=== PATIENT | male | born 1945 | race Caucasian/White ===

== ENCOUNTER 2020-09-23 07:20 | Inpatient (IN) | payer MEDICARE ==
[2020-09-24] MEDS ORDERED: Fluticasone Propionate Nasal Spray 16 gm Bottle NASAL PRN (19:36)
[2020-09-24] MEDS ORDERED: traMADol HCl 50 MG TAB PO PRN (19:36)
[2020-09-24] MEDS ORDERED: Dextrose 50% Abboject 50 ML SYRINGE IVP PRN (20:15)
[2020-09-24] MEDS ORDERED: Dextrose 5% in Water 1,000 ML IV PRN (20:15)
[2020-09-24] MEDS: HYDROcodone/Acetaminophen 10/325 mg Tablet PO PRN (20:34)
[2020-09-24] MEDS: Allopurinol 100 MG TAB PO SCH (20:35)
[2020-09-24] MEDS: Aspirin 81 mg Enteric Coated Tablet PO SCH (20:36)
[2020-09-24] MEDS: Lisinopril 20 MG TAB PO SCH (20:36)
[2020-09-24] MEDS: Metoprolol Tartrate 50 MG TAB PO SCH (20:37)
[2020-09-24] MEDS: CeleCOXIB 100 MG CAP PO SCH (20:37)
[2020-09-24] MEDS: Senokot S 8.6-50 MG TAB PO SCH (20:38)
[2020-09-24] MEDS: Brimonidine Tartrate 0.2% Ophth Soln 5 ml Bottle R EYE SCH (20:38)
[2020-09-24] MEDS ORDERED: BENAZEPRIL HCL 10 MG PO SCH (21:00)
[2020-09-24] MEDS ORDERED: Vancomycin HCl 750 MG VIAL IVPB SCH (23:00)
[2020-09-24] MEDS: Vancomycin HCl 750 MG in Sodium Chloride 0.9% 250 ML 250 ML IVPB SCH (23:24)
[2020-09-24] MEDS ORDERED: HYDROcodone/Acetaminophen 10/325 mg Tablet PO SCH (23:59)
[2020-09-25] MEDS ORDERED: traMADol HCl 50 MG TAB ONE ×2 (00:39→06:23)
[2020-09-25] MEDS ORDERED: Cyclobenzaprine 10 MG TAB ONE (00:39)
[2020-09-25] MEDS: traMADol HCl 50 MG TAB PO PRN ×2 (00:43→06:26)
[2020-09-25] MEDS: Cyclobenzaprine 10 MG TAB PO PRN ×2 (00:44→09:55)
[2020-09-25] MEDS: Cefepime 1 GM in Sodium Chloride 0.9% 100 ML IVPB SCH ×2 (02:56→15:13)
[2020-09-25] MEDS ORDERED: Cefepime 1 GM VIAL IVPB SCH (03:00)
[2020-09-25] MEDS: HYDROcodone/Acetaminophen 10/325 mg Tablet PO PRN ×3 (03:51→20:17)
[2020-09-25] MEDS ORDERED: HERB PO SCH (09:00)
[2020-09-25] MEDS ORDERED: MV MN PO SCH (09:00)
[2020-09-25] MEDS ORDERED: BETA SITOSTEROL PO SCH (09:00)
[2020-09-25] MEDS: Aspirin 81 mg Enteric Coated Tablet PO SCH ×2 (09:36→20:19)
[2020-09-25] MEDS: Fish Oil 1,000 MG CAP PO SCH (09:36)
[2020-09-25] MEDS: Cyanocobalamin (Vitamin B-12) 1,000 MCG TAB PO SCH (09:36)
[2020-09-25] MEDS: metFORMIN XR 500 MG TAB PO SCH ×2 (09:37→16:40)
[2020-09-25] MEDS: CeleCOXIB 100 MG CAP PO SCH ×2 (09:38→20:15)
[2020-09-25] MEDS: Glimepiride 2 MG TAB PO SCH (09:39)
[2020-09-25] MEDS: Amlodipine 5 MG TAB PO SCH (09:40)
[2020-09-25] MEDS: Metoprolol Tartrate 50 MG TAB PO SCH ×2 (09:40→20:20)
[2020-09-25] MEDS: Gabapentin 300 MG CAP PO PRN (09:40)
[2020-09-25] MEDS: Hydrochlorothiazide 25 MG TAB PO SCH (09:40)
[2020-09-25] MEDS: Ferrous Sulfate 325 MG TAB PO SCH ×2 (09:42→16:40)
[2020-09-25] MEDS: Brimonidine Tartrate 0.2% Ophth Soln 5 ml Bottle R EYE SCH ×3 (09:43→20:19)
[2020-09-25] MEDS: Calcium Carbonate 500 MG TAB PO SCH (09:43)
[2020-09-25] MEDS: Latanoprost 0.005% Ophth Soln 2.5 ml Bottle EA EYE SCH (09:43)
[2020-09-25] MEDS: Polyethylene Glycol 3350 17 GM Packet PO SCH (11:43)
[2020-09-25] MEDS: Senokot S 8.6-50 MG TAB PO SCH ×2 (11:43→20:18)
[2020-09-25] MEDS: Vancomycin HCl 750 MG in Sodium Chloride 0.9% 250 ML 250 ML IVPB SCH ×2 (11:44→23:17)
[2020-09-25] MEDS: HumaLOG 300 UNITS/3 ML VIAL SC PRN ×2 (12:06→16:44)
[2020-09-25] MEDS ORDERED: Simethicone Chewable 80 MG TAB PO PRN (12:15)
--- NOTE | 2020-09-25 16:23 | HP ---
PRIMARY CARE PHYSICIAN: Mamie Gonsales. INFECTIOUS DISEASE SPECIALIST: Juwan Fuentes MD ORTHOPEDIST: Miguelangel Graham MD COMMISSION AUDITOR: Juwan aHwkins MD REASON FOR ADMISSION: To complete IV antibiotic an rehab n [facility] after recent joit surgery/hospitalization. HISTORY OF PRESENT ILLNESS: Mr. Foster is a very pleasant 75-year-old male with history of hypertension; BPH; chronic back pain, on narcotics; asthma; and type 2 diabetes. The patient had multiple joint replacements in both knees, both hips, and right shoulder. The hips were replaced 7 years ago and then he developed worsening pain on the left hip about a week before the admission. The patient underwent left hip fluoroscopic-guided arthrocentesis with stage revision of the left hip arthroplasty for infection the aspirate culture came back negative for anaerobes after 5 days. Acid fast bacilli smear came back no growth. The patient was treated with cefepime and Vancomycin for empiric treatment for possible prosthetic infection. He was recommended to complete his IV antibiotic until the end of September per Dr. Fuentes. Postoperatively, the patient did well and was walking using a rolling walker. He is recommended by Ortho to have a complete weightbearing on the right leg by but only to put 25% weight on the left leg. The patient was subsequently transferred to [facility] to complete IV antibiotic and for further rehab while completing the antibiotic. PICC line was placed prior to discharge on 09/24/2020. He is recommended to have a weekly routine lab followup thereafter. Other postoperative complications include anemia, likely from postoperative acute blood loss; constipation; and high blood pressure. The patient is currently on Pollock, tramadol, and Celebrex for pain management. The patient reports that he only takes Pollock for the most part. This morning, he was complaining of some abdominal discomfort. He reports no BM yet at this time. He reports having bowel movement yesterday prior to transfer. On examination, he was noted to have abdominal distention, but reports that he always has a big fat belly. He reports mild discomfort, but secondary to spasm of the abdomen more than anything else. He reports that he has been passing out gas since yesterday. He takes PPI, but did not have any relief since this morning. No nausea, no vomiting, no chest pain, no shortness of breath, and no pain with breathing at this time. The patient remains afebrile. He is eating fine with no significant swallowing issues. PAST MEDICAL HISTORY: 1. Hypertension. 2. Diabetes, type 2. 3. Gout. 4. GERD. 5. Hyperlipidemia. 6. Iron-deficiency anemia. 7. Glaucoma. 8. Asthma. 9. Obesity. 10. Chronic joint pain of multiple parts as above. 11. BPH. PAST SURGICAL HISTORY: 1. Multiple joint replacements including knees, both hips, and right shoulder. 2. Cataract removal. FAMILY HISTORY: Noncontributory. SOCIAL HISTORY: He used to work in a power plant and retired. Quit smoking in . No alcohol beverage use. Denies illicit drug use. CURRENT MEDICATIONS: 1. Pollock 10/325 two tablets q.6. 2. Ventolin HFA q.6 p.r.n. 3. Allopurinol 300 mg q.p.m. 4. Amlodipine 5 mg q.a.m. 5. Aspirin 81 mg p.o. b.i.d. 6. Benazepril 20 mg p.o. q.p.m. 7. Brimonidine tartrate ophthalmic solution 0.5 mg one drop in affected eye. 8. Cefepime 1 g b.i.d. 9. Celebrex 200 mg p.o. b.i.d. 10. Cyanocobalamin 1000 mcg p.o. daily. 11. Cyclobenzaprine 10 mg p.o. t.i.d. p.r.n. 12. Ferrous sulfate 325 mg p.o. b.i.d. 13. [place]-3 fatty acid fish oil daily. 14. Fluticasone nasal spray b.i.d. p.r.n. 15. Gabapentin 300 mg p.o. t.i.d. p.r.n. 16. Glimepiride 4 mg p.o. daily. 17. Latanoprost one drop in affected eye daily. 18. Metformin XR 1000 mg p.o. b.i.d. 19. Metoprolol 50 mg p.o. b.i.d. 20. Omeprazole 40 mg q.a.m. 21. Polyethylene glycol 17 g p.o. nightly. 22. Sennoside two tablets p.o. b.i.d. 23. Tramadol 50 mg p.o. q.6 h. p.r.n. 24. Vancomycin 750 mg IV q.12. REVIEW OF SYSTEMS: GENERAL: Denies fever or chills. Reports general weakness and fatigue. No diminished appetite. HEENT: No acute visual changes or hearing changes. No cold symptoms. CARDIOLOGIC: Denies chest pain, dyspnea on exertion, paroxysmal nocturnal dyspnea. Reports leg edema intermittently, GENITOURINARY: No dysuria, hematuria, frequency, urgency, or incontinence. ABDOMEN: Denies nausea, vomiting, diarrhea, melena, rectal bleeding. MUSCULOSKELETAL: Reports [id number] intermittent joint pain per HPI. No joint swelling. SKIN: Reports blister formation since the hospitalization. Reports no issues with postoperative site. No itching. No jaundice. PSYCHIATRIC: No depressive symptoms. No anxiety. No insomnia. PHYSICAL EXAMINATION: VITAL SIGNS: Blood pressure 154/73; OH: 100, RR: 18; Temp 97.8, 02 beverly 95% Weight 231 pounds and 1.6 ounces, Height 5'8''. GENERAL : awake,alert,oriented x 3, comfortable in chair,not in acute distress. HEENT: atraumatic, PERRL, intact EOM.Moist oral mucosa, no oral lesions. NECK: supple, no lymphadenopathy, C-spine full ROM. Flat JVD. CHEST: normal excursion, nonlabored breathing. LUNGS: good air movements, clear breath sounds, no rales, crackles, wheezing. HEART: Regular rate and rhythm, Normal S1 and S2, no murmurs. ABDOMEN: obese, mildly distended, with bowel sounds appreciated in 4 quadrants. soft, nontender to direct palpation, no rebound, no guarding, negative CVA tenderness. RECTAL: good sphincteric tone, no mass, full of soft stools per rectal vault.Brownish fecal material per examining finger. EXTREMITIES: Leg leg is edematous 1+ pitting; Right leg-trace nonpitting edema. SKIN: post-operative site on the left lateral thigh is intact , shekhar in place, dry, no drainage, no periwound erythema or edema. Two opened blisters on the adjacent medial side noted. + dry linear superficial wound, covered with yellowish dry scab middle abdomen, with minimal erythematous base. The surrounding areas are hairy. NEURO: nonfocal, gait-unsteady, able to transfer from chair to bed with the use of walker. LABORATORY STUDIES: Recent blood work. CBC on 09/24/2020: WBC 12.9, hemoglobin 9, hematocrit 27.2, and platelets 266. On 09/17/2020, PT 13.6 and INR of 1. Basic metabolic panel on 09/22/2020, sodium 138, potassium 3.7, chloride 108, BUN 22, creatinine 1.03, estimated GFR 70, glucose 88, and calcium 8.3. Vanc trough on 09/21 at 14.3, 09/23 at 24.9. Renal ultrasound on 09/20/2020, prompt evidence of probable left upper renal nonobstructing calculi and evidence of postvoid residual. Vascular ultrasound on 09/20/2020 showed no evidence of deep venous thrombosis of the left lower extremity. Hip x-ray on 09/18/2020, compatible with left hip arthroplasty. ASSESSMENT AND PLAN: 1. Prosthetic hip infection, requiring terminal supervisor IV antibiotic therapy. 2. Status post left hip fluoroscopically guided arthrocentesis. 3. 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 4. Anemia, acute on chronic. 5. Diabetes type 2, [id number]. 6. Benign prostatic hypertrophy. 7. Hypertension. 8. Asthma. 9. Gout. 10. Constipation. 11. Blister formation, abdomen and left thigh. 12. Physical deconditioning. 13. Unsteady gait. PLAN: 1. The patient is admitted to [facility] to complete IV antibiotic until the end of September per ID recommendations. We will continue vancomycin and cefepime as directed. Routine vancomycin trough Q.72 h. and weekly routine blood works. 2. Continue all current medications as modified per list. We will add probiotic and simethicone p.r.n. Consider imaging studies if pain/distention persists. 3. We will continue to monitor his GI issues,to ensure regular bowel movement. 4. Routine wound care with Silvadene for blister formation and change of dressing on postoperative site daily and prn.5. Staple removal per Ortho recommendations. We will call Dr. Graham's office on Monday for further instructions and followup appointment. 5. Accu check and SSI coverage, mild algorithm. 6. PT, OT eval and treat. 7. DVT prophylaxis with low-dose aspirin b.i.d., 8. GI prophylaxis with PPI. 9. Further recommendations depending on the hospital course. CODE STATUS: The patient reports FULL CODE. DISPOSITION: Home with once appropriate. Job ID: [id number] MTDD
[2020-09-25] MEDS: Allopurinol 100 MG TAB PO SCH (20:16)
[2020-09-25] MEDS: Lisinopril 20 MG TAB PO SCH (20:19)
[2020-09-25] MEDS: Silver Sulfadiazine 50 GM TUBE TOP SCH (20:20)
[2020-09-25] MEDS ORDERED: Ondansetron ODT 4 MG TAB SL PRN (21:34)
--- NOTE | 2020-09-25 21:42 | RAD ---
KUB: 09/25/20 PROVIDED CLINICAL HISTORY: Projecting vomiting. FINDINGS: Evaluation is limited by patient body habitus. There is conspicuous gaseous distention of colon in a nonspecific manner. There is no definite small bowel dilatation. There is absence of rectal gas. The supine nature of this study is not sensitive for detection of pneumoperitoneum. Evaluation for urina ry tract calculi is limited, without gross evidence for such. IMPRESSION: Nonspecific conspicuous gaseous distention of colon. POS: JESSICA
[2020-09-25] MEDS ORDERED: Ondansetron ODT 4 MG TAB SL SCH (23:59)
[2020-09-26] MEDS: Cefepime 1 GM in Sodium Chloride 0.9% 100 ML IVPB SCH ×2 (02:51→16:13)
[2020-09-26] MEDS: Cyclobenzaprine 10 MG TAB PO PRN (05:21)
[2020-09-26] MEDS: Senokot S 8.6-50 MG TAB PO SCH ×2 (08:19→20:07)
[2020-09-26] MEDS: Polyethylene Glycol 3350 17 GM Packet PO SCH (08:20)
[2020-09-26] MEDS: Fish Oil 1,000 MG CAP PO SCH (08:20)
[2020-09-26] MEDS: metFORMIN XR 500 MG TAB PO SCH ×2 (08:20→17:11)
[2020-09-26] MEDS: Calcium Carbonate 500 MG TAB PO SCH (08:21)
[2020-09-26] MEDS: Ferrous Sulfate 325 MG TAB PO SCH ×2 (08:21→17:11)
[2020-09-26] MEDS: Glimepiride 2 MG TAB PO SCH (08:21)
[2020-09-26] MEDS: Hydrochlorothiazide 25 MG TAB PO SCH (08:21)
[2020-09-26] MEDS: Aspirin 81 mg Enteric Coated Tablet PO SCH ×2 (08:21→20:07)
[2020-09-26] MEDS: Metoprolol Tartrate 50 MG TAB PO SCH ×2 (08:21→20:07)
[2020-09-26] MEDS: Amlodipine 5 MG TAB PO SCH (08:21)
[2020-09-26] MEDS: CeleCOXIB 100 MG CAP PO SCH ×2 (08:21→20:07)
[2020-09-26] MEDS: Saccharomyces boulardii 250 MG CAP PO SCH (08:22)
[2020-09-26] MEDS: Cyanocobalamin (Vitamin B-12) 1,000 MCG TAB PO SCH (08:22)
[2020-09-26] MEDS: Latanoprost 0.005% Ophth Soln 2.5 ml Bottle EA EYE SCH (08:24)
[2020-09-26] MEDS: Brimonidine Tartrate 0.2% Ophth Soln 5 ml Bottle R EYE SCH ×3 (08:26→20:08)
[2020-09-26] MEDS ORDERED: Silver Sulfadiazine 50 GM TUBE TOP SCH (09:00)
[2020-09-26 10:28] LABS: Vancomycin, Trough 62.8 ug/mL
[2020-09-26] MEDS ORDERED: Vancomycin HCl 750 MG in Sodium Chloride 0.9% 250 ML 250 ML IVPB SCH (11:00)
[2020-09-26] MEDS ORDERED: Simethicone Chewable 80 MG TAB PO PRN (11:03)
[2020-09-26] MEDS ORDERED: Fleet Enema 133 ML BOT FS PRN (11:04)
[2020-09-26] MEDS ORDERED: Bisacodyl 10 MG SUPP PR PRN (11:04)
[2020-09-26] MEDS: HYDROcodone/Acetaminophen 10/325 mg Tablet PO PRN ×3 (12:22→20:05)
[2020-09-26] MEDS: Lisinopril 20 MG TAB PO SCH (20:09)
[2020-09-26] MEDS: Allopurinol 100 MG TAB PO SCH (20:09)
[2020-09-26] MEDS: Silver Sulfadiazine 50 GM TUBE TOP SCH (20:10)
[2020-09-27] MEDS: Cefepime 1 GM in Sodium Chloride 0.9% 100 ML IVPB SCH ×2 (02:00→14:56)
[2020-09-27 07:00] LABS: #Basophils 0.1 thou/uL (0.0-0.2); #Eosinphils 1.2 thou/uL (0.0-0.7); #Lymphocytes 1.1 thou/uL (1.20-3.40); #Monocytes 1.2 thou/uL (0.11-0.59); #Neutrophils 7.5 thou/uL (1.40-6.50); %Basophils 1.1 % (0.0-1.0); %Lymphocytes 9.8 % (21.0-51.0); %Monocytes 10.4 % (0.0-10.0); %Neutrophils 67.7 % (42.0-75.0); Mean Corpuscular HGB CONC 33.4 g/dL (32.0-36.0); Mean Corpuscular Hemoglobin 30.2 pg (27.0-31.0); Mean Corpuscular Volume 90.2 fL (78.0-98.0); Mean Platelet Volume 6.2 fL (7.4-10.4); Platelet Count 331 thou/uL (130-400); RBC Distribution Width 14.4 % (11.5-14.5); Red Blood Cell (RBC) Count 2.65 mill/uL (4.70-6.10); White Blood Cell (WBC) Count 11.1 thou/uL (4.8-10.8)
[2020-09-27 07:01] LABS: Anion Gap 14 mmol/L (10-20); BUN (Urea Nitrogen) 70 mg/dL (8.4-25.7); Calc. Creatinine Clearance 26 mL/min (70-130); Carbon Dioxide 18 mmol/L (23-31); Chloride 108 mmol/L (98-107); Potassium 4.2 mmol/L (3.5-5.1); Sodium 136 mmol/L (136-145)
[2020-09-27 07:02] LABS: Calcium 8.2 mg/dL (7.8-10.44); Glucose 124 mg/dL (83-110)
[2020-09-27 08:28] LABS: Vancomycin, Random 46.6 ug/mL (See Comment)
[2020-09-27] MEDS: Polyethylene Glycol 3350 17 GM Packet PO SCH (08:36)
[2020-09-27] MEDS: Saccharomyces boulardii 250 MG CAP PO SCH (08:38)
[2020-09-27] MEDS: CeleCOXIB 100 MG CAP PO SCH (08:38)
[2020-09-27] MEDS: Ferrous Sulfate 325 MG TAB PO SCH ×2 (08:38→16:59)
[2020-09-27] MEDS: Cyanocobalamin (Vitamin B-12) 1,000 MCG TAB PO SCH (08:38)
[2020-09-27] MEDS: metFORMIN XR 500 MG TAB PO SCH (08:38)
[2020-09-27] MEDS: Glimepiride 2 MG TAB PO SCH (08:38)
[2020-09-27] MEDS: Senokot S 8.6-50 MG TAB PO SCH ×2 (08:39→21:12)
[2020-09-27] MEDS: Aspirin 81 mg Enteric Coated Tablet PO SCH ×2 (08:39→21:12)
[2020-09-27] MEDS: Fish Oil 1,000 MG CAP PO SCH (08:39)
[2020-09-27] MEDS: Amlodipine 5 MG TAB PO SCH (08:40)
[2020-09-27] MEDS: Metoprolol Tartrate 50 MG TAB PO SCH ×2 (08:40→21:12)
[2020-09-27] MEDS: Calcium Carbonate 500 MG TAB PO SCH (08:40)
[2020-09-27] MEDS: HYDROcodone/Acetaminophen 10/325 mg Tablet PO PRN ×2 (08:41→19:35)
[2020-09-27] MEDS: Brimonidine Tartrate 0.2% Ophth Soln 5 ml Bottle R EYE SCH ×3 (08:42→21:44)
[2020-09-27] MEDS: Latanoprost 0.005% Ophth Soln 2.5 ml Bottle EA EYE SCH (08:42)
[2020-09-27] MEDS: Hydrochlorothiazide 25 MG TAB PO SCH (08:43)
[2020-09-27] MEDS: Albuterol 200 PUFF (6.7GM INHALER) INH PRN (19:37)
[2020-09-27] MEDS ORDERED: HYDROcodone/Acetaminophen 10/325 mg Tablet PO SCH (21:30)
[2020-09-27] MEDS: Silver Sulfadiazine 50 GM TUBE TOP SCH (21:45)
[2020-09-28] MEDS: Cefepime 1 GM in Sodium Chloride 0.9% 100 ML IVPB SCH ×2 (02:34→20:38)
[2020-09-28 05:59] LABS: Anion Gap 12 mmol/L (10-20); BUN (Urea Nitrogen) 59 mg/dL (8.4-25.7); Calc. Creatinine Clearance 41 mL/min (70-130); Calcium 8.4 mg/dL (7.8-10.44); Carbon Dioxide 20 mmol/L (23-31); Chloride 110 mmol/L (98-107); Glucose 103 mg/dL (83-110); Sodium 138 mmol/L (136-145)
[2020-09-28] MEDS: Saccharomyces boulardii 250 MG CAP PO SCH (08:16)
[2020-09-28] MEDS: Senokot S 8.6-50 MG TAB PO SCH ×2 (08:16→20:40)
[2020-09-28] MEDS: Ferrous Sulfate 325 MG TAB PO SCH ×2 (08:16→17:07)
[2020-09-28] MEDS: Aspirin 81 mg Enteric Coated Tablet PO SCH ×2 (08:17→20:43)
[2020-09-28] MEDS: Fish Oil 1,000 MG CAP PO SCH (08:17)
[2020-09-28] MEDS: Calcium Carbonate 500 MG TAB PO SCH (08:17)
[2020-09-28] MEDS: Cyanocobalamin (Vitamin B-12) 1,000 MCG TAB PO SCH (08:17)
[2020-09-28] MEDS: Amlodipine 5 MG TAB PO SCH (08:17)
[2020-09-28] MEDS: Metoprolol Tartrate 50 MG TAB PO SCH ×2 (08:17→20:43)
[2020-09-28] MEDS: Brimonidine Tartrate 0.2% Ophth Soln 5 ml Bottle R EYE SCH ×3 (08:18→20:43)
[2020-09-28] MEDS: Polyethylene Glycol 3350 17 GM Packet PO SCH (08:18)
[2020-09-28] MEDS: Latanoprost 0.005% Ophth Soln 2.5 ml Bottle EA EYE SCH (08:18)
[2020-09-28] MEDS: HYDROcodone/Acetaminophen 10/325 mg Tablet PO PRN (11:29)
[2020-09-28 11:33] LABS: Vancomycin, Trough 32.9 ug/mL
[2020-09-28] MEDS ORDERED: VANCOMYCIN IVPB SCH ×2 (13:30)
[2020-09-28] MEDS: Silver Sulfadiazine 50 GM TUBE TOP SCH (20:42)
[2020-09-28] MEDS ORDERED: Ipratropium/Albuterol Sulfate 4 GM AER IH SCH (21:45)
[2020-09-28] MEDS: traMADol HCl 50 MG TAB PO PRN (22:12)
[2020-09-29] MEDS: Ipratropium/Albuterol Sulfate 4 GM AER IH PRN (05:20)
[2020-09-29] MEDS: Ferrous Sulfate 325 MG TAB PO SCH ×2 (08:11→17:26)
[2020-09-29] MEDS: Metoprolol Tartrate 50 MG TAB PO SCH ×2 (08:12→21:15)
[2020-09-29] MEDS: Amlodipine 5 MG TAB PO SCH (08:12)
[2020-09-29] MEDS: Aspirin 81 mg Enteric Coated Tablet PO SCH ×2 (08:12→21:15)
[2020-09-29] MEDS: Cyanocobalamin (Vitamin B-12) 1,000 MCG TAB PO SCH (08:13)
[2020-09-29] MEDS: Saccharomyces boulardii 250 MG CAP PO SCH (08:13)
[2020-09-29] MEDS: Fish Oil 1,000 MG CAP PO SCH (08:13)
[2020-09-29] MEDS: Calcium Carbonate 500 MG TAB PO SCH (08:13)
[2020-09-29] MEDS: Latanoprost 0.005% Ophth Soln 2.5 ml Bottle EA EYE SCH (08:15)
[2020-09-29] MEDS: Polyethylene Glycol 3350 17 GM Packet PO SCH (08:15)
[2020-09-29] MEDS: Senokot S 8.6-50 MG TAB PO SCH ×2 (08:15→21:15)
[2020-09-29] MEDS: Brimonidine Tartrate 0.2% Ophth Soln 5 ml Bottle R EYE SCH ×3 (08:18→21:13)
[2020-09-29 10:28] LABS: Vancomycin, Random 21.9 ug/mL (See Comment)
[2020-09-29 10:29] LABS: Anion Gap 14 mmol/L (10-20); BUN (Urea Nitrogen) 41 mg/dL (8.4-25.7); Calc. Creatinine Clearance 57 mL/min (70-130); Calcium 8.8 mg/dL (7.8-10.44); Carbon Dioxide 20 mmol/L (23-31); Chloride 107 mmol/L (98-107); Glucose 239 mg/dL (83-110); Potassium 4.4 mmol/L (3.5-5.1); Sodium 137 mmol/L (136-145)
[2020-09-29] MEDS: HumaLOG 300 UNITS/3 ML VIAL SC PRN ×2 (12:26→17:43)
[2020-09-29] MEDS: traMADol HCl 50 MG TAB PO PRN ×2 (13:04→21:13)
--- NOTE | 2020-09-29 19:50 | RAD ---
SINGLE VIEW OF THE CHEST: 09/29/20 COMPARISON: 08/22/19. HISTORY: Persistent cough. FINDINGS: Single view of the chest shows normal sized cardiomediastinal silhouette with atherosclerotic calcifi cations in the aorta. There is a left sided PICC line with its tip in the superior vena cava. There i s no evidence of consolidation. There may be a small left pleural effusion. The patient has a right s houlder arthroplasty. IMPRESSION: Possible left pleural effusion. POS: MELANIEA
[2020-09-29] MEDS ORDERED: Promethazine DM 6.25-15mg/5ml 120 ML BOT PO PRN (20:38)
[2020-09-29] MEDS ORDERED: Promethazine HCl 6.25 MG/5 ML Syrup ONE (20:56)
[2020-09-29] MEDS: Cefepime 1 GM in Sodium Chloride 0.9% 100 ML IVPB SCH (21:12)
[2020-09-29] MEDS: Vancomycin HCl 1 GM in Sodium Chloride 0.9% 250 ML 250 ML IVPB SCH (21:13)
[2020-09-29] MEDS: Silver Sulfadiazine 50 GM TUBE TOP SCH (21:13)
[2020-09-30] MEDS: Ipratropium/Albuterol Sulfate 4 GM AER IH PRN ×2 (05:47→20:38)
[2020-09-30] MEDS: Benzonatate 100 MG CAP PO SCH ×3 (08:21→20:37)
[2020-09-30] MEDS: Metoprolol Tartrate 50 MG TAB PO SCH ×2 (08:21→20:37)
[2020-09-30] MEDS: Calcium Carbonate 500 MG TAB PO SCH (08:22)
[2020-09-30] MEDS: Saccharomyces boulardii 250 MG CAP PO SCH (08:22)
[2020-09-30] MEDS: Cyanocobalamin (Vitamin B-12) 1,000 MCG TAB PO SCH (08:22)
[2020-09-30] MEDS: Fish Oil 1,000 MG CAP PO SCH (08:22)
[2020-09-30] MEDS: Latanoprost 0.005% Ophth Soln 2.5 ml Bottle EA EYE SCH (08:23)
[2020-09-30] MEDS: Ferrous Sulfate 325 MG TAB PO SCH ×2 (08:23→17:22)
[2020-09-30] MEDS: Amlodipine 5 MG TAB PO SCH (08:23)
[2020-09-30] MEDS: Aspirin 81 mg Enteric Coated Tablet PO SCH ×2 (08:23→20:37)
[2020-09-30] MEDS: Brimonidine Tartrate 0.2% Ophth Soln 5 ml Bottle R EYE SCH ×3 (08:24→20:37)
[2020-09-30] MEDS: Polyethylene Glycol 3350 17 GM Packet PO SCH (08:24)
[2020-09-30] MEDS: Senokot S 8.6-50 MG TAB PO SCH (08:24)
[2020-09-30] MEDS: HumaLOG 300 UNITS/3 ML VIAL SC PRN (17:21)
[2020-09-30 18:14] LABS: SARS-CoV-2 MS2 Positive; SARS-CoV-2 N Gene Negative; SARS-CoV-2 S Gene Negative; SARS-CoV-2 by NAA Not Detected (NotDetected); SARS-CoV-2 orf1ab Negative
[2020-09-30] MEDS ORDERED: Polyethylene Glycol 3350 17 GM Packet PO PRN (18:55)
[2020-09-30] MEDS ORDERED: Senokot S 8.6-50 MG TAB PO PRN (18:56)
[2020-09-30] MEDS: traMADol HCl 50 MG TAB PO PRN (20:36)
[2020-09-30] MEDS: Silver Sulfadiazine 50 GM TUBE TOP SCH (20:38)
[2020-09-30] MEDS: Cefepime 1 GM in Sodium Chloride 0.9% 100 ML IVPB SCH (20:38)
[2020-09-30] MEDS: Vancomycin HCl 1 GM in Sodium Chloride 0.9% 250 ML 250 ML IVPB SCH (21:08)
[2020-09-30 21:41] LABS: Vancomycin, Trough 15.9 ug/mL
[2020-10-01] MEDS: HYDROcodone/Acetaminophen 10/325 mg Tablet PO PRN ×3 (03:33→20:07)
[2020-10-01] MEDS: Gabapentin 300 MG CAP PO PRN (03:34)
[2020-10-01] MEDS: Fish Oil 1,000 MG CAP PO SCH (08:22)
[2020-10-01] MEDS: Aspirin 81 mg Enteric Coated Tablet PO SCH ×2 (08:22→20:06)
[2020-10-01] MEDS: Amlodipine 5 MG TAB PO SCH (08:22)
[2020-10-01] MEDS: Ferrous Sulfate 325 MG TAB PO SCH ×2 (08:22→17:22)
[2020-10-01] MEDS: Cyanocobalamin (Vitamin B-12) 1,000 MCG TAB PO SCH (08:23)
[2020-10-01] MEDS: Metoprolol Tartrate 50 MG TAB PO SCH ×2 (08:23→20:06)
[2020-10-01] MEDS: Calcium Carbonate 500 MG TAB PO SCH (08:23)
[2020-10-01] MEDS: Saccharomyces boulardii 250 MG CAP PO SCH (08:23)
[2020-10-01] MEDS: Benzonatate 100 MG CAP PO SCH ×3 (08:23→20:07)
[2020-10-01] MEDS: Brimonidine Tartrate 0.2% Ophth Soln 5 ml Bottle R EYE SCH ×3 (08:23→20:08)
[2020-10-01] MEDS: Latanoprost 0.005% Ophth Soln 2.5 ml Bottle EA EYE SCH (08:24)
[2020-10-01] MEDS: Ipratropium/Albuterol Sulfate 4 GM AER IH PRN (08:34)
[2020-10-01] MEDS: Albuterol 200 PUFF (6.7GM INHALER) INH PRN ×2 (08:35→17:22)
[2020-10-01] MEDS: HumaLOG 300 UNITS/3 ML VIAL SC PRN ×3 (08:36→17:23)
[2020-10-01] MEDS ORDERED: Finasteride 5 MG TAB PO SCH ×2 (18:30→21:00)
[2020-10-01] MEDS: Cefepime 1 GM in Sodium Chloride 0.9% 100 ML IVPB SCH (20:07)
[2020-10-01] MEDS: Silver Sulfadiazine 50 GM TUBE TOP SCH (20:08)
[2020-10-01] MEDS: Vancomycin HCl 1 GM in Sodium Chloride 0.9% 250 ML 250 ML IVPB SCH (21:15)
[2020-10-01 22:40] LABS: Anion Gap 13 mmol/L (10-20); BUN (Urea Nitrogen) 25 mg/dL (8.4-25.7); CRP (Inflammatory) 8.74 mg/dL (= or < 0.5); Calc. Creatinine Clearance 71 mL/min (70-130); Calcium 8.5 mg/dL (7.8-10.44); Carbon Dioxide 25 mmol/L (23-31); Chloride 101 mmol/L (98-107); Glucose 184 mg/dL (83-110); Potassium 4.5 mmol/L (3.5-5.1); Sodium 134 mmol/L (136-145); Vancomycin, Trough 13.1 ug/mL
[2020-10-02 01:02] LABS: Hemoglobin 8.4 g/dL (14.0-18.0); Mean Corpuscular HGB CONC 32.7 g/dL (32.0-36.0); Mean Corpuscular Hemoglobin 29.4 pg (27.0-31.0); Mean Corpuscular Volume 89.9 fL (78.0-98.0); RBC Distribution Width 14.9 % (11.5-14.5); Red Blood Cell (RBC) Count 2.87 mill/uL (4.70-6.10); White Blood Cell (WBC) Count 11.7 thou/uL (4.8-10.8)
[2020-10-02 01:03] LABS: MDiff Complete? YES; Mean Platelet Volume 5.7 fL (7.4-10.4); Platelet Count 461 thou/uL (130-400)
[2020-10-02 01:12] LABS: Band 3 % (5-11); Delete Auto Diff?? YES; Eosinophils 5 % (0-10); Lymphocytes 12 % (21-51); Monocytes 13 % (0-10); Neutrophil 67 % (42-75)
[2020-10-02 01:13] LABS: Anisocytosis MODERATE=16-30 cells (100X) (0-5/hpf); Hypochromia SLIGHT = 6-15 cells (100X) (0-5/hpf); Platelet Morphology Comment Appears Increased
[2020-10-02] MEDS: Ipratropium/Albuterol Sulfate 4 GM AER IH PRN (08:16)
[2020-10-02] MEDS: Brimonidine Tartrate 0.2% Ophth Soln 5 ml Bottle R EYE SCH ×3 (08:17→20:45)
[2020-10-02] MEDS: Ferrous Sulfate 325 MG TAB PO SCH ×2 (08:18→17:34)
[2020-10-02] MEDS: Metoprolol Tartrate 50 MG TAB PO SCH ×2 (08:18→20:45)
[2020-10-02] MEDS: Aspirin 81 mg Enteric Coated Tablet PO SCH ×2 (08:18→20:42)
[2020-10-02] MEDS: Cyanocobalamin (Vitamin B-12) 1,000 MCG TAB PO SCH (08:19)
[2020-10-02] MEDS: Benzonatate 100 MG CAP PO SCH ×3 (08:19→20:43)
[2020-10-02] MEDS: Calcium Carbonate 500 MG TAB PO SCH (08:19)
[2020-10-02] MEDS: Saccharomyces boulardii 250 MG CAP PO SCH (08:19)
[2020-10-02] MEDS: Fish Oil 1,000 MG CAP PO SCH (08:19)
[2020-10-02] MEDS: Amlodipine 5 MG TAB PO SCH (08:19)
[2020-10-02] MEDS: Finasteride 5 MG TAB PO SCH (08:19)
[2020-10-02] MEDS: Latanoprost 0.005% Ophth Soln 2.5 ml Bottle EA EYE SCH (08:20)
[2020-10-02] MEDS: HumaLOG 300 UNITS/3 ML VIAL SC PRN (08:21)
[2020-10-02] MEDS: HYDROcodone/Acetaminophen 10/325 mg Tablet PO PRN ×2 (17:34→23:41)
[2020-10-02] MEDS: Cefepime 1 GM in Sodium Chloride 0.9% 100 ML IVPB SCH (20:42)
[2020-10-02] MEDS: Tamsulosin HCl 0.4 MG CAP PO SCH (20:44)
[2020-10-02] MEDS: Silver Sulfadiazine 50 GM TUBE TOP SCH (20:46)
[2020-10-02] MEDS: traMADol HCl 50 MG TAB PO PRN (21:28)
[2020-10-02] MEDS: Vancomycin HCl 1 GM in Sodium Chloride 0.9% 250 ML 250 ML IVPB SCH (21:56)
[2020-10-03] MEDS: traMADol HCl 50 MG TAB PO PRN ×2 (05:21→22:20)
[2020-10-03 06:16] LABS: Anion Gap 12 mmol/L (10-20); BUN (Urea Nitrogen) 23 mg/dL (8.4-25.7); Calc. Creatinine Clearance 77 mL/min (70-130); Carbon Dioxide 26 mmol/L (23-31); Chloride 102 mmol/L (98-107); Glucose 172 mg/dL (83-110); Potassium 5.2 mmol/L (3.5-5.1); Sodium 135 mmol/L (136-145)
[2020-10-03] MEDS: HYDROcodone/Acetaminophen 10/325 mg Tablet PO PRN ×2 (08:25→15:42)
[2020-10-03] MEDS: Amlodipine 5 MG TAB PO SCH (08:26)
[2020-10-03] MEDS: Benzonatate 100 MG CAP PO SCH ×3 (08:26→21:44)
[2020-10-03] MEDS: Aspirin 81 mg Enteric Coated Tablet PO SCH ×2 (08:26→21:44)
[2020-10-03] MEDS: Finasteride 5 MG TAB PO SCH (08:27)
[2020-10-03] MEDS: Calcium Carbonate 500 MG TAB PO SCH (08:27)
[2020-10-03] MEDS: Fish Oil 1,000 MG CAP PO SCH (08:27)
[2020-10-03] MEDS: Metoprolol Tartrate 50 MG TAB PO SCH ×2 (08:27→21:45)
[2020-10-03] MEDS: Cyanocobalamin (Vitamin B-12) 1,000 MCG TAB PO SCH (08:27)
[2020-10-03] MEDS: Ferrous Sulfate 325 MG TAB PO SCH ×2 (08:27→17:08)
[2020-10-03] MEDS: Saccharomyces boulardii 250 MG CAP PO SCH (08:27)
[2020-10-03] MEDS: Brimonidine Tartrate 0.2% Ophth Soln 5 ml Bottle R EYE SCH ×3 (08:27→21:46)
[2020-10-03] MEDS: Latanoprost 0.005% Ophth Soln 2.5 ml Bottle EA EYE SCH (08:28)
[2020-10-03] MEDS: HumaLOG 300 UNITS/3 ML VIAL SC PRN ×2 (08:29→17:09)
[2020-10-03] MEDS: Tamsulosin HCl 0.4 MG CAP PO SCH (21:45)
[2020-10-03] MEDS: Cefepime 1 GM in Sodium Chloride 0.9% 100 ML IVPB SCH (21:46)
[2020-10-03] MEDS: Silver Sulfadiazine 50 GM TUBE TOP SCH (22:11)
[2020-10-03 22:54] LABS: Vancomycin, Trough 12.8 ug/mL
[2020-10-04] MEDS: Vancomycin HCl 1 GM in Sodium Chloride 0.9% 250 ML 250 ML IVPB SCH ×2 (01:38)
[2020-10-04] MEDS: HYDROcodone/Acetaminophen 10/325 mg Tablet PO PRN ×2 (07:54→21:06)
[2020-10-04] MEDS: HumaLOG 300 UNITS/3 ML VIAL SC PRN ×2 (08:30→17:17)
[2020-10-04] MEDS: Aspirin 81 mg Enteric Coated Tablet PO SCH ×2 (08:31→21:05)
[2020-10-04] MEDS: Fish Oil 1,000 MG CAP PO SCH (08:31)
[2020-10-04] MEDS: Metoprolol Tartrate 50 MG TAB PO SCH ×2 (08:31→21:06)
[2020-10-04] MEDS: Benzonatate 100 MG CAP PO SCH ×3 (08:31→21:05)
[2020-10-04] MEDS: Amlodipine 5 MG TAB PO SCH (08:31)
[2020-10-04] MEDS: Cyanocobalamin (Vitamin B-12) 1,000 MCG TAB PO SCH (08:31)
[2020-10-04] MEDS: Ferrous Sulfate 325 MG TAB PO SCH ×2 (08:31→17:18)
[2020-10-04] MEDS: Brimonidine Tartrate 0.2% Ophth Soln 5 ml Bottle R EYE SCH ×3 (08:32→21:10)
[2020-10-04] MEDS: Saccharomyces boulardii 250 MG CAP PO SCH (08:32)
[2020-10-04] MEDS: Calcium Carbonate 500 MG TAB PO SCH (08:32)
[2020-10-04] MEDS: Latanoprost 0.005% Ophth Soln 2.5 ml Bottle EA EYE SCH (08:32)
[2020-10-04] MEDS: Finasteride 5 MG TAB PO SCH (08:32)
[2020-10-04] MEDS: Tamsulosin HCl 0.4 MG CAP PO SCH (21:05)
[2020-10-04] MEDS: Cefepime 1 GM in Sodium Chloride 0.9% 100 ML IVPB SCH (21:08)
[2020-10-04] MEDS: Silver Sulfadiazine 50 GM TUBE TOP SCH (21:10)
[2020-10-05] MEDS: Vancomycin HCl 1 GM in Sodium Chloride 0.9% 250 ML 250 ML IVPB SCH (02:11)
[2020-10-05 03:37] LABS: Vancomycin, Trough 12.2 ug/mL
[2020-10-05] MEDS: Ferrous Sulfate 325 MG TAB PO SCH ×2 (08:24→17:53)
[2020-10-05] MEDS: Amlodipine 5 MG TAB PO SCH (08:25)
[2020-10-05] MEDS: Benzonatate 100 MG CAP PO SCH ×3 (08:25→21:07)
[2020-10-05] MEDS: Aspirin 81 mg Enteric Coated Tablet PO SCH ×2 (08:25→21:07)
[2020-10-05] MEDS: Brimonidine Tartrate 0.2% Ophth Soln 5 ml Bottle R EYE SCH ×3 (08:26→21:11)
[2020-10-05] MEDS: Calcium Carbonate 500 MG TAB PO SCH (08:26)
[2020-10-05] MEDS: Finasteride 5 MG TAB PO SCH (08:27)
[2020-10-05] MEDS: Latanoprost 0.005% Ophth Soln 2.5 ml Bottle EA EYE SCH (08:27)
[2020-10-05] MEDS: Fish Oil 1,000 MG CAP PO SCH (08:27)
[2020-10-05] MEDS: Saccharomyces boulardii 250 MG CAP PO SCH (08:27)
[2020-10-05] MEDS: Metoprolol Tartrate 50 MG TAB PO SCH ×2 (08:27→21:08)
[2020-10-05] MEDS: Cyanocobalamin (Vitamin B-12) 1,000 MCG TAB PO SCH (08:27)
[2020-10-05] MEDS: HumaLOG 300 UNITS/3 ML VIAL SC PRN ×3 (08:30→18:06)
[2020-10-05] MEDS: Ipratropium/Albuterol Sulfate 4 GM AER IH PRN (08:48)
[2020-10-05] MEDS: Albuterol 200 PUFF (6.7GM INHALER) INH PRN (08:49)
[2020-10-05] MEDS: HYDROcodone/Acetaminophen 10/325 mg Tablet PO PRN (15:16)
[2020-10-05] MEDS: Cefepime 1 GM in Sodium Chloride 0.9% 100 ML IVPB SCH (17:54)
[2020-10-05] MEDS ORDERED: Cefepime 1 GM in Sodium Chloride 0.9% 100 ML IVPB SCH (20:00)
[2020-10-05] MEDS: Tamsulosin HCl 0.4 MG CAP PO SCH (21:07)
[2020-10-05] MEDS: Vancomycin HCl 750 MG in Sodium Chloride 0.9% 250 ML 250 ML IVPB SCH (21:08)
[2020-10-05] MEDS: Silver Sulfadiazine 50 GM TUBE TOP SCH (21:11)
[2020-10-05] MEDS: Vancomycin HCl 500 MG in Sodium Chloride 0.9% 100 ML IVPB SCH (21:36)
[2020-10-06] MEDS: HYDROcodone/Acetaminophen 10/325 mg Tablet PO PRN ×3 (00:45→19:38)
[2020-10-06] MEDS ORDERED: Vancomycin HCl 750 MG in Sodium Chloride 0.9% 250 ML 250 ML IVPB SCH (02:00)
[2020-10-06] MEDS: traMADol HCl 50 MG TAB PO PRN ×2 (02:18→22:30)
[2020-10-06] MEDS ORDERED: Vancomycin HCl 500 MG in Sodium Chloride 0.9% 100 ML IVPB SCH (03:00)
[2020-10-06] MEDS: Ipratropium/Albuterol Sulfate 4 GM AER IH PRN (08:31)
[2020-10-06] MEDS: Brimonidine Tartrate 0.2% Ophth Soln 5 ml Bottle R EYE SCH ×3 (08:32→20:47)
[2020-10-06] MEDS: Ferrous Sulfate 325 MG TAB PO SCH ×2 (08:33→16:53)
[2020-10-06] MEDS: Amlodipine 5 MG TAB PO SCH (08:33)
[2020-10-06] MEDS: Metoprolol Tartrate 50 MG TAB PO SCH ×2 (08:34→20:46)
[2020-10-06] MEDS: Cyanocobalamin (Vitamin B-12) 1,000 MCG TAB PO SCH (08:34)
[2020-10-06] MEDS: Aspirin 81 mg Enteric Coated Tablet PO SCH ×2 (08:34→20:45)
[2020-10-06] MEDS: Finasteride 5 MG TAB PO SCH (08:34)
[2020-10-06] MEDS: Saccharomyces boulardii 250 MG CAP PO SCH (08:34)
[2020-10-06] MEDS: Benzonatate 100 MG CAP PO SCH ×3 (08:34→20:46)
[2020-10-06] MEDS: Fish Oil 1,000 MG CAP PO SCH (08:34)
[2020-10-06] MEDS: Latanoprost 0.005% Ophth Soln 2.5 ml Bottle EA EYE SCH (08:34)
[2020-10-06] MEDS: Calcium Carbonate 500 MG TAB PO SCH (08:34)
[2020-10-06] MEDS: HumaLOG 300 UNITS/3 ML VIAL SC PRN ×3 (08:38→16:54)
[2020-10-06] MEDS: Cefepime 1 GM in Sodium Chloride 0.9% 100 ML IVPB SCH (16:57)
[2020-10-06] MEDS: Tamsulosin HCl 0.4 MG CAP PO SCH (20:47)
[2020-10-06] MEDS: Vancomycin HCl 750 MG in Sodium Chloride 0.9% 250 ML 250 ML IVPB SCH (20:48)
[2020-10-06] MEDS: Silver Sulfadiazine 50 GM TUBE TOP SCH (21:20)
[2020-10-06] MEDS: Vancomycin HCl 500 MG in Sodium Chloride 0.9% 100 ML IVPB SCH (21:50)
[2020-10-07] MEDS: Fish Oil 1,000 MG CAP PO SCH (08:45)
[2020-10-07] MEDS: Aspirin 81 mg Enteric Coated Tablet PO SCH ×2 (08:45→21:39)
[2020-10-07] MEDS: Amlodipine 5 MG TAB PO SCH (08:46)
[2020-10-07] MEDS: Calcium Carbonate 500 MG TAB PO SCH (08:46)
[2020-10-07] MEDS: Cyanocobalamin (Vitamin B-12) 1,000 MCG TAB PO SCH (08:46)
[2020-10-07] MEDS: Ferrous Sulfate 325 MG TAB PO SCH ×2 (08:46→22:42)
[2020-10-07] MEDS: Benzonatate 100 MG CAP PO SCH ×3 (08:46→22:41)
[2020-10-07] MEDS: Finasteride 5 MG TAB PO SCH (08:46)
[2020-10-07] MEDS: Saccharomyces boulardii 250 MG CAP PO SCH (08:46)
[2020-10-07] MEDS: Metoprolol Tartrate 50 MG TAB PO SCH ×2 (08:47→21:40)
[2020-10-07] MEDS: HumaLOG 300 UNITS/3 ML VIAL SC PRN ×3 (08:47→21:44)
[2020-10-07] MEDS: Latanoprost 0.005% Ophth Soln 2.5 ml Bottle EA EYE SCH (08:52)
[2020-10-07] MEDS: Brimonidine Tartrate 0.2% Ophth Soln 5 ml Bottle R EYE SCH ×3 (08:52→22:52)
[2020-10-07] MEDS: HYDROcodone/Acetaminophen 10/325 mg Tablet PO PRN ×2 (10:11→19:38)
[2020-10-07] MEDS ORDERED: Sodium Chloride 0.9% 20 ML ONE (17:17)
[2020-10-07 20:50] LABS: Vancomycin, Trough 14.6 ug/mL
[2020-10-07] MEDS: Tamsulosin HCl 0.4 MG CAP PO SCH (21:40)
[2020-10-07] MEDS: Vancomycin HCl 750 MG in Sodium Chloride 0.9% 250 ML 250 ML IVPB SCH (21:41)
[2020-10-07] MEDS: Silver Sulfadiazine 50 GM TUBE TOP SCH (22:40)
[2020-10-07] MEDS: Cefepime 1 GM in Sodium Chloride 0.9% 100 ML IVPB SCH (22:42)
[2020-10-07] MEDS: Vancomycin HCl 500 MG in Sodium Chloride 0.9% 100 ML IVPB SCH (22:49)
[2020-10-08] MEDS: traMADol HCl 50 MG TAB PO PRN (00:21)
[2020-10-08] MEDS: Melatonin 3 MG TAB PO PRN (00:22)
[2020-10-08] MEDS: Gabapentin 300 MG CAP PO PRN (00:24)
[2020-10-08] MEDS: HYDROcodone/Acetaminophen 10/325 mg Tablet PO PRN ×2 (04:56→19:40)
[2020-10-08] MEDS: HumaLOG 300 UNITS/3 ML VIAL SC PRN ×2 (08:40→17:06)
[2020-10-08] MEDS: Fish Oil 1,000 MG CAP PO SCH (08:40)
[2020-10-08] MEDS: Finasteride 5 MG TAB PO SCH (08:41)
[2020-10-08] MEDS: Saccharomyces boulardii 250 MG CAP PO SCH (08:41)
[2020-10-08] MEDS: Cyanocobalamin (Vitamin B-12) 1,000 MCG TAB PO SCH (08:41)
[2020-10-08] MEDS: Benzonatate 100 MG CAP PO SCH ×3 (08:41→20:49)
[2020-10-08] MEDS: Calcium Carbonate 500 MG TAB PO SCH (08:41)
[2020-10-08] MEDS: Metoprolol Tartrate 50 MG TAB PO SCH ×2 (08:41→20:50)
[2020-10-08] MEDS: Amlodipine 5 MG TAB PO SCH (08:42)
[2020-10-08] MEDS: Ferrous Sulfate 325 MG TAB PO SCH ×2 (08:42→17:08)
[2020-10-08] MEDS: Aspirin 81 mg Enteric Coated Tablet PO SCH ×2 (08:42→20:49)
[2020-10-08] MEDS: Brimonidine Tartrate 0.2% Ophth Soln 5 ml Bottle R EYE SCH ×3 (08:42→20:51)
[2020-10-08] MEDS: Latanoprost 0.005% Ophth Soln 2.5 ml Bottle EA EYE SCH (08:42)
[2020-10-08] MEDS: Cefepime 1 GM in Sodium Chloride 0.9% 100 ML IVPB SCH (17:08)
[2020-10-08] MEDS: Tamsulosin HCl 0.4 MG CAP PO SCH (20:50)
[2020-10-08] MEDS: Vancomycin HCl 750 MG in Sodium Chloride 0.9% 250 ML 250 ML IVPB SCH (20:52)
[2020-10-08] MEDS: Vancomycin HCl 500 MG in Sodium Chloride 0.9% 100 ML IVPB SCH (21:39)
[2020-10-08] MEDS: Silver Sulfadiazine 50 GM TUBE TOP SCH (22:00)
[2020-10-09 06:07] LABS: Anion Gap 13 mmol/L (10-20); BUN (Urea Nitrogen) 18 mg/dL (8.4-25.7); CRP (Inflammatory) 5.65 mg/dL (= or < 0.5); Calc. Creatinine Clearance 74 mL/min (70-130); Calcium 9.1 mg/dL (7.8-10.44); Carbon Dioxide 26 mmol/L (23-31); Chloride 104 mmol/L (98-107); Glucose 182 mg/dL (83-110); Potassium 4.9 mmol/L (3.5-5.1); Sodium 138 mmol/L (136-145)
[2020-10-09 06:54] LABS: Hemoglobin 9.4 g/dL (14.0-18.0); Mean Corpuscular HGB CONC 31.7 g/dL (32.0-36.0); Mean Corpuscular Hemoglobin 29.2 pg (27.0-31.0); Mean Corpuscular Volume 91.9 fL (78.0-98.0); Platelet Count 397 thou/uL (130-400); RBC Distribution Width 14.7 % (11.5-14.5); Red Blood Cell (RBC) Count 3.23 mill/uL (4.70-6.10); White Blood Cell (WBC) Count 8.4 thou/uL (4.8-10.8)
[2020-10-09 07:12] LABS: Band 2 % (5-11); MDiff Complete? YES; Monocytes 6 % (0-10); Neutrophil 63 % (42-75)
[2020-10-09 07:13] LABS: Anisocytosis SLIGHT = 6-15 cells (100X) (0-5/hpf); Eosinophils 10 % (0-10); Lymphocytes 19 % (21-51); Platelet Morphology Comment Appears Adequate
[2020-10-09] MEDS: Fish Oil 1,000 MG CAP PO SCH (08:23)
[2020-10-09] MEDS: HumaLOG 300 UNITS/3 ML VIAL SC PRN ×3 (08:23→20:38)
[2020-10-09] MEDS: Benzonatate 100 MG CAP PO SCH ×3 (08:23→20:39)
[2020-10-09] MEDS: Aspirin 81 mg Enteric Coated Tablet PO SCH ×2 (08:23→20:39)
[2020-10-09] MEDS: Saccharomyces boulardii 250 MG CAP PO SCH (08:24)
[2020-10-09] MEDS: Amlodipine 5 MG TAB PO SCH (08:24)
[2020-10-09] MEDS: Calcium Carbonate 500 MG TAB PO SCH (08:24)
[2020-10-09] MEDS: Ferrous Sulfate 325 MG TAB PO SCH ×2 (08:24→18:00)
[2020-10-09] MEDS: Cyanocobalamin (Vitamin B-12) 1,000 MCG TAB PO SCH (08:25)
[2020-10-09] MEDS: Finasteride 5 MG TAB PO SCH (08:25)
[2020-10-09] MEDS: Brimonidine Tartrate 0.2% Ophth Soln 5 ml Bottle R EYE SCH ×3 (08:25→20:40)
[2020-10-09] MEDS: Latanoprost 0.005% Ophth Soln 2.5 ml Bottle EA EYE SCH (08:25)
[2020-10-09] MEDS: Metoprolol Tartrate 50 MG TAB PO SCH ×2 (08:25→20:39)
[2020-10-09] MEDS: HYDROcodone/Acetaminophen 10/325 mg Tablet PO PRN ×2 (08:44→18:14)
[2020-10-09] MEDS: traMADol HCl 50 MG TAB PO PRN (14:09)
[2020-10-09] MEDS: Cefepime 1 GM in Sodium Chloride 0.9% 100 ML IVPB SCH (17:59)
[2020-10-09] MEDS: metFORMIN 500 MG TAB PO SCH (18:00)
[2020-10-09] MEDS: Vancomycin HCl 750 MG in Sodium Chloride 0.9% 250 ML 250 ML IVPB SCH ×2 (20:38→22:54)
[2020-10-09] MEDS: Mupirocin 2% Ointment 22 GM Tube TOP SCH (20:40)
[2020-10-09] MEDS: Tamsulosin HCl 0.4 MG CAP PO SCH (20:41)
[2020-10-09] MEDS ORDERED: Mupirocin 2% Ointment 22 GM Tube TOP SCH (21:00)
[2020-10-09 21:19] LABS: Vancomycin, Trough 25.7 ug/mL
[2020-10-10] MEDS: Vancomycin HCl 500 MG in Sodium Chloride 0.9% 100 ML IVPB SCH (07:06)
[2020-10-10] MEDS: Ferrous Sulfate 325 MG TAB PO SCH ×2 (08:50→17:04)
[2020-10-10] MEDS: metFORMIN 500 MG TAB PO SCH ×2 (08:50→17:04)
[2020-10-10] MEDS: Amlodipine 5 MG TAB PO SCH (08:50)
[2020-10-10] MEDS: Saccharomyces boulardii 250 MG CAP PO SCH (08:51)
[2020-10-10] MEDS: Benzonatate 100 MG CAP PO SCH ×3 (08:51→21:02)
[2020-10-10] MEDS: Finasteride 5 MG TAB PO SCH (08:51)
[2020-10-10] MEDS: HYDROcodone/Acetaminophen 10/325 mg Tablet PO PRN ×2 (08:51→21:05)
[2020-10-10] MEDS: Fish Oil 1,000 MG CAP PO SCH (08:51)
[2020-10-10] MEDS: Aspirin 81 mg Enteric Coated Tablet PO SCH ×2 (08:51→21:02)
[2020-10-10] MEDS: Metoprolol Tartrate 50 MG TAB PO SCH ×2 (08:52→21:02)
[2020-10-10] MEDS: Calcium Carbonate 500 MG TAB PO SCH (08:52)
[2020-10-10] MEDS: Brimonidine Tartrate 0.2% Ophth Soln 5 ml Bottle R EYE SCH ×3 (08:52→21:07)
[2020-10-10] MEDS: Cyanocobalamin (Vitamin B-12) 1,000 MCG TAB PO SCH (08:52)
[2020-10-10] MEDS: Latanoprost 0.005% Ophth Soln 2.5 ml Bottle EA EYE SCH (08:53)
[2020-10-10] MEDS: Mupirocin 2% Ointment 22 GM Tube TOP SCH ×3 (08:54→21:07)
[2020-10-10] MEDS: HumaLOG 300 UNITS/3 ML VIAL SC PRN ×2 (08:55→12:17)
[2020-10-10] MEDS: traMADol HCl 50 MG TAB PO PRN (14:09)
[2020-10-10] MEDS: Cefepime 1 GM in Sodium Chloride 0.9% 100 ML IVPB SCH (17:05)
[2020-10-10] MEDS: Vancomycin HCl 750 MG in Sodium Chloride 0.9% 250 ML 250 ML IVPB SCH (20:51)
[2020-10-10] MEDS: Tamsulosin HCl 0.4 MG CAP PO SCH (21:02)
[2020-10-10] MEDS: Melatonin 3 MG TAB PO PRN (21:05)
[2020-10-10] MEDS: Gabapentin 300 MG CAP PO PRN (21:06)
[2020-10-11] MEDS: HYDROcodone/Acetaminophen 10/325 mg Tablet PO PRN ×2 (08:59→17:28)
[2020-10-11] MEDS: Ferrous Sulfate 325 MG TAB PO SCH ×2 (09:00→17:19)
[2020-10-11] MEDS: metFORMIN 500 MG TAB PO SCH ×2 (09:00→17:19)
[2020-10-11] MEDS: Amlodipine 5 MG TAB PO SCH (09:00)
[2020-10-11] MEDS: Metoprolol Tartrate 50 MG TAB PO SCH ×2 (09:00→20:11)
[2020-10-11] MEDS: Aspirin 81 mg Enteric Coated Tablet PO SCH ×2 (09:00→20:09)
[2020-10-11] MEDS: Fish Oil 1,000 MG CAP PO SCH (09:00)
[2020-10-11] MEDS: Latanoprost 0.005% Ophth Soln 2.5 ml Bottle EA EYE SCH (09:01)
[2020-10-11] MEDS: Brimonidine Tartrate 0.2% Ophth Soln 5 ml Bottle R EYE SCH ×3 (09:01→20:09)
[2020-10-11] MEDS: Calcium Carbonate 500 MG TAB PO SCH (09:01)
[2020-10-11] MEDS: Saccharomyces boulardii 250 MG CAP PO SCH (09:01)
[2020-10-11] MEDS: Cyanocobalamin (Vitamin B-12) 1,000 MCG TAB PO SCH (09:01)
[2020-10-11] MEDS: Finasteride 5 MG TAB PO SCH (09:01)
[2020-10-11] MEDS: Benzonatate 100 MG CAP PO SCH ×3 (09:01→20:10)
[2020-10-11] MEDS: Mupirocin 2% Ointment 22 GM Tube TOP SCH ×3 (09:02→20:11)
[2020-10-11] MEDS: HumaLOG 300 UNITS/3 ML VIAL SC PRN ×3 (09:07→17:31)
[2020-10-11] MEDS ORDERED: Proctozone-HC 30 GM TUBE TOP PRN (12:47)
[2020-10-11] MEDS: traMADol HCl 50 MG TAB PO PRN (13:28)
[2020-10-11] MEDS: Cefepime 1 GM in Sodium Chloride 0.9% 100 ML IVPB SCH (17:18)
[2020-10-11] MEDS: Vancomycin HCl 750 MG in Sodium Chloride 0.9% 250 ML 250 ML IVPB SCH (20:10)
[2020-10-11] MEDS: Lisinopril 20 MG TAB PO SCH (20:10)
[2020-10-11] MEDS: Tamsulosin HCl 0.4 MG CAP PO SCH (20:10)
[2020-10-11] MEDS ORDERED: Proctozone-HC 30 GM TUBE TOP SCH (21:00)
[2020-10-12] MEDS: Latanoprost 0.005% Ophth Soln 2.5 ml Bottle EA EYE SCH (08:14)
[2020-10-12] MEDS: HumaLOG 300 UNITS/3 ML VIAL SC PRN (08:15)
[2020-10-12] MEDS: Brimonidine Tartrate 0.2% Ophth Soln 5 ml Bottle R EYE SCH ×3 (08:15→20:22)
[2020-10-12] MEDS: Aspirin 81 mg Enteric Coated Tablet PO SCH ×2 (08:16→20:22)
[2020-10-12] MEDS: Metoprolol Tartrate 50 MG TAB PO SCH ×2 (08:16→20:24)
[2020-10-12] MEDS: Finasteride 5 MG TAB PO SCH (08:16)
[2020-10-12] MEDS: Amlodipine 5 MG TAB PO SCH (08:16)
[2020-10-12] MEDS: Benzonatate 100 MG CAP PO SCH (08:16)
[2020-10-12] MEDS: Ferrous Sulfate 325 MG TAB PO SCH ×2 (08:17→17:22)
[2020-10-12] MEDS: Cyanocobalamin (Vitamin B-12) 1,000 MCG TAB PO SCH (08:17)
[2020-10-12] MEDS: Saccharomyces boulardii 250 MG CAP PO SCH (08:17)
[2020-10-12] MEDS: metFORMIN 500 MG TAB PO SCH ×2 (08:17→17:22)
[2020-10-12] MEDS: Fish Oil 1,000 MG CAP PO SCH (08:17)
[2020-10-12] MEDS: Calcium Carbonate 500 MG TAB PO SCH (08:17)
[2020-10-12] MEDS: Mupirocin 2% Ointment 22 GM Tube TOP SCH ×3 (08:18→20:24)
[2020-10-12] MEDS: HYDROcodone/Acetaminophen 10/325 mg Tablet PO PRN ×2 (09:30→20:25)
[2020-10-12] MEDS: traMADol HCl 50 MG TAB PO PRN (12:47)
[2020-10-12] MEDS ORDERED: Polyethylene Glycol 3350 17 GM Packet PO PRN (13:30)
[2020-10-12] MEDS ORDERED: Senokot S 8.6-50 MG TAB PO PRN (13:30)
[2020-10-12] MEDS: Cefepime 1 GM in Sodium Chloride 0.9% 100 ML IVPB SCH (17:23)
[2020-10-12] MEDS: Lisinopril 20 MG TAB PO SCH (20:22)
[2020-10-12] MEDS: Tamsulosin HCl 0.4 MG CAP PO SCH (20:25)
[2020-10-12] MEDS: Melatonin 3 MG TAB PO PRN (20:25)
[2020-10-12 20:27] LABS: Vancomycin, Trough 13.6 ug/mL
[2020-10-12] MEDS: Vancomycin HCl 750 MG in Sodium Chloride 0.9% 250 ML 250 ML IVPB SCH (21:52)
[2020-10-13] MEDS: HYDROcodone/Acetaminophen 10/325 mg Tablet PO PRN ×3 (07:55→21:07)
[2020-10-13] MEDS: Finasteride 5 MG TAB PO SCH (08:04)
[2020-10-13] MEDS: Saccharomyces boulardii 250 MG CAP PO SCH (08:04)
[2020-10-13] MEDS: Cyanocobalamin (Vitamin B-12) 1,000 MCG TAB PO SCH (08:04)
[2020-10-13] MEDS: Ferrous Sulfate 325 MG TAB PO SCH ×2 (08:04→17:31)
[2020-10-13] MEDS: Fish Oil 1,000 MG CAP PO SCH (08:04)
[2020-10-13] MEDS: Calcium Carbonate 500 MG TAB PO SCH (08:05)
[2020-10-13] MEDS: Aspirin 81 mg Enteric Coated Tablet PO SCH ×2 (08:05→20:22)
[2020-10-13] MEDS: metFORMIN 500 MG TAB PO SCH ×2 (08:05→17:31)
[2020-10-13] MEDS: Amlodipine 5 MG TAB PO SCH (08:05)
[2020-10-13] MEDS: Latanoprost 0.005% Ophth Soln 2.5 ml Bottle EA EYE SCH (08:06)
[2020-10-13] MEDS: Metoprolol Tartrate 50 MG TAB PO SCH ×2 (08:06→20:22)
[2020-10-13] MEDS: Brimonidine Tartrate 0.2% Ophth Soln 5 ml Bottle R EYE SCH ×3 (08:06→20:23)
[2020-10-13] MEDS: HumaLOG 300 UNITS/3 ML VIAL SC PRN ×2 (08:13→17:33)
[2020-10-13] MEDS: Mupirocin 2% Ointment 22 GM Tube TOP SCH ×3 (08:15→20:23)
[2020-10-13] MEDS: Acetaminophen 325 MG TAB PO PRN (11:16)
[2020-10-13] MEDS: Cefepime 1 GM in Sodium Chloride 0.9% 100 ML IVPB SCH (17:31)
[2020-10-13] MEDS: Tamsulosin HCl 0.4 MG CAP PO SCH (20:22)
[2020-10-13] MEDS: Vancomycin HCl 750 MG in Sodium Chloride 0.9% 250 ML 250 ML IVPB SCH (20:22)
[2020-10-13] MEDS: Lisinopril 20 MG TAB PO SCH (20:22)
[2020-10-13] MEDS ORDERED: Vancomycin HCl 750 MG VIAL ONE (20:28)
[2020-10-13] MEDS: Melatonin 3 MG TAB PO PRN (21:07)
[2020-10-13] MEDS: Gabapentin 300 MG CAP PO PRN (21:08)
[2020-10-14] MEDS: HYDROcodone/Acetaminophen 10/325 mg Tablet PO PRN ×2 (08:59→21:17)
[2020-10-14] MEDS: Ferrous Sulfate 325 MG TAB PO SCH ×2 (08:59→17:25)
[2020-10-14] MEDS: Metoprolol Tartrate 50 MG TAB PO SCH ×2 (08:59→21:21)
[2020-10-14] MEDS: Cyanocobalamin (Vitamin B-12) 1,000 MCG TAB PO SCH (08:59)
[2020-10-14] MEDS: Saccharomyces boulardii 250 MG CAP PO SCH (09:00)
[2020-10-14] MEDS: Amlodipine 5 MG TAB PO SCH (09:00)
[2020-10-14] MEDS: Calcium Carbonate 500 MG TAB PO SCH (09:00)
[2020-10-14] MEDS: Aspirin 81 mg Enteric Coated Tablet PO SCH ×2 (09:01→21:19)
[2020-10-14] MEDS: metFORMIN 500 MG TAB PO SCH ×2 (09:01→17:25)
[2020-10-14] MEDS: Finasteride 5 MG TAB PO SCH (09:01)
[2020-10-14] MEDS: Fish Oil 1,000 MG CAP PO SCH (09:01)
[2020-10-14] MEDS: Brimonidine Tartrate 0.2% Ophth Soln 5 ml Bottle R EYE SCH ×3 (09:01→21:20)
[2020-10-14] MEDS: Latanoprost 0.005% Ophth Soln 2.5 ml Bottle EA EYE SCH (09:01)
[2020-10-14] MEDS: HumaLOG 300 UNITS/3 ML VIAL SC PRN ×2 (09:07→17:32)
[2020-10-14] MEDS: Mupirocin 2% Ointment 22 GM Tube TOP SCH ×3 (09:09→21:21)
[2020-10-14] MEDS ORDERED: diphenhydrAMINE 25 MG CAP PO PRN (13:38)
[2020-10-14] MEDS: Cefepime 1 GM in Sodium Chloride 0.9% 100 ML IVPB SCH (17:23)
[2020-10-14 20:46] LABS: Vancomycin, Trough 13.6 ug/mL
[2020-10-14] MEDS ORDERED: Triamcinolone 40 MG/ML VIAL TOP SCH (21:00)
[2020-10-14] MEDS ORDERED: Keri Lotion 15 oz BOT TOP SCH (21:00)
[2020-10-14] MEDS: Lisinopril 20 MG TAB PO SCH (21:19)
[2020-10-14] MEDS: Emollient 15 oz bottle 450 ML, Triamcinolone Acetonide 200 MG TOP SCH (21:19)
[2020-10-14] MEDS: Vancomycin HCl 1 GM in Sodium Chloride 0.9% 250 ML 250 ML IVPB SCH (21:21)
[2020-10-14] MEDS: Tamsulosin HCl 0.4 MG CAP PO SCH (21:21)
[2020-10-14] MEDS: Vancomycin HCl 750 MG in Sodium Chloride 0.9% 250 ML 250 ML IVPB SCH (21:27)
[2020-10-15] MEDS: HYDROcodone/Acetaminophen 10/325 mg Tablet PO PRN ×3 (09:09→21:13)
[2020-10-15] MEDS: Ferrous Sulfate 325 MG TAB PO SCH ×2 (09:10→17:43)
[2020-10-15] MEDS: Calcium Carbonate 500 MG TAB PO SCH (09:11)
[2020-10-15] MEDS: Cyanocobalamin (Vitamin B-12) 1,000 MCG TAB PO SCH (09:11)
[2020-10-15] MEDS: metFORMIN 500 MG TAB PO SCH ×2 (09:11→17:43)
[2020-10-15] MEDS: Metoprolol Tartrate 50 MG TAB PO SCH ×2 (09:11→21:14)
[2020-10-15] MEDS: Amlodipine 5 MG TAB PO SCH (09:11)
[2020-10-15] MEDS: Fish Oil 1,000 MG CAP PO SCH (09:11)
[2020-10-15] MEDS: Saccharomyces boulardii 250 MG CAP PO SCH (09:11)
[2020-10-15] MEDS: Finasteride 5 MG TAB PO SCH (09:11)
[2020-10-15] MEDS: Emollient 15 oz bottle 450 ML, Triamcinolone Acetonide 200 MG TOP SCH ×2 (09:12→21:26)
[2020-10-15] MEDS: Aspirin 81 mg Enteric Coated Tablet PO SCH ×2 (09:12→21:14)
[2020-10-15] MEDS: Brimonidine Tartrate 0.2% Ophth Soln 5 ml Bottle R EYE SCH ×3 (09:13→21:17)
[2020-10-15] MEDS: Latanoprost 0.005% Ophth Soln 2.5 ml Bottle EA EYE SCH (09:13)
[2020-10-15] MEDS: Mupirocin 2% Ointment 22 GM Tube TOP SCH ×3 (09:14→21:27)
[2020-10-15] MEDS: HumaLOG 300 UNITS/3 ML VIAL SC PRN ×2 (09:14→12:19)
[2020-10-15] MEDS: Acetaminophen 325 MG TAB PO PRN (12:27)
[2020-10-15] MEDS ORDERED: predniSONE 20 MG TAB PO SCH ×3 (17:15→18:30)
[2020-10-15] MEDS: Tamsulosin HCl 0.4 MG CAP PO SCH (21:15)
[2020-10-15] MEDS: Lisinopril 20 MG TAB PO SCH (21:16)
[2020-10-15] MEDS: Vancomycin HCl 1 GM in Sodium Chloride 0.9% 250 ML 250 ML IVPB SCH (21:18)
[2020-10-16 06:15] LABS: Anion Gap 15 mmol/L (10-20); BUN (Urea Nitrogen) 24 mg/dL (8.4-25.7); CRP (Inflammatory) 6.33 mg/dL (= or < 0.5); Calc. Creatinine Clearance 69 mL/min (70-130); Calcium 8.7 mg/dL (7.8-10.44); Carbon Dioxide 21 mmol/L (23-31); Chloride 102 mmol/L (98-107); Glucose 261 mg/dL (83-110); Sodium 132 mmol/L (136-145)
[2020-10-16 06:48] LABS: Hemoglobin 9.9 g/dL (14.0-18.0); Hypochromia SLIGHT = 6-15 cells (100X) (0-5/hpf); Lymphocytes 10 % (21-51); MDiff Complete? YES; Mean Corpuscular Hemoglobin 28.6 pg (27.0-31.0); Mean Platelet Volume 6.7 fL (7.4-10.4); Monocytes 3 % (0-10); Neutrophil 87 % (42-75); Platelet Count 318 thou/uL (130-400); Platelet Morphology Comment Appears Adequate; Red Blood Cell (RBC) Count 3.48 mill/uL (4.70-6.10); White Blood Cell (WBC) Count 4.7 thou/uL (4.8-10.8)
[2020-10-16] MEDS ORDERED: predniSONE 20 MG TAB PO SCH (08:00)
[2020-10-16] MEDS: Aspirin 81 mg Enteric Coated Tablet PO SCH ×2 (08:46→21:18)
[2020-10-16] MEDS: Metoprolol Tartrate 50 MG TAB PO SCH ×2 (08:46→21:18)
[2020-10-16] MEDS: Saccharomyces boulardii 250 MG CAP PO SCH (08:46)
[2020-10-16] MEDS: Finasteride 5 MG TAB PO SCH (08:46)
[2020-10-16] MEDS: Ferrous Sulfate 325 MG TAB PO SCH ×2 (08:46→17:17)
[2020-10-16] MEDS: Fish Oil 1,000 MG CAP PO SCH (08:47)
[2020-10-16] MEDS: Calcium Carbonate 500 MG TAB PO SCH (08:48)
[2020-10-16] MEDS: Cyanocobalamin (Vitamin B-12) 1,000 MCG TAB PO SCH (08:48)
[2020-10-16] MEDS: metFORMIN 500 MG TAB PO SCH ×2 (08:48→17:17)
[2020-10-16] MEDS: Amlodipine 5 MG TAB PO SCH (08:48)
[2020-10-16] MEDS: Mupirocin 2% Ointment 22 GM Tube TOP SCH ×3 (08:51→21:30)
[2020-10-16] MEDS: Latanoprost 0.005% Ophth Soln 2.5 ml Bottle EA EYE SCH (08:52)
[2020-10-16] MEDS: Brimonidine Tartrate 0.2% Ophth Soln 5 ml Bottle R EYE SCH ×3 (08:58→21:30)
[2020-10-16] MEDS: Emollient 15 oz bottle 450 ML, Triamcinolone Acetonide 200 MG TOP SCH ×2 (08:59→21:20)
[2020-10-16] MEDS: HumaLOG 300 UNITS/3 ML VIAL SC PRN ×4 (09:19→21:30)
[2020-10-16 14:22] LABS: Anion Gap 17 mmol/L (10-20); BUN (Urea Nitrogen) 29 mg/dL (8.4-25.7); Calc. Creatinine Clearance 71 mL/min (70-130); Calcium 8.8 mg/dL (7.8-10.44); Carbon Dioxide 21 mmol/L (23-31); Chloride 101 mmol/L (98-107); Glucose 195 mg/dL (83-110); Potassium 5.5 mmol/L (3.5-5.1); Sodium 133 mmol/L (136-145)
[2020-10-16] MEDS: HYDROcodone/Acetaminophen 10/325 mg Tablet PO PRN ×2 (15:42→22:24)
[2020-10-16] MEDS: Tamsulosin HCl 0.4 MG CAP PO SCH (21:18)
[2020-10-16 22:22] LABS: Vancomycin, Trough 14.2 ug/mL
[2020-10-16] MEDS: Vancomycin HCl 1 GM in Sodium Chloride 0.9% 250 ML 250 ML IVPB SCH (22:50)
[2020-10-17 07:15] LABS: Anion Gap 16 mmol/L (10-20); BUN (Urea Nitrogen) 31 mg/dL (8.4-25.7); Calc. Creatinine Clearance 70 mL/min (70-130); Calcium 8.5 mg/dL (7.8-10.44); Carbon Dioxide 22 mmol/L (23-31); Chloride 104 mmol/L (98-107); Glucose 170 mg/dL (83-110); Potassium 4.8 mmol/L (3.5-5.1); Sodium 137 mmol/L (136-145)
[2020-10-17] MEDS: HumaLOG 300 UNITS/3 ML VIAL SC PRN ×2 (08:57→17:31)
[2020-10-17] MEDS: Fish Oil 1,000 MG CAP PO SCH (08:58)
[2020-10-17] MEDS: metFORMIN 500 MG TAB PO SCH ×2 (08:58→17:05)
[2020-10-17] MEDS: Amlodipine 5 MG TAB PO SCH (08:58)
[2020-10-17] MEDS: Metoprolol Tartrate 50 MG TAB PO SCH ×2 (08:58→21:53)
[2020-10-17] MEDS: Saccharomyces boulardii 250 MG CAP PO SCH (08:58)
[2020-10-17] MEDS: Calcium Carbonate 500 MG TAB PO SCH (08:58)
[2020-10-17] MEDS: Finasteride 5 MG TAB PO SCH (08:58)
[2020-10-17] MEDS: Aspirin 81 mg Enteric Coated Tablet PO SCH ×2 (08:58→21:52)
[2020-10-17] MEDS: Latanoprost 0.005% Ophth Soln 2.5 ml Bottle EA EYE SCH (08:59)
[2020-10-17] MEDS: Ferrous Sulfate 325 MG TAB PO SCH ×2 (08:59→17:05)
[2020-10-17] MEDS: Cyanocobalamin (Vitamin B-12) 1,000 MCG TAB PO SCH (08:59)
[2020-10-17] MEDS: Brimonidine Tartrate 0.2% Ophth Soln 5 ml Bottle R EYE SCH ×3 (08:59→21:52)
[2020-10-17] MEDS: Mupirocin 2% Ointment 22 GM Tube TOP SCH ×3 (09:00→21:53)
[2020-10-17] MEDS: Emollient 15 oz bottle 450 ML, Triamcinolone Acetonide 200 MG TOP SCH ×2 (09:00→21:57)
[2020-10-17] MEDS: HYDROcodone/Acetaminophen 10/325 mg Tablet PO PRN ×3 (09:21→23:42)
[2020-10-17] MEDS: Tamsulosin HCl 0.4 MG CAP PO SCH (21:53)
[2020-10-17] MEDS: Vancomycin HCl 750 MG in Sodium Chloride 0.9% 250 ML 250 ML IVPB SCH (21:54)
[2020-10-17] MEDS: Vancomycin HCl 500 MG in Sodium Chloride 0.9% 100 ML IVPB SCH (23:37)
[2020-10-18] MEDS: Fish Oil 1,000 MG CAP PO SCH (08:17)
[2020-10-18] MEDS: Metoprolol Tartrate 50 MG TAB PO SCH ×2 (08:17→21:35)
[2020-10-18] MEDS: metFORMIN 500 MG TAB PO SCH ×2 (08:18→17:09)
[2020-10-18] MEDS: Ferrous Sulfate 325 MG TAB PO SCH ×2 (08:18→17:09)
[2020-10-18] MEDS: Calcium Carbonate 500 MG TAB PO SCH (08:18)
[2020-10-18] MEDS: Amlodipine 5 MG TAB PO SCH (08:18)
[2020-10-18] MEDS: Aspirin 81 mg Enteric Coated Tablet PO SCH ×2 (08:18→21:35)
[2020-10-18] MEDS: Finasteride 5 MG TAB PO SCH (08:18)
[2020-10-18] MEDS: Saccharomyces boulardii 250 MG CAP PO SCH (08:18)
[2020-10-18] MEDS: Cyanocobalamin (Vitamin B-12) 1,000 MCG TAB PO SCH (08:18)
[2020-10-18] MEDS: Latanoprost 0.005% Ophth Soln 2.5 ml Bottle EA EYE SCH (08:19)
[2020-10-18] MEDS: Brimonidine Tartrate 0.2% Ophth Soln 5 ml Bottle R EYE SCH ×3 (08:19→21:35)
[2020-10-18] MEDS: HumaLOG 300 UNITS/3 ML VIAL SC PRN ×2 (08:19→17:10)
[2020-10-18] MEDS: Mupirocin 2% Ointment 22 GM Tube TOP SCH ×3 (08:28→21:36)
[2020-10-18] MEDS: Emollient 15 oz bottle 450 ML, Triamcinolone Acetonide 200 MG TOP SCH ×2 (08:28→21:37)
[2020-10-18] MEDS: HYDROcodone/Acetaminophen 10/325 mg Tablet PO PRN ×2 (14:27→22:40)
[2020-10-18] MEDS: Vancomycin HCl 750 MG in Sodium Chloride 0.9% 250 ML 250 ML IVPB SCH (21:35)
[2020-10-18] MEDS: Tamsulosin HCl 0.4 MG CAP PO SCH (21:35)
[2020-10-18] MEDS: Vancomycin HCl 500 MG in Sodium Chloride 0.9% 100 ML IVPB SCH (23:09)
[2020-10-19] MEDS: HYDROcodone/Acetaminophen 10/325 mg Tablet PO PRN ×3 (06:18→23:22)
[2020-10-19] MEDS: HumaLOG 300 UNITS/3 ML VIAL SC PRN ×3 (08:03→17:02)
[2020-10-19] MEDS: Latanoprost 0.005% Ophth Soln 2.5 ml Bottle EA EYE SCH (08:04)
[2020-10-19] MEDS: Aspirin 81 mg Enteric Coated Tablet PO SCH (08:05)
[2020-10-19] MEDS: Calcium Carbonate 500 MG TAB PO SCH (08:05)
[2020-10-19] MEDS: Fish Oil 1,000 MG CAP PO SCH (08:05)
[2020-10-19] MEDS: Cyanocobalamin (Vitamin B-12) 1,000 MCG TAB PO SCH (08:05)
[2020-10-19] MEDS: Saccharomyces boulardii 250 MG CAP PO SCH (08:05)
[2020-10-19] MEDS: Amlodipine 5 MG TAB PO SCH (08:06)
[2020-10-19] MEDS: Metoprolol Tartrate 50 MG TAB PO SCH ×2 (08:06→20:09)
[2020-10-19] MEDS: Ferrous Sulfate 325 MG TAB PO SCH ×2 (08:06→17:03)
[2020-10-19] MEDS: Finasteride 5 MG TAB PO SCH (08:06)
[2020-10-19] MEDS: metFORMIN 500 MG TAB PO SCH ×2 (08:07→17:03)
[2020-10-19] MEDS: Mupirocin 2% Ointment 22 GM Tube TOP SCH ×4 (08:07→20:10)
[2020-10-19] MEDS: Emollient 15 oz bottle 450 ML, Triamcinolone Acetonide 200 MG TOP SCH ×2 (08:10→20:11)
[2020-10-19] MEDS: Brimonidine Tartrate 0.2% Ophth Soln 5 ml Bottle R EYE SCH ×3 (08:12→20:09)
[2020-10-19] MEDS: Aspirin Chewable 81 MG TAB PO SCH (20:09)
[2020-10-19] MEDS: Tamsulosin HCl 0.4 MG CAP PO SCH (20:09)
[2020-10-19] MEDS: Vancomycin HCl 750 MG in Sodium Chloride 0.9% 250 ML 250 ML IVPB SCH (22:21)
[2020-10-19] MEDS: Vancomycin HCl 500 MG in Sodium Chloride 0.9% 100 ML IVPB SCH (22:21)
[2020-10-20] MEDS: HYDROcodone/Acetaminophen 10/325 mg Tablet PO PRN ×3 (05:27→21:31)
[2020-10-20] MEDS: Saccharomyces boulardii 250 MG CAP PO SCH (08:21)
[2020-10-20] MEDS: Amlodipine 5 MG TAB PO SCH (08:21)
[2020-10-20] MEDS: Aspirin Chewable 81 MG TAB PO SCH ×2 (08:22→21:17)
[2020-10-20] MEDS: Fish Oil 1,000 MG CAP PO SCH (08:22)
[2020-10-20] MEDS: Metoprolol Tartrate 50 MG TAB PO SCH ×2 (08:22→21:30)
[2020-10-20] MEDS: Ferrous Sulfate 325 MG TAB PO SCH ×2 (08:22→17:09)
[2020-10-20] MEDS: Cyanocobalamin (Vitamin B-12) 1,000 MCG TAB PO SCH (08:22)
[2020-10-20] MEDS: metFORMIN 500 MG TAB PO SCH ×2 (08:22→17:09)
[2020-10-20] MEDS: Finasteride 5 MG TAB PO SCH (08:22)
[2020-10-20] MEDS: Calcium Carbonate 500 MG TAB PO SCH (08:22)
[2020-10-20] MEDS: Latanoprost 0.005% Ophth Soln 2.5 ml Bottle EA EYE SCH (08:23)
[2020-10-20] MEDS: HumaLOG 300 UNITS/3 ML VIAL SC PRN ×2 (08:23→17:11)
[2020-10-20] MEDS: Brimonidine Tartrate 0.2% Ophth Soln 5 ml Bottle R EYE SCH ×3 (08:23→21:18)
[2020-10-20] MEDS: Emollient 15 oz bottle 450 ML, Triamcinolone Acetonide 200 MG TOP SCH ×2 (08:27→21:19)
[2020-10-20] MEDS: Tamsulosin HCl 0.4 MG CAP PO SCH (21:17)
[2020-10-20] MEDS: Vancomycin HCl 500 MG in Sodium Chloride 0.9% 100 ML IVPB SCH (22:22)
[2020-10-20] MEDS: Vancomycin HCl 750 MG in Sodium Chloride 0.9% 250 ML 250 ML IVPB SCH (22:24)
[2020-10-21] MEDS: HYDROcodone/Acetaminophen 10/325 mg Tablet PO PRN ×3 (06:27→20:30)
[2020-10-21] MEDS: Fish Oil 1,000 MG CAP PO SCH (08:01)
[2020-10-21] MEDS: Amlodipine 5 MG TAB PO SCH (08:01)
[2020-10-21] MEDS: Cyanocobalamin (Vitamin B-12) 1,000 MCG TAB PO SCH (08:02)
[2020-10-21] MEDS: metFORMIN 500 MG TAB PO SCH ×2 (08:02→16:31)
[2020-10-21] MEDS: Calcium Carbonate 500 MG TAB PO SCH (08:02)
[2020-10-21] MEDS: Saccharomyces boulardii 250 MG CAP PO SCH (08:02)
[2020-10-21] MEDS: Aspirin Chewable 81 MG TAB PO SCH ×2 (08:02→20:20)
[2020-10-21] MEDS: Ferrous Sulfate 325 MG TAB PO SCH ×2 (08:02→16:31)
[2020-10-21] MEDS: Finasteride 5 MG TAB PO SCH (08:02)
[2020-10-21] MEDS: Metoprolol Tartrate 50 MG TAB PO SCH ×2 (08:02→20:20)
[2020-10-21] MEDS: Brimonidine Tartrate 0.2% Ophth Soln 5 ml Bottle R EYE SCH ×3 (08:04→20:21)
[2020-10-21] MEDS: Latanoprost 0.005% Ophth Soln 2.5 ml Bottle EA EYE SCH (08:04)
[2020-10-21] MEDS: Emollient 15 oz bottle 450 ML, Triamcinolone Acetonide 200 MG TOP SCH ×2 (08:05→20:27)
[2020-10-21] MEDS: HumaLOG 300 UNITS/3 ML VIAL SC PRN ×2 (08:08→17:29)
[2020-10-21] MEDS: Acetaminophen 325 MG TAB PO PRN (18:05)
[2020-10-21] MEDS: Tamsulosin HCl 0.4 MG CAP PO SCH (20:20)
[2020-10-21] MEDS: Vancomycin HCl 500 MG in Sodium Chloride 0.9% 100 ML IVPB SCH (22:14)
[2020-10-21] MEDS: Vancomycin HCl 750 MG in Sodium Chloride 0.9% 250 ML 250 ML IVPB SCH (22:15)
[2020-10-22] MEDS: Ferrous Sulfate 325 MG TAB PO SCH ×2 (08:55→17:05)
[2020-10-22] MEDS: metFORMIN 500 MG TAB PO SCH ×2 (08:55→17:06)
[2020-10-22] MEDS: Amlodipine 5 MG TAB PO SCH (08:55)
[2020-10-22] MEDS: Finasteride 5 MG TAB PO SCH (08:56)
[2020-10-22] MEDS: Saccharomyces boulardii 250 MG CAP PO SCH (08:56)
[2020-10-22] MEDS: Fish Oil 1,000 MG CAP PO SCH (08:56)
[2020-10-22] MEDS: Calcium Carbonate 500 MG TAB PO SCH (08:56)
[2020-10-22] MEDS: Metoprolol Tartrate 50 MG TAB PO SCH ×2 (08:56→20:22)
[2020-10-22] MEDS: Aspirin Chewable 81 MG TAB PO SCH ×2 (08:56→20:22)
[2020-10-22] MEDS: Cyanocobalamin (Vitamin B-12) 1,000 MCG TAB PO SCH (08:56)
[2020-10-22] MEDS: Brimonidine Tartrate 0.2% Ophth Soln 5 ml Bottle R EYE SCH ×3 (08:57→20:22)
[2020-10-22] MEDS: Latanoprost 0.005% Ophth Soln 2.5 ml Bottle EA EYE SCH (08:57)
[2020-10-22] MEDS: Emollient 15 oz bottle 450 ML, Triamcinolone Acetonide 200 MG TOP SCH ×2 (08:59→20:25)
[2020-10-22] MEDS: HumaLOG 300 UNITS/3 ML VIAL SC PRN ×3 (09:03→21:20)
[2020-10-22] MEDS: HYDROcodone/Acetaminophen 10/325 mg Tablet PO PRN (19:17)
[2020-10-22] MEDS: Tamsulosin HCl 0.4 MG CAP PO SCH (20:21)
[2020-10-22] MEDS: Vancomycin HCl 750 MG in Sodium Chloride 0.9% 250 ML 250 ML IVPB SCH (21:20)
[2020-10-22] MEDS: Vancomycin HCl 500 MG in Sodium Chloride 0.9% 100 ML IVPB SCH (21:21)
[2020-10-23] MEDS: HYDROcodone/Acetaminophen 10/325 mg Tablet PO PRN ×4 (01:04→21:59)
[2020-10-23] MEDS: Cyanocobalamin (Vitamin B-12) 1,000 MCG TAB PO SCH (09:12)
[2020-10-23] MEDS: metFORMIN 500 MG TAB PO SCH ×2 (09:12→17:09)
[2020-10-23] MEDS: Ferrous Sulfate 325 MG TAB PO SCH ×2 (09:12→17:09)
[2020-10-23] MEDS: Amlodipine 5 MG TAB PO SCH (09:12)
[2020-10-23] MEDS: Finasteride 5 MG TAB PO SCH (09:12)
[2020-10-23] MEDS: Saccharomyces boulardii 250 MG CAP PO SCH (09:12)
[2020-10-23] MEDS: Fish Oil 1,000 MG CAP PO SCH (09:12)
[2020-10-23] MEDS: Aspirin Chewable 81 MG TAB PO SCH ×2 (09:12→20:06)
[2020-10-23] MEDS: Metoprolol Tartrate 50 MG TAB PO SCH ×2 (09:13→20:07)
[2020-10-23] MEDS: Latanoprost 0.005% Ophth Soln 2.5 ml Bottle EA EYE SCH (09:13)
[2020-10-23] MEDS: Calcium Carbonate 500 MG TAB PO SCH (09:13)
[2020-10-23] MEDS: Brimonidine Tartrate 0.2% Ophth Soln 5 ml Bottle R EYE SCH ×3 (09:13→20:06)
[2020-10-23] MEDS: Emollient 15 oz bottle 450 ML, Triamcinolone Acetonide 200 MG TOP SCH ×2 (09:14→20:07)
[2020-10-23] MEDS: HumaLOG 300 UNITS/3 ML VIAL SC PRN (12:10)
[2020-10-23] MEDS: Tamsulosin HCl 0.4 MG CAP PO SCH (20:07)
[2020-10-23 20:53] LABS: Vancomycin, Trough 15.1 ug/mL
[2020-10-23] MEDS: Vancomycin HCl 750 MG in Sodium Chloride 0.9% 250 ML 250 ML IVPB SCH (21:58)
[2020-10-23] MEDS: Vancomycin HCl 500 MG in Sodium Chloride 0.9% 100 ML IVPB SCH (21:59)
[2020-10-24] MEDS: HYDROcodone/Acetaminophen 10/325 mg Tablet PO PRN ×2 (04:33→20:25)
[2020-10-24 05:42] LABS: Anion Gap 13 mmol/L (10-20); BUN (Urea Nitrogen) 23 mg/dL (8.4-25.7); CRP (Inflammatory) 3.55 mg/dL (= or < 0.5); Calc. Creatinine Clearance 61 mL/min (70-130); Calcium 8.3 mg/dL (7.8-10.44); Carbon Dioxide 23 mmol/L (23-31); Chloride 105 mmol/L (98-107); Glucose 151 mg/dL (83-110); Potassium 4.4 mmol/L (3.5-5.1); Sodium 137 mmol/L (136-145)
[2020-10-24] MEDS: Brimonidine Tartrate 0.2% Ophth Soln 5 ml Bottle R EYE SCH ×3 (09:09→20:26)
[2020-10-24] MEDS: Amlodipine 5 MG TAB PO SCH (09:10)
[2020-10-24] MEDS: metFORMIN 500 MG TAB PO SCH ×2 (09:10→17:02)
[2020-10-24] MEDS: Aspirin Chewable 81 MG TAB PO SCH ×2 (09:10→20:26)
[2020-10-24] MEDS: Ferrous Sulfate 325 MG TAB PO SCH ×2 (09:10→17:02)
[2020-10-24] MEDS: Latanoprost 0.005% Ophth Soln 2.5 ml Bottle EA EYE SCH (09:11)
[2020-10-24] MEDS: Calcium Carbonate 500 MG TAB PO SCH (09:11)
[2020-10-24] MEDS: Saccharomyces boulardii 250 MG CAP PO SCH (09:11)
[2020-10-24] MEDS: Finasteride 5 MG TAB PO SCH (09:11)
[2020-10-24] MEDS: Fish Oil 1,000 MG CAP PO SCH (09:11)
[2020-10-24] MEDS: Emollient 15 oz bottle 450 ML, Triamcinolone Acetonide 200 MG TOP SCH ×2 (09:11→20:27)
[2020-10-24] MEDS: Cyanocobalamin (Vitamin B-12) 1,000 MCG TAB PO SCH (09:11)
[2020-10-24] MEDS: Metoprolol Tartrate 50 MG TAB PO SCH ×2 (09:11→20:25)
[2020-10-24] MEDS: HumaLOG 300 UNITS/3 ML VIAL SC PRN ×2 (12:51→21:51)
[2020-10-24] MEDS: Tamsulosin HCl 0.4 MG CAP PO SCH (20:25)
[2020-10-24] MEDS: Vancomycin HCl 500 MG in Sodium Chloride 0.9% 100 ML IVPB SCH (21:49)
[2020-10-24] MEDS: Vancomycin HCl 750 MG in Sodium Chloride 0.9% 250 ML 250 ML IVPB SCH (21:50)
[2020-10-25] MEDS: Acetaminophen 325 MG TAB PO PRN (01:47)
[2020-10-25] MEDS: HYDROcodone/Acetaminophen 10/325 mg Tablet PO PRN ×4 (02:45→21:00)
[2020-10-25] MEDS: Saccharomyces boulardii 250 MG CAP PO SCH (09:23)
[2020-10-25] MEDS: Cyanocobalamin (Vitamin B-12) 1,000 MCG TAB PO SCH (09:23)
[2020-10-25] MEDS: Fish Oil 1,000 MG CAP PO SCH (09:23)
[2020-10-25] MEDS: metFORMIN 500 MG TAB PO SCH ×2 (09:23→16:44)
[2020-10-25] MEDS: Ferrous Sulfate 325 MG TAB PO SCH ×2 (09:23→16:44)
[2020-10-25] MEDS: Aspirin Chewable 81 MG TAB PO SCH ×2 (09:23→21:02)
[2020-10-25] MEDS: Finasteride 5 MG TAB PO SCH (09:23)
[2020-10-25] MEDS: Calcium Carbonate 500 MG TAB PO SCH (09:23)
[2020-10-25] MEDS: Metoprolol Tartrate 50 MG TAB PO SCH ×2 (09:23→21:01)
[2020-10-25] MEDS: Brimonidine Tartrate 0.2% Ophth Soln 5 ml Bottle R EYE SCH ×3 (09:24→21:11)
[2020-10-25] MEDS: Amlodipine 5 MG TAB PO SCH (09:24)
[2020-10-25] MEDS: HumaLOG 300 UNITS/3 ML VIAL SC PRN (09:25)
[2020-10-25] MEDS: Latanoprost 0.005% Ophth Soln 2.5 ml Bottle EA EYE SCH (09:30)
[2020-10-25] MEDS: Emollient 15 oz bottle 450 ML, Triamcinolone Acetonide 200 MG TOP SCH ×2 (09:31→21:11)
[2020-10-25] MEDS: Tamsulosin HCl 0.4 MG CAP PO SCH (21:00)
[2020-10-25] MEDS: Vancomycin HCl 750 MG in Sodium Chloride 0.9% 250 ML 250 ML IVPB SCH (21:04)
[2020-10-26] MEDS: Vancomycin HCl 500 MG in Sodium Chloride 0.9% 100 ML IVPB SCH ×2 (00:20→21:23)
[2020-10-26] MEDS: HYDROcodone/Acetaminophen 10/325 mg Tablet PO PRN ×3 (06:48→19:36)
[2020-10-26] MEDS: Aspirin Chewable 81 MG TAB PO SCH ×2 (08:01→21:20)
[2020-10-26] MEDS: Amlodipine 5 MG TAB PO SCH (08:01)
[2020-10-26] MEDS: metFORMIN 500 MG TAB PO SCH ×2 (08:01→17:28)
[2020-10-26] MEDS: Fish Oil 1,000 MG CAP PO SCH (08:01)
[2020-10-26] MEDS: Finasteride 5 MG TAB PO SCH (08:01)
[2020-10-26] MEDS: Ferrous Sulfate 325 MG TAB PO SCH ×2 (08:02→17:28)
[2020-10-26] MEDS: Cyanocobalamin (Vitamin B-12) 1,000 MCG TAB PO SCH (08:02)
[2020-10-26] MEDS: Metoprolol Tartrate 50 MG TAB PO SCH ×2 (08:02→21:32)
[2020-10-26] MEDS: Brimonidine Tartrate 0.2% Ophth Soln 5 ml Bottle R EYE SCH ×3 (08:02→21:21)
[2020-10-26] MEDS: Calcium Carbonate 500 MG TAB PO SCH (08:02)
[2020-10-26] MEDS: Saccharomyces boulardii 250 MG CAP PO SCH (08:02)
[2020-10-26] MEDS: HumaLOG 300 UNITS/3 ML VIAL SC PRN ×2 (08:03→17:28)
[2020-10-26] MEDS: Latanoprost 0.005% Ophth Soln 2.5 ml Bottle EA EYE SCH (08:03)
[2020-10-26] MEDS: Emollient 15 oz bottle 450 ML, Triamcinolone Acetonide 200 MG TOP SCH ×2 (08:04→21:24)
[2020-10-26 10:57] VITALS: BMI 30.2
[2020-10-26] MEDS: Tamsulosin HCl 0.4 MG CAP PO SCH (21:22)
[2020-10-26] MEDS: Vancomycin HCl 750 MG in Sodium Chloride 0.9% 250 ML 250 ML IVPB SCH (21:23)
[2020-10-27] MEDS: HYDROcodone/Acetaminophen 10/325 mg Tablet PO PRN ×4 (05:53→23:55)
[2020-10-27] MEDS: Saccharomyces boulardii 250 MG CAP PO SCH (08:04)
[2020-10-27] MEDS: Fish Oil 1,000 MG CAP PO SCH (08:04)
[2020-10-27] MEDS: metFORMIN 500 MG TAB PO SCH ×2 (08:04→17:15)
[2020-10-27] MEDS: Metoprolol Tartrate 50 MG TAB PO SCH ×2 (08:04→20:11)
[2020-10-27] MEDS: Ferrous Sulfate 325 MG TAB PO SCH ×2 (08:04→17:14)
[2020-10-27] MEDS: Aspirin Chewable 81 MG TAB PO SCH ×2 (08:04→20:11)
[2020-10-27] MEDS: Calcium Carbonate 500 MG TAB PO SCH (08:04)
[2020-10-27] MEDS: Amlodipine 5 MG TAB PO SCH (08:04)
[2020-10-27] MEDS: Cyanocobalamin (Vitamin B-12) 1,000 MCG TAB PO SCH (08:05)
[2020-10-27] MEDS: Finasteride 5 MG TAB PO SCH (08:05)
[2020-10-27] MEDS: Brimonidine Tartrate 0.2% Ophth Soln 5 ml Bottle R EYE SCH ×3 (08:06→20:11)
[2020-10-27] MEDS: HumaLOG 300 UNITS/3 ML VIAL SC PRN ×2 (08:06→17:15)
[2020-10-27] MEDS: Emollient 15 oz bottle 450 ML, Triamcinolone Acetonide 200 MG TOP SCH ×2 (08:07→22:12)
[2020-10-27] MEDS: Latanoprost 0.005% Ophth Soln 2.5 ml Bottle EA EYE SCH (08:07)
[2020-10-27] MEDS: Tamsulosin HCl 0.4 MG CAP PO SCH (20:11)
[2020-10-27 21:47] LABS: Vancomycin, Trough 18.7 ug/mL
[2020-10-27] MEDS: Vancomycin HCl 750 MG in Sodium Chloride 0.9% 250 ML 250 ML IVPB SCH (22:13)
[2020-10-27] MEDS: Vancomycin HCl 500 MG in Sodium Chloride 0.9% 100 ML IVPB SCH (22:14)
[2020-10-28] MEDS: HYDROcodone/Acetaminophen 10/325 mg Tablet PO PRN ×3 (05:57→18:24)
[2020-10-28] MEDS: Fish Oil 1,000 MG CAP PO SCH (08:18)
[2020-10-28] MEDS: Saccharomyces boulardii 250 MG CAP PO SCH (08:18)
[2020-10-28] MEDS: Aspirin Chewable 81 MG TAB PO SCH ×2 (08:19→20:18)
[2020-10-28] MEDS: Cyanocobalamin (Vitamin B-12) 1,000 MCG TAB PO SCH (08:19)
[2020-10-28] MEDS: Calcium Carbonate 500 MG TAB PO SCH (08:19)
[2020-10-28] MEDS: Ferrous Sulfate 325 MG TAB PO SCH ×2 (08:19→17:15)
[2020-10-28] MEDS: Amlodipine 5 MG TAB PO SCH (08:19)
[2020-10-28] MEDS: Metoprolol Tartrate 50 MG TAB PO SCH ×2 (08:20→20:18)
[2020-10-28] MEDS: Latanoprost 0.005% Ophth Soln 2.5 ml Bottle EA EYE SCH (08:20)
[2020-10-28] MEDS: Finasteride 5 MG TAB PO SCH (08:20)
[2020-10-28] MEDS: Brimonidine Tartrate 0.2% Ophth Soln 5 ml Bottle R EYE SCH ×3 (08:20→21:09)
[2020-10-28] MEDS: metFORMIN 500 MG TAB PO SCH ×2 (08:20→17:15)
[2020-10-28] MEDS: HumaLOG 300 UNITS/3 ML VIAL SC PRN ×2 (08:21→17:16)
[2020-10-28] MEDS: Emollient 15 oz bottle 450 ML, Triamcinolone Acetonide 200 MG TOP SCH ×2 (08:21→20:18)
[2020-10-28] MEDS: Tamsulosin HCl 0.4 MG CAP PO SCH (20:18)
[2020-10-28] MEDS: Vancomycin HCl 750 MG in Sodium Chloride 0.9% 250 ML 250 ML IVPB SCH (21:08)
[2020-10-28] MEDS: Vancomycin HCl 500 MG in Sodium Chloride 0.9% 100 ML IVPB SCH (22:16)
[2020-10-29] MEDS: HYDROcodone/Acetaminophen 10/325 mg Tablet PO PRN ×3 (00:36→12:01)
[2020-10-29] MEDS: Ferrous Sulfate 325 MG TAB PO SCH (08:29)
[2020-10-29] MEDS: metFORMIN 500 MG TAB PO SCH (08:29)
[2020-10-29] MEDS: Amlodipine 5 MG TAB PO SCH (08:30)
[2020-10-29] MEDS: Cyanocobalamin (Vitamin B-12) 1,000 MCG TAB PO SCH (08:30)
[2020-10-29] MEDS: Saccharomyces boulardii 250 MG CAP PO SCH (08:30)
[2020-10-29] MEDS: Fish Oil 1,000 MG CAP PO SCH (08:30)
[2020-10-29] MEDS: Calcium Carbonate 500 MG TAB PO SCH (08:30)
[2020-10-29] MEDS: Finasteride 5 MG TAB PO SCH (08:30)
[2020-10-29] MEDS: Metoprolol Tartrate 50 MG TAB PO SCH (08:30)
[2020-10-29] MEDS: Brimonidine Tartrate 0.2% Ophth Soln 5 ml Bottle R EYE SCH (08:30)
[2020-10-29] MEDS: Latanoprost 0.005% Ophth Soln 2.5 ml Bottle EA EYE SCH (08:31)
[2020-10-29] MEDS: Aspirin Chewable 81 MG TAB PO SCH (08:38)
[2020-10-29] MEDS: Emollient 15 oz bottle 450 ML, Triamcinolone Acetonide 200 MG TOP SCH (08:42)
[2020-10-29] MEDS ORDERED: Doxycycline 100 MG CAP PO SCH (09:00)
[2020-10-29 10:00] VITALS: BP 125/66; TEMP 98.1
== END 2020-10-29 14:50 | disposition home or self-care (01) | DRG 561 ==
LOC: MADMS 09-24 18:08
PROVIDERS: ADMIT Family Medicine; ATTEND Family Medicine
DX: T84.52XA Infection and inflammatory reaction due to internal left hip prosthesis, initial encounter (principal); E11.9 Type 2 diabetes mellitus without complications; N40.0 Benign prostatic hyperplasia without lower urinary tract symptoms; I10 Essential (primary) hypertension; J45.909 Unspecified asthma, uncomplicated; M10.9 Gout, unspecified; K59.00 Constipation, unspecified; R53.81 Other malaise; G89.29 Other chronic pain; M54.9 Dorsalgia, unspecified; Z20.828 Contact with and (suspected) exposure to other viral communicable diseases; R26.81 Unsteadiness on feet; E66.9 Obesity, unspecified; S30.821A Blister (nonthermal) of abdominal wall, initial encounter; S70.322A Blister (nonthermal), left thigh, initial encounter; D64.9 Anemia, unspecified; Y83.1 Surgical operation with implant of artificial internal device as the cause of abnormal reaction of the patient, or of later complication, without mention of misadventure at the time of the procedure; K21.9 Gastro-esophageal reflux disease without esophagitis; Z96.643 Presence of artificial hip joint, bilateral; E78.5 Hyperlipidemia, unspecified; Z87.891 Personal history of nicotine dependence; Z79.82 Long term (current) use of aspirin
CPT/HCPCS: 36415; 36416; 71045; 74018; 80048; 80202; 82565; 85007; 85025; 85027; 85652; 86140; 87635; J0692; J3301; J3370; J3490; J7050; J7512; Q0162; Q0163; U0003

== ENCOUNTER 2020-12-16 18:30 | Emergency (ER) | payer MEDICARE ==
[2020-12-16] MEDS ORDERED: Dextrose 50% Abboject 50 ML SYRINGE ONE ×3 (18:33→23:58)
[2020-12-16 19:06] LABS: #Basophils 0.1 thou/uL (0.0-0.2); #Eosinphils 0.6 thou/uL (0.0-0.7); #Lymphocytes 1.3 thou/uL (1.20-3.40); #Monocytes 0.8 thou/uL (0.11-0.59); #Neutrophils 10.5 thou/uL (1.40-6.50); %Basophils 0.5 % (0.0-1.0); %Eosinophils 4.6 % (0.0-10.0); %Lymphocytes 9.8 % (21.0-51.0); %Monocytes 6.1 % (0.0-10.0); Hemoglobin 9.2 g/dL (14.0-18.0); Mean Corpuscular HGB CONC 31.5 g/dL (32.0-36.0); Mean Corpuscular Hemoglobin 28.5 pg (27.0-31.0); Mean Corpuscular Volume 90.6 fL (78.0-98.0); Mean Platelet Volume 6.2 fL (7.4-10.4); Platelet Count 301 thou/uL (130-400); RBC Distribution Width 16.9 % (11.5-14.5); Red Blood Cell (RBC) Count 3.21 mill/uL (4.70-6.10); White Blood Cell (WBC) Count 13.3 thou/uL (4.8-10.8)
[2020-12-16 20:17] LABS: ALT (SGPT) 11 U/L (8-55); AST (SGOT) 16 U/L (5-34); Albumin 3.4 g/dL (3.4-4.8); Alkaline Phosphatase 82 U/L (40-110); Anion Gap 15 mmol/L (10-20); BUN (Urea Nitrogen) 26 mg/dL (8.4-25.7); Bilirubin, Total 0.2 mg/dL (0.2-1.2); Calc. Creatinine Clearance 0 mL/min (70-130); Calcium 8.9 mg/dL (7.8-10.44); Carbon Dioxide 21 mmol/L (23-31); Chloride 108 mmol/L (98-107); Globulin 2.8 g/dL (2.4-3.5); Potassium 4.6 mmol/L (3.5-5.1); Protein, Total 6.2 g/dL (5.8-8.1); Sodium 139 mmol/L (136-145)
[2020-12-16] MEDS ORDERED: Metoprolol Tartrate 50 MG TAB ONE (20:50)
[2020-12-16 21:16] LABS: Glucose 31 mg/dL (83-110)
--- NOTE | 2020-12-16 23:58 | RAD ---
Chest one view HISTORY: Altered mental status. COMPARISON: 09/29/2020. FINDINGS: Cardiac silhouette is magnified by projection. Pulmonary vasculature is unremarkable. Mediastinum is midline with aortic calcification. Linear scarring at the left lateral lung base. No evidence of pneumothorax. Old left rib fractures. Right shoulder prosthesis unchanged. IMPRESSION : No acute abnormalities are demonstrated.
[2020-12-17] MEDS ORDERED: Dextrose 5 % And 0.9 % NaCl 1,000 ML ONE (00:06)
[2020-12-17 03:13] LABS: Bilirubin Negative (Negative); Blood, Urine Trace (Negative); Clarity Clear (Clear); Glucose, Urine (Dipstick) Negative (Negative); Ketone, Urine Negative (Negative); Leukocyte Negative (Negative); Nitrite Positive (Negative); Protein, Urine (Dipstick) Negative (Neg-Trace); Urobilinogen 0.2 mg/dL (Less than 2)
[2020-12-17 03:19] LABS: Bacteria/HPF Rare-Few HPF (None Seen); Mucous/LPF 1+ LPF (<2+); RBC/HPF 0-3 HPF (0-3); Squamous Epithelial 0-3 HPF (0-3); WBC/HPF None Seen HPF (0-3)
[2020-12-17] MEDS ORDERED: Dextrose 50% Abboject 50 ML SYRINGE ONE (03:48)
== END 2020-12-17 07:39 | disposition short-term general hospital (02) ==
LOC: MADERS 18:30
DX: E11.649 Type 2 diabetes mellitus with hypoglycemia without coma (principal); I49.9 Cardiac arrhythmia, unspecified; I10 Essential (primary) hypertension; Z87.891 Personal history of nicotine dependence; Z79.899 Other long term (current) drug therapy; Z79.82 Long term (current) use of aspirin; Z79.1 Long term (current) use of non-steroidal anti-inflammatories (NSAID); Z79.84 Long term (current) use of oral hypoglycemic drugs
CPT/HCPCS: 71045; 80053; 82962; 83605; 85025; J1610; 36416; 81003; 81015; 96365; 96366; 96375; 96376; J7042

== ENCOUNTER 2022-04-01 17:13 | Inpatient (IN) | payer MEDICARE ==
[2022-04-01] MEDS ORDERED: Ondansetron ODT 4 MG TAB PO PRN (21:28)
[2022-04-01 21:30] VITALS: BMI 31.4
[2022-04-01] MEDS ORDERED: HYDROMORPHONE HCL 4 MG PO PRN (21:39)
[2022-04-01] MEDS ORDERED: Fluticasone Propionate Nasal Spray 16 gm Bottle NASAL PRN (21:39)
[2022-04-01] MEDS ORDERED: Albuterol Sulfate 2.5 mg/3 ml Neb NEB PRN (21:39)
[2022-04-01] MEDS ORDERED: HYDROcodone/Acetaminophen 10/325 mg Tablet PO PRN (21:55)
[2022-04-01] MEDS ORDERED: Acetaminophen 325 MG TAB PO PRN (21:55)
[2022-04-01] MEDS ORDERED: Dextrose 50% Abboject 50 ML SYRINGE SLOW IVP PRN (21:56)
[2022-04-02] MEDS: HYDROcodone/Acetaminophen 10/325 mg Tablet PO PRN ×3 (01:06→09:33)
[2022-04-02] MEDS: Ferrous Sulfate 325 MG TAB PO SCH ×2 (08:12→18:08)
[2022-04-02] MEDS: Famotidine 20 MG TAB PO SCH (08:12)
[2022-04-02] MEDS: Calcium Carbonate 500 MG TAB PO SCH (08:12)
[2022-04-02] MEDS: Cyanocobalamin (Vitamin B-12) 1,000 MCG TAB PO SCH (08:12)
[2022-04-02] MEDS: Aspirin 81 mg Enteric Coated Tablet PO SCH ×2 (08:13→21:26)
[2022-04-02] MEDS: metFORMIN XR 500 MG TAB PO SCH ×2 (08:13→18:08)
[2022-04-02] MEDS: CeleCOXIB 100 MG CAP PO SCH ×2 (08:13→21:24)
[2022-04-02] MEDS: Hydrochlorothiazide 25 MG TAB PO SCH (08:14)
[2022-04-02] MEDS: Amlodipine 5 MG TAB PO SCH (08:14)
[2022-04-02] MEDS: Metoprolol Tartrate 50 MG TAB PO SCH ×2 (08:14→21:26)
[2022-04-02] MEDS: HumaLOG 300 UNITS/3 ML VIAL SC PRN ×2 (08:16→12:02)
[2022-04-02] MEDS: Brimonidine Tartrate 0.2% Ophth Soln 5 ml Bottle R EYE SCH ×3 (08:18→21:26)
[2022-04-02] MEDS: Non-Formulary Item 1 EACH (Budesonide/Glycopyr/Formoterol [Breztri Aerosphere Inhaler] 10 INH SCH ×2 (08:20→21:28)
[2022-04-02] MEDS: HERB PO SCH (10:07)
[2022-04-02] MEDS: BETA SITOSTEROL PO SCH (10:07)
[2022-04-02] MEDS: MV MN PO SCH (10:07)
[2022-04-02] MEDS ORDERED: metFORMIN 500 MG TAB ONE (17:07)
[2022-04-02] MEDS: HYDROcodone/Acetaminophen 10/325 mg Tablet PO SCH ×2 (18:09→22:48)
[2022-04-02] MEDS: Ibuprofen 800 MG TAB PO PRN (20:10)
[2022-04-02] MEDS: Fish Oil 1,000 MG CAP PO SCH (21:23)
[2022-04-02] MEDS: Allopurinol 100 MG TAB PO SCH (21:25)
[2022-04-03] MEDS: HYDROcodone/Acetaminophen 10/325 mg Tablet PO PRN ×5 (01:15→20:55)
[2022-04-03] MEDS: Cyclobenzaprine 10 MG TAB PO PRN ×2 (02:53→20:57)
[2022-04-03] MEDS: Ibuprofen 800 MG TAB PO PRN ×3 (03:31→23:57)
[2022-04-03] MEDS: Ferrous Sulfate 325 MG TAB PO SCH ×2 (07:49→16:35)
[2022-04-03] MEDS: Calcium Carbonate 500 MG TAB PO SCH (07:49)
[2022-04-03] MEDS: metFORMIN XR 500 MG TAB PO SCH ×2 (07:50→16:35)
[2022-04-03] MEDS: HumaLOG 300 UNITS/3 ML VIAL SC PRN ×2 (07:56→16:39)
[2022-04-03] MEDS: Brimonidine Tartrate 0.2% Ophth Soln 5 ml Bottle R EYE SCH ×3 (07:58→20:58)
[2022-04-03] MEDS: Amlodipine 5 MG TAB PO SCH (07:59)
[2022-04-03] MEDS: Aspirin 81 mg Enteric Coated Tablet PO SCH ×2 (08:00→20:58)
[2022-04-03] MEDS: CeleCOXIB 100 MG CAP PO SCH ×2 (08:00→20:57)
[2022-04-03] MEDS: Metoprolol Tartrate 50 MG TAB PO SCH ×2 (08:01→20:56)
[2022-04-03] MEDS: Cyanocobalamin (Vitamin B-12) 1,000 MCG TAB PO SCH (08:01)
[2022-04-03] MEDS: Famotidine 20 MG TAB PO SCH (08:01)
[2022-04-03] MEDS: Hydrochlorothiazide 25 MG TAB PO SCH (08:01)
[2022-04-03] MEDS: Non-Formulary Item 1 EACH (Budesonide/Glycopyr/Formoterol [Breztri Aerosphere Inhaler] 10 INH SCH ×2 (08:03→21:03)
[2022-04-03] MEDS: BETA SITOSTEROL PO SCH (08:05)
[2022-04-03] MEDS: HERB PO SCH (08:05)
[2022-04-03] MEDS: MV MN PO SCH (08:05)
[2022-04-03] MEDS: Allopurinol 100 MG TAB PO SCH (20:56)
[2022-04-03] MEDS: Fish Oil 1,000 MG CAP PO SCH (20:57)
[2022-04-04] MEDS: HYDROcodone/Acetaminophen 10/325 mg Tablet PO PRN ×4 (04:07→17:12)
[2022-04-04] MEDS: Aspirin 81 mg Enteric Coated Tablet PO SCH ×2 (08:08→20:19)
[2022-04-04] MEDS: Amlodipine 5 MG TAB PO SCH (08:08)
[2022-04-04] MEDS: Famotidine 20 MG TAB PO SCH (08:08)
[2022-04-04] MEDS: Ferrous Sulfate 325 MG TAB PO SCH ×2 (08:08→17:11)
[2022-04-04] MEDS: Metoprolol Tartrate 50 MG TAB PO SCH ×2 (08:08→20:20)
[2022-04-04] MEDS: Hydrochlorothiazide 25 MG TAB PO SCH (08:08)
[2022-04-04] MEDS: Cyanocobalamin (Vitamin B-12) 1,000 MCG TAB PO SCH (08:08)
[2022-04-04] MEDS: metFORMIN XR 500 MG TAB PO SCH ×2 (08:08→17:11)
[2022-04-04] MEDS: Calcium Carbonate 500 MG TAB PO SCH (08:08)
[2022-04-04] MEDS: Brimonidine Tartrate 0.2% Ophth Soln 5 ml Bottle R EYE SCH ×3 (08:09→20:22)
[2022-04-04] MEDS: CeleCOXIB 100 MG CAP PO SCH ×3 (08:09→20:20)
[2022-04-04] MEDS: HumaLOG 300 UNITS/3 ML VIAL SC PRN ×2 (08:10→13:19)
[2022-04-04] MEDS: MV MN PO SCH (08:21)
[2022-04-04] MEDS: HERB PO SCH (08:21)
[2022-04-04] MEDS: BETA SITOSTEROL PO SCH (08:21)
[2022-04-04] MEDS: Non-Formulary Item 1 EACH (Budesonide/Glycopyr/Formoterol [Breztri Aerosphere Inhaler] 10 INH SCH ×2 (08:22→20:22)
[2022-04-04] MEDS: Ibuprofen 800 MG TAB PO PRN ×2 (09:24→20:21)
[2022-04-04] MEDS: Cyclobenzaprine 10 MG TAB PO PRN (20:19)
[2022-04-04] MEDS: Fish Oil 1,000 MG CAP PO SCH (20:19)
[2022-04-04] MEDS: Allopurinol 100 MG TAB PO SCH (20:21)
[2022-04-05] MEDS: HYDROcodone/Acetaminophen 10/325 mg Tablet PO PRN ×5 (00:21→19:48)
[2022-04-05] MEDS: CeleCOXIB 100 MG CAP PO SCH ×2 (08:04→21:27)
[2022-04-05] MEDS: metFORMIN XR 500 MG TAB PO SCH ×2 (08:05→17:13)
[2022-04-05] MEDS: Famotidine 20 MG TAB PO SCH (08:06)
[2022-04-05] MEDS: Aspirin 81 mg Enteric Coated Tablet PO SCH ×2 (08:06→21:28)
[2022-04-05] MEDS: Metoprolol Tartrate 50 MG TAB PO SCH ×2 (08:06→21:28)
[2022-04-05] MEDS: Amlodipine 5 MG TAB PO SCH (08:06)
[2022-04-05] MEDS: Ibuprofen 800 MG TAB PO PRN (08:06)
[2022-04-05] MEDS: Hydrochlorothiazide 25 MG TAB PO SCH (08:06)
[2022-04-05] MEDS: Ferrous Sulfate 325 MG TAB PO SCH ×2 (08:06→17:13)
[2022-04-05] MEDS: Cyanocobalamin (Vitamin B-12) 1,000 MCG TAB PO SCH (08:06)
[2022-04-05] MEDS: Calcium Carbonate 500 MG TAB PO SCH (08:06)
[2022-04-05] MEDS: MV MN PO SCH (08:07)
[2022-04-05] MEDS: BETA SITOSTEROL PO SCH (08:07)
[2022-04-05] MEDS: HERB PO SCH (08:07)
[2022-04-05] MEDS: Brimonidine Tartrate 0.2% Ophth Soln 5 ml Bottle R EYE SCH ×3 (08:07→21:25)
[2022-04-05] MEDS: Non-Formulary Item 1 EACH (Budesonide/Glycopyr/Formoterol [Breztri Aerosphere Inhaler] 10 INH SCH ×2 (08:07→21:25)
[2022-04-05] MEDS: HumaLOG 300 UNITS/3 ML VIAL SC PRN ×2 (08:08→17:14)
[2022-04-05] MEDS: Allopurinol 100 MG TAB PO SCH (21:27)
[2022-04-05] MEDS: Cyclobenzaprine 10 MG TAB PO PRN (21:28)
[2022-04-05] MEDS: Fish Oil 1,000 MG CAP PO SCH (21:28)
[2022-04-06] MEDS: Ferrous Sulfate 325 MG TAB PO SCH ×2 (07:49→17:00)
[2022-04-06] MEDS: metFORMIN XR 500 MG TAB PO SCH ×2 (07:49→16:59)
[2022-04-06] MEDS: Calcium Carbonate 500 MG TAB PO SCH (07:49)
[2022-04-06] MEDS: HumaLOG 300 UNITS/3 ML VIAL SC PRN ×2 (07:50→17:13)
[2022-04-06] MEDS: CeleCOXIB 100 MG CAP PO SCH ×2 (08:09→22:17)
[2022-04-06] MEDS: Amlodipine 5 MG TAB PO SCH (08:09)
[2022-04-06] MEDS: Famotidine 20 MG TAB PO SCH (08:09)
[2022-04-06] MEDS: Aspirin 81 mg Enteric Coated Tablet PO SCH ×2 (08:09→22:19)
[2022-04-06] MEDS: Hydrochlorothiazide 25 MG TAB PO SCH (08:10)
[2022-04-06] MEDS: HYDROcodone/Acetaminophen 10/325 mg Tablet PO PRN ×4 (08:10→22:18)
[2022-04-06] MEDS: Cyanocobalamin (Vitamin B-12) 1,000 MCG TAB PO SCH (08:10)
[2022-04-06] MEDS: Metoprolol Tartrate 50 MG TAB PO SCH ×2 (08:10→22:19)
[2022-04-06] MEDS: HERB PO SCH (08:31)
[2022-04-06] MEDS: Brimonidine Tartrate 0.2% Ophth Soln 5 ml Bottle R EYE SCH ×3 (08:31→22:16)
[2022-04-06] MEDS: Non-Formulary Item 1 EACH (Budesonide/Glycopyr/Formoterol [Breztri Aerosphere Inhaler] 10 INH SCH ×2 (08:31→22:16)
[2022-04-06] MEDS: BETA SITOSTEROL PO SCH (08:31)
[2022-04-06] MEDS: MV MN PO SCH (08:31)
[2022-04-06 10:17] LABS: SARS-CoV-2 NAA Rapid Test DETECTED (NotDetected)
[2022-04-06] MEDS: Guaifenesin DM 100-10/5 ML UDCUP PO PRN ×2 (11:55→22:20)
[2022-04-06] MEDS ORDERED: Albuterol 200 PUFF (6.7GM INHALER) INH SCH (13:00)
[2022-04-06] MEDS: Albuterol 200 PUFF (6.7GM INHALER) INH SCH (17:09)
[2022-04-06] MEDS: Fish Oil 1,000 MG CAP PO SCH (22:17)
[2022-04-06] MEDS: Allopurinol 100 MG TAB PO SCH (22:19)
[2022-04-06] MEDS: Cyclobenzaprine 10 MG TAB PO PRN (22:20)
[2022-04-06] MEDS: Ascorbic Acid 500 mg Chewable Tablet PO SCH (22:21)
[2022-04-07] MEDS: Albuterol 200 PUFF (6.7GM INHALER) INH SCH ×3 (00:40→13:15)
[2022-04-07] MEDS: HYDROcodone/Acetaminophen 10/325 mg Tablet PO PRN (05:51)
[2022-04-07] MEDS: Brimonidine Tartrate 0.2% Ophth Soln 5 ml Bottle R EYE SCH ×2 (08:49→15:30)
[2022-04-07] MEDS: Amlodipine 5 MG TAB PO SCH (08:49)
[2022-04-07] MEDS: Cyanocobalamin (Vitamin B-12) 1,000 MCG TAB PO SCH (08:49)
[2022-04-07] MEDS: Ibuprofen 800 MG TAB PO PRN (08:50)
[2022-04-07] MEDS: CeleCOXIB 100 MG CAP PO SCH (08:50)
[2022-04-07] MEDS: Famotidine 20 MG TAB PO SCH (08:50)
[2022-04-07] MEDS: metFORMIN XR 500 MG TAB PO SCH ×2 (08:50→17:07)
[2022-04-07] MEDS: Metoprolol Tartrate 50 MG TAB PO SCH (08:50)
[2022-04-07] MEDS: Hydrochlorothiazide 25 MG TAB PO SCH (08:50)
[2022-04-07] MEDS: Aspirin 81 mg Enteric Coated Tablet PO SCH (08:51)
[2022-04-07] MEDS: HumaLOG 300 UNITS/3 ML VIAL SC PRN (08:51)
[2022-04-07] MEDS: Ascorbic Acid 500 mg Chewable Tablet PO SCH (08:51)
[2022-04-07] MEDS: Calcium Carbonate 500 MG TAB PO SCH (08:51)
[2022-04-07] MEDS: Ferrous Sulfate 325 MG TAB PO SCH ×2 (08:51→17:07)
[2022-04-07] MEDS: Guaifenesin DM 100-10/5 ML UDCUP PO PRN (08:52)
[2022-04-07] MEDS: Non-Formulary Item 1 EACH (Budesonide/Glycopyr/Formoterol [Breztri Aerosphere Inhaler] 10 INH SCH (08:53)
[2022-04-07] MEDS: MV MN PO SCH (08:53)
[2022-04-07] MEDS: BETA SITOSTEROL PO SCH (08:53)
[2022-04-07] MEDS: HERB PO SCH (08:53)
[2022-04-07] MEDS ORDERED: Zinc Sulfate 220 MG CAP PO SCH (09:00)
[2022-04-07] MEDS ORDERED: Cholecalciferol 1,000 UNITS (25 MCG) TAB PO SCH (09:00)
[2022-04-07 14:43] LABS: #Basophils 0.1 thou/uL (0.0-0.2); #Eosinphils 0.4 thou/uL (0.0-0.7); #Lymphocytes 0.8 thou/uL (1.20-3.40); #Neutrophils 5.8 thou/uL (1.40-6.50); %Basophils 0.7 % (0.0-1.0); %Lymphocytes 9.3 % (21.0-51.0); %Monocytes 12.4 % (0.0-10.0); %Neutrophils 72.6 % (42.0-75.0); Hemoglobin 8.5 g/dL (14.0-18.0); Mean Corpuscular HGB CONC 30.9 g/dL (32.0-36.0); Mean Corpuscular Hemoglobin 26.2 pg (27.0-31.0); Mean Corpuscular Volume 84.8 fL (78.0-98.0); Mean Platelet Volume 6.6 fL (7.4-10.4); Platelet Count 526 thou/uL (130-400); RBC Distribution Width 15.8 % (11.5-14.5); Red Blood Cell (RBC) Count 3.24 mill/uL (4.70-6.10)
[2022-04-07 14:55] LABS: Anion Gap 20 mmol/L (10-20); BUN (Urea Nitrogen) 98 mg/dL (8.4-25.7); Calc. Creatinine Clearance 14 mL/min (70-130); Calcium 8.1 mg/dL (7.8-10.44); Carbon Dioxide 16 mmol/L (23-31); Chloride 99 mmol/L (98-107); Glucose 123 mg/dL (83-110); Potassium 5.3 mmol/L (3.5-5.1); Sodium 130 mmol/L (136-145)
[2022-04-07 15:38] VITALS: BP 143/65; TEMP 97.9
[2022-04-07 17:30] LABS: Anion Gap 22 mmol/L (10-20); BUN (Urea Nitrogen) 98 mg/dL (8.4-25.7); Calc. Creatinine Clearance 14 mL/min (70-130); Carbon Dioxide 14 mmol/L (23-31); Chloride 99 mmol/L (98-107); Glucose 121 mg/dL (83-110); Potassium 5.4 mmol/L (3.5-5.1); Sodium 130 mmol/L (136-145)
[2022-04-07] MEDS ORDERED: Sodium Bicarbonate 75 MEQ in Dextrose 5% in Water 500 ML IV SCH (17:30)
[2022-04-07] MEDS ORDERED: Sodium Bicarb 50 MEQ/50 ML Abboject 8.4% SYRINGE ONE ×2 (17:34→17:50)
== END 2022-04-07 18:45 | disposition short-term general hospital (02) | DRG 559 ==
LOC: MADMS 20:15
PROVIDERS: ADMIT Family Medicine; ATTEND Family Medicine
PROC: 8E0ZXY6 Isolation (ICD-10-PCS; principal; 2022-04-06)
DX: Z47.1 Aftercare following joint replacement surgery (principal); U07.1 COVID-19; N17.9 Acute kidney failure, unspecified; Z96.651 Presence of right artificial knee joint; E11.9 Type 2 diabetes mellitus without complications; I10 Essential (primary) hypertension; J45.909 Unspecified asthma, uncomplicated; G89.29 Other chronic pain; Z96.643 Presence of artificial hip joint, bilateral; N40.0 Benign prostatic hyperplasia without lower urinary tract symptoms; M10.9 Gout, unspecified; H40.9 Unspecified glaucoma; M26.81 Anterior soft tissue impingement; R26.81 Unsteadiness on feet; Z88.8 Allergy status to other drugs, medicaments and biological substances; Z79.84 Long term (current) use of oral hypoglycemic drugs; Z79.899 Other long term (current) drug therapy; Z79.51 Long term (current) use of inhaled steroids; Z79.82 Long term (current) use of aspirin; Z87.891 Personal history of nicotine dependence
CPT/HCPCS: 36416; 71045; 80048; 85025; 87430; 36415-59; J1815; J7070; U0002; U0003; U0005

== ENCOUNTER 2022-04-07 18:45 | Emergency (ER) | payer MEDICARE ==
[2022-04-07 19:33] LABS: Phosphorus 6.9 mg/dL (2.3-4.7)
[2022-04-07 19:37] LABS: ALT (SGPT) 12 U/L (8-55); AST (SGOT) 23 U/L (5-34); Albumin 2.6 g/dL (3.4-4.8); Alkaline Phosphatase 96 U/L (40-110); Anion Gap 20 mmol/L (10-20); BUN (Urea Nitrogen) 99 mg/dL (8.4-25.7); Bilirubin, Total Less than 0.2 mg/dL (0.2-1.2); Calc. Creatinine Clearance 0 mL/min (70-130); Carbon Dioxide 16 mmol/L (23-31); Chloride 99 mmol/L (98-107); Globulin 3.6 g/dL (2.4-3.5); Glucose 132 mg/dL (83-110); Magnesium 2.1 mg/dL (1.6-2.6); Potassium 5.1 mmol/L (3.5-5.1); Protein, Total 6.2 g/dL (5.8-8.1); Sodium 130 mmol/L (136-145)
[2022-04-07] MEDS ORDERED: Sodium Chloride 0.9% 1,000 ML ONE (20:05)
[2022-04-07 21:13] LABS: Bilirubin Negative (Negative); Blood, Urine Trace (Negative); Clarity Clear (Clear); Glucose, Urine (Dipstick) Negative (Negative); Ketone, Urine Negative (Negative); Leukocyte Negative (Negative); Nitrite Negative (Negative); Protein, Urine (Dipstick) Trace mg/dL (Neg-Trace); Urobilinogen 0.2 mg/dL (Less than 2); pH, Urine 5.5 (5.0-9.0)
[2022-04-07 21:22] LABS: Bacteria/HPF None Seen HPF (None Seen); Renal Epithelial 0-3 HPF (None Seen); Transitional Epithelial 0-3 HPF (None Seen); WBC/HPF 0-3 HPF (0-3)
== END 2022-04-07 22:54 | disposition short-term general hospital (02) ==
LOC: MADERS 18:45
DX: U07.1 COVID-19 (principal); N17.9 Acute kidney failure, unspecified; E83.39 Other disorders of phosphorus metabolism; Z87.891 Personal history of nicotine dependence; Z79.899 Other long term (current) drug therapy; Z79.82 Long term (current) use of aspirin; Z79.84 Long term (current) use of oral hypoglycemic drugs; E11.9 Type 2 diabetes mellitus without complications; I10 Essential (primary) hypertension
CPT/HCPCS: 51702; 51798; 81003; 81015; 83735; 84100; 87086; 93005; 94760; J7050

== ENCOUNTER 2022-04-14 20:10 | Inpatient (IN) | payer MEDICARE ==
[2022-04-14 21:42] VITALS: BMI 30.4
[2022-04-14] MEDS ORDERED: Dextrose 50% Abboject 50 ML SYRINGE IVP PRN (22:15)
[2022-04-14] MEDS ORDERED: Dextrose 5% in Water 1,000 ML IV PRN (22:15)
[2022-04-14] MEDS ORDERED: Allopurinol 100 MG TAB PO SCH (22:30)
[2022-04-14] MEDS ORDERED: Brimonidine Tartrate 0.2% Ophth Soln 5 ml Bottle R EYE SCH (22:30)
[2022-04-14] MEDS ORDERED: Tamsulosin HCl 0.4 MG CAP PO SCH (22:30)
[2022-04-14] MEDS ORDERED: Fish Oil 1,000 MG CAP PO SCH (22:30)
[2022-04-14] MEDS ORDERED: Metoprolol Tartrate 50 MG TAB PO SCH (22:30)
[2022-04-14] MEDS ORDERED: Apixaban 5 MG TAB PO SCH (22:30)
[2022-04-14] MEDS: Benzonatate 100 MG CAP PO PRN (22:49)
[2022-04-14] MEDS: HYDROcodone/Acetaminophen 5/325 mg Tablet PO PRN (22:49)
[2022-04-15] MEDS ORDERED: Acetaminophen ER (8hr) 650 MG TAB PO PRN (03:38)
[2022-04-15] MEDS ORDERED: Calcium Carbonate 500 MG ChewTAB PO PRN (03:38)
[2022-04-15] MEDS ORDERED: TIOTROPIUM BROMIDE INH PRN (03:38)
[2022-04-15] MEDS ORDERED: Bisacodyl 5 MG TAB PO PRN (03:38)
[2022-04-15] MEDS ORDERED: Senokot S 8.6-50 MG TAB PO PRN (03:45)
[2022-04-15] MEDS ORDERED: [UNRECOGNIZED DRUG - MIXTURE] TOP PRN (03:45)
[2022-04-15] MEDS ORDERED: Fluticasone Propionate Nasal Spray 16 gm Bottle NASAL PRN (03:45)
[2022-04-15] MEDS ORDERED: Artificial Tear Sol 15 ML BOT EA EYE PRN (03:45)
[2022-04-15] MEDS ORDERED: Ondansetron ODT 4 MG TAB PO PRN (03:45)
[2022-04-15] MEDS: HYDROcodone/Acetaminophen 5/325 mg Tablet PO PRN ×4 (04:48→20:53)
[2022-04-15] MEDS: Amlodipine 5 MG TAB PO SCH (08:11)
[2022-04-15] MEDS: Cyanocobalamin (Vitamin B-12) 1,000 MCG TAB PO SCH (08:12)
[2022-04-15] MEDS: Metoprolol Tartrate 50 MG TAB PO SCH ×2 (08:12→20:57)
[2022-04-15] MEDS: Cholecalciferol 1,000 UNITS (25 MCG) TAB PO SCH (08:12)
[2022-04-15] MEDS: Calcium Carbonate 500 MG TAB PO SCH (08:12)
[2022-04-15] MEDS: Ascorbic Acid 500 mg Chewable Tablet PO SCH (08:12)
[2022-04-15] MEDS: Amoxicillin/Potassium Clav 875 MG TAB PO SCH ×2 (08:13→20:56)
[2022-04-15] MEDS: Acetaminophen 325 MG TAB PO PRN (08:13)
[2022-04-15] MEDS: Brimonidine Tartrate 0.2% Ophth Soln 5 ml Bottle R EYE SCH ×3 (08:14→21:14)
[2022-04-15] MEDS: HumaLOG 300 UNITS/3 ML VIAL SC PRN ×2 (08:15→12:16)
[2022-04-15 08:54] LABS: #Basophils 0.1 thou/uL (0.0-0.2); #Eosinphils 0.3 thou/uL (0.0-0.7); #Lymphocytes 1.1 thou/uL (1.20-3.40); #Monocytes 1.2 thou/uL (0.11-0.59); #Neutrophils 10.3 thou/uL (1.40-6.50); %Basophils 0.4 % (0.0-1.0); %Eosinophils 2.1 % (0.0-10.0); %Lymphocytes 8.9 % (21.0-51.0); %Monocytes 8.9 % (0.0-10.0); %Neutrophils 79.6 % (42.0-75.0); Hemoglobin 9.1 g/dL (14.0-18.0); Mean Corpuscular HGB CONC 30.9 g/dL (32.0-36.0); Mean Corpuscular Hemoglobin 25.8 pg (27.0-31.0); Mean Corpuscular Volume 83.4 fL (78.0-98.0); Mean Platelet Volume 7.6 fL (7.4-10.4); Platelet Count 498 thou/uL (130-400); RBC Distribution Width 16.8 % (11.5-14.5); Red Blood Cell (RBC) Count 3.52 mill/uL (4.70-6.10); White Blood Cell (WBC) Count 12.9 thou/uL (4.8-10.8)
[2022-04-15] MEDS ORDERED: Apixaban 5 MG TAB PO SCH ×2 (09:00)
[2022-04-15 09:01] LABS: Anion Gap 18 mmol/L (10-20); BUN (Urea Nitrogen) 21 mg/dL (8.4-25.7); Calc. Creatinine Clearance 53 mL/min (70-130); Calcium 8.6 mg/dL (7.8-10.44); Carbon Dioxide 20 mmol/L (23-31); Chloride 100 mmol/L (98-107); Glucose 177 mg/dL (83-110); Sodium 134 mmol/L (136-145)
[2022-04-15] MEDS: Tamsulosin HCl 0.4 MG CAP PO SCH (20:53)
[2022-04-15] MEDS: Allopurinol 100 MG TAB PO SCH (20:55)
[2022-04-15] MEDS: Apixaban 5 MG TAB PO SCH (20:56)
[2022-04-15] MEDS: Fish Oil 1,000 MG CAP PO SCH (20:56)
[2022-04-15] MEDS ORDERED: Fish Oil 1,000 MG CAP PO SCH (21:00)
[2022-04-16] MEDS: HYDROcodone/Acetaminophen 5/325 mg Tablet PO PRN ×4 (02:26→16:34)
[2022-04-16] MEDS: Acetaminophen 325 MG TAB PO PRN (05:11)
[2022-04-16] MEDS: Brimonidine Tartrate 0.2% Ophth Soln 5 ml Bottle R EYE SCH ×3 (08:24→20:55)
[2022-04-16] MEDS: HumaLOG 300 UNITS/3 ML VIAL SC PRN ×4 (08:24→20:58)
[2022-04-16] MEDS: Amoxicillin/Potassium Clav 875 MG TAB PO SCH ×2 (08:25→20:54)
[2022-04-16] MEDS: Amlodipine 5 MG TAB PO SCH (08:25)
[2022-04-16] MEDS: Cyanocobalamin (Vitamin B-12) 1,000 MCG TAB PO SCH (08:26)
[2022-04-16] MEDS: Ascorbic Acid 500 mg Chewable Tablet PO SCH (08:26)
[2022-04-16] MEDS: Metoprolol Tartrate 50 MG TAB PO SCH ×2 (08:26→20:52)
[2022-04-16] MEDS: Calcium Carbonate 500 MG TAB PO SCH (08:26)
[2022-04-16] MEDS: Apixaban 5 MG TAB PO SCH ×2 (08:26→20:53)
[2022-04-16] MEDS: Cholecalciferol 1,000 UNITS (25 MCG) TAB PO SCH (08:27)
[2022-04-16] MEDS: Allopurinol 100 MG TAB PO SCH (20:53)
[2022-04-16] MEDS: Tamsulosin HCl 0.4 MG CAP PO SCH (20:54)
[2022-04-16] MEDS: Fish Oil 1,000 MG CAP PO SCH (20:54)
[2022-04-17] MEDS: HYDROcodone/Acetaminophen 5/325 mg Tablet PO PRN ×3 (01:52→21:55)
[2022-04-17] MEDS: Albuterol 200 PUFF (6.7GM INHALER) INH PRN (06:17)
[2022-04-17] MEDS: Brimonidine Tartrate 0.2% Ophth Soln 5 ml Bottle R EYE SCH ×3 (08:12→23:27)
[2022-04-17] MEDS: Ascorbic Acid 500 mg Chewable Tablet PO SCH (08:13)
[2022-04-17] MEDS: Amoxicillin/Potassium Clav 875 MG TAB PO SCH ×2 (08:13→21:55)
[2022-04-17] MEDS: Metoprolol Tartrate 50 MG TAB PO SCH ×2 (08:13→21:55)
[2022-04-17] MEDS: Calcium Carbonate 500 MG TAB PO SCH (08:13)
[2022-04-17] MEDS: Cyanocobalamin (Vitamin B-12) 1,000 MCG TAB PO SCH (08:14)
[2022-04-17] MEDS: Apixaban 5 MG TAB PO SCH ×2 (08:14→21:55)
[2022-04-17] MEDS: HumaLOG 300 UNITS/3 ML VIAL SC PRN ×3 (08:14→16:59)
[2022-04-17] MEDS: Cholecalciferol 1,000 UNITS (25 MCG) TAB PO SCH (08:14)
[2022-04-17] MEDS: Amlodipine 5 MG TAB PO SCH (08:14)
[2022-04-17] MEDS: Allopurinol 100 MG TAB PO SCH (21:54)
[2022-04-17] MEDS: Fish Oil 1,000 MG CAP PO SCH (21:55)
[2022-04-17] MEDS: Tamsulosin HCl 0.4 MG CAP PO SCH (21:55)
[2022-04-18] MEDS: Benzonatate 100 MG CAP PO PRN ×2 (03:20→21:44)
[2022-04-18] MEDS: Cepastat Lozenges 1 LOZ PO PRN ×2 (03:20→21:44)
[2022-04-18] MEDS: HYDROcodone/Acetaminophen 5/325 mg Tablet PO PRN ×2 (05:44→18:06)
[2022-04-18] MEDS: Albuterol 200 PUFF (6.7GM INHALER) INH PRN (05:45)
[2022-04-18] MEDS: Amoxicillin/Potassium Clav 875 MG TAB PO SCH ×2 (08:20→21:45)
[2022-04-18] MEDS: Cyanocobalamin (Vitamin B-12) 1,000 MCG TAB PO SCH (08:21)
[2022-04-18] MEDS: Apixaban 5 MG TAB PO SCH ×2 (08:21→21:44)
[2022-04-18] MEDS: Calcium Carbonate 500 MG TAB PO SCH (08:21)
[2022-04-18] MEDS: metFORMIN 500 MG TAB PO SCH ×2 (08:21→16:50)
[2022-04-18] MEDS: Cholecalciferol 1,000 UNITS (25 MCG) TAB PO SCH (08:21)
[2022-04-18] MEDS: Ascorbic Acid 500 mg Chewable Tablet PO SCH (08:21)
[2022-04-18] MEDS: Amlodipine 5 MG TAB PO SCH (08:22)
[2022-04-18] MEDS: Metoprolol Tartrate 50 MG TAB PO SCH ×2 (08:22→21:45)
[2022-04-18] MEDS: HumaLOG 300 UNITS/3 ML VIAL SC PRN ×4 (08:35→21:41)
[2022-04-18] MEDS: Brimonidine Tartrate 0.2% Ophth Soln 5 ml Bottle R EYE SCH ×3 (08:35→21:44)
[2022-04-18] MEDS ORDERED: Lantiseptic Ointment 130 GM JAR TOP PRN (09:08)
[2022-04-18] MEDS ORDERED: Nystatin Cream 15 GM TUBE TOP PRN (09:09)
[2022-04-18] MEDS ORDERED: Polyethylene Glycol 3350 17 GM Packet PO SCH (09:15)
[2022-04-18] MEDS ORDERED: Acetaminophen 325 MG TAB PO PRN (10:39)
[2022-04-18] MEDS ORDERED: BREZTRI INH SCH (12:15)
[2022-04-18] MEDS ORDERED: FORMOTEROL INH SCH (12:15)
[2022-04-18] MEDS ORDERED: GLYCOPYRROLATE INH SCH (12:15)
[2022-04-18] MEDS ORDERED: predniSONE 10 MG TAB PO SCH (13:30)
[2022-04-18] MEDS: Nystatin Cream 15 GM TUBE TOP SCH (21:43)
[2022-04-18] MEDS: Polyethylene Glycol 3350 17 GM Packet PO SCH (21:43)
[2022-04-18] MEDS: Lantiseptic Ointment 130 GM JAR TOP SCH (21:43)
[2022-04-18] MEDS: Fish Oil 1,000 MG CAP PO SCH (21:44)
[2022-04-18] MEDS: Tamsulosin HCl 0.4 MG CAP PO SCH (21:44)
[2022-04-18] MEDS: Allopurinol 100 MG TAB PO SCH (21:45)
[2022-04-18] MEDS: BREZTRI INH SCH (21:47)
[2022-04-18] MEDS: GLYCOPYRROLATE INH SCH (21:47)
[2022-04-18] MEDS: FORMOTEROL INH SCH (21:47)
[2022-04-19] MEDS: Albuterol 200 PUFF (6.7GM INHALER) INH PRN (02:51)
[2022-04-19] MEDS: Cepastat Lozenges 1 LOZ PO PRN (02:52)
[2022-04-19] MEDS: metFORMIN 500 MG TAB PO SCH ×2 (07:37→16:19)
[2022-04-19] MEDS: HumaLOG 300 UNITS/3 ML VIAL SC PRN ×4 (07:41→21:31)
[2022-04-19] MEDS: Amlodipine 5 MG TAB PO SCH (08:05)
[2022-04-19] MEDS: Amoxicillin/Potassium Clav 875 MG TAB PO SCH ×2 (08:05→20:19)
[2022-04-19] MEDS: Metoprolol Tartrate 50 MG TAB PO SCH ×2 (08:05→20:21)
[2022-04-19] MEDS: Cyanocobalamin (Vitamin B-12) 1,000 MCG TAB PO SCH (08:05)
[2022-04-19] MEDS: Cholecalciferol 1,000 UNITS (25 MCG) TAB PO SCH (08:07)
[2022-04-19] MEDS: Calcium Carbonate 500 MG TAB PO SCH (08:07)
[2022-04-19] MEDS: Apixaban 5 MG TAB PO SCH ×2 (08:07→20:20)
[2022-04-19] MEDS: predniSONE 10 MG TAB PO SCH (08:08)
[2022-04-19] MEDS: Ascorbic Acid 500 mg Chewable Tablet PO SCH (08:08)
[2022-04-19] MEDS: Lantiseptic Ointment 130 GM JAR TOP SCH ×2 (08:08→20:22)
[2022-04-19] MEDS: Nystatin Cream 15 GM TUBE TOP SCH ×2 (08:09→20:27)
[2022-04-19] MEDS: Brimonidine Tartrate 0.2% Ophth Soln 5 ml Bottle R EYE SCH ×3 (08:11→20:26)
[2022-04-19] MEDS: BREZTRI INH SCH ×2 (08:13→20:22)
[2022-04-19] MEDS: GLYCOPYRROLATE INH SCH ×2 (08:13→20:22)
[2022-04-19] MEDS: FORMOTEROL INH SCH ×2 (08:13→20:22)
[2022-04-19] MEDS: HYDROcodone/Acetaminophen 5/325 mg Tablet PO PRN ×2 (16:18→20:36)
[2022-04-19] MEDS: Nystatin 500,000 UNITS/5 ML UDCUP SSW SCH ×2 (16:56→20:21)
[2022-04-19] MEDS: Polyethylene Glycol 3350 17 GM Packet PO SCH (20:18)
[2022-04-19] MEDS: Tamsulosin HCl 0.4 MG CAP PO SCH (20:19)
[2022-04-19] MEDS: Fish Oil 1,000 MG CAP PO SCH (20:19)
[2022-04-19] MEDS: Allopurinol 100 MG TAB PO SCH (20:20)
[2022-04-20] MEDS: HYDROcodone/Acetaminophen 5/325 mg Tablet PO PRN (00:35)
[2022-04-20 05:26] LABS: Hemoglobin 7.1 g/dL (14.0-18.0); Platelet Count 556 thou/uL (130-400)
[2022-04-20] MEDS: Brimonidine Tartrate 0.2% Ophth Soln 5 ml Bottle R EYE SCH ×2 (08:00→15:15)
[2022-04-20] MEDS: HumaLOG 300 UNITS/3 ML VIAL SC PRN ×2 (08:02→11:59)
[2022-04-20] MEDS: Nystatin 500,000 UNITS/5 ML UDCUP SSW SCH ×3 (08:03→17:24)
[2022-04-20] MEDS: Lantiseptic Ointment 130 GM JAR TOP SCH (08:03)
[2022-04-20] MEDS: Nystatin Cream 15 GM TUBE TOP SCH (08:03)
[2022-04-20] MEDS: Amlodipine 5 MG TAB PO SCH (08:04)
[2022-04-20] MEDS: metFORMIN 500 MG TAB PO SCH (08:04)
[2022-04-20] MEDS: Ascorbic Acid 500 mg Chewable Tablet PO SCH (08:05)
[2022-04-20] MEDS: Apixaban 5 MG TAB PO SCH (08:05)
[2022-04-20] MEDS: Amoxicillin/Potassium Clav 875 MG TAB PO SCH (08:06)
[2022-04-20] MEDS: Cyanocobalamin (Vitamin B-12) 1,000 MCG TAB PO SCH (08:06)
[2022-04-20] MEDS: Calcium Carbonate 500 MG TAB PO SCH (08:08)
[2022-04-20] MEDS: Metoprolol Tartrate 50 MG TAB PO SCH (08:09)
[2022-04-20] MEDS: Cholecalciferol 1,000 UNITS (25 MCG) TAB PO SCH (08:09)
[2022-04-20] MEDS: predniSONE 10 MG TAB PO SCH (08:10)
[2022-04-20] MEDS: GLYCOPYRROLATE INH SCH (08:10)
[2022-04-20] MEDS: FORMOTEROL INH SCH (08:10)
[2022-04-20] MEDS: BREZTRI INH SCH (08:10)
[2022-04-20 13:26] LABS: INR-International Normal Ratio 3.9; Prothrombin Time 39.4 sec (12.0-14.7)
[2022-04-20 13:35] LABS: ALT (SGPT) 38 U/L (8-55); AST (SGOT) 55 U/L (5-34); Albumin 2.3 g/dL (3.4-4.8); Alkaline Phosphatase 122 U/L (40-110); Anion Gap 20 mmol/L (10-20); BUN (Urea Nitrogen) 82 mg/dL (8.4-25.7); Bilirubin, Total 0.3 mg/dL (0.2-1.2); Calc. Creatinine Clearance 22 mL/min (70-130); Calcium 8.3 mg/dL (7.8-10.44); Carbon Dioxide 16 mmol/L (23-31); Chloride 90 mmol/L (98-107); Globulin 3.8 g/dL (2.4-3.5); Glucose 272 mg/dL (83-110); Protein, Total 6.1 g/dL (5.8-8.1); Sodium 120 mmol/L (136-145)
[2022-04-20] MEDS ORDERED: Furosemide 40 MG/4 ML VIAL ONE (15:31)
[2022-04-20] MEDS ORDERED: Furosemide 40 MG/4 ML VIAL SLOW IVP SCH (15:45)
[2022-04-20 17:15] LABS: #Lymphocytes 0.5 thou/uL (1.20-3.40); #Monocytes 0.6 thou/uL (0.11-0.59); #Neutrophils 9.4 thou/uL (1.40-6.50); %Basophils 0.3 % (0.0-1.0); %Eosinophils 0.1 % (0.0-10.0); %Lymphocytes 4.6 % (21.0-51.0); %Monocytes 5.4 % (0.0-10.0); %Neutrophils 89.7 % (42.0-75.0); Hemoglobin 7.3 g/dL (14.0-18.0); Mean Corpuscular HGB CONC 31.1 g/dL (32.0-36.0); Mean Corpuscular Hemoglobin 25.7 pg (27.0-31.0); Mean Corpuscular Volume 82.7 fL (78.0-98.0); Mean Platelet Volume 7.6 fL (7.4-10.4); Platelet Count 618 thou/uL (130-400); RBC Distribution Width 16.3 % (11.5-14.5); Red Blood Cell (RBC) Count 2.85 mill/uL (4.70-6.10); White Blood Cell (WBC) Count 10.5 thou/uL (4.8-10.8)
[2022-04-20 17:31] VITALS: BP 132/61; TEMP 98.7
[2022-04-20 19:06] LABS: Critical Call Chem Troponin I NUR.KR7
[2022-04-20 19:27] LABS: CKMB 2.8 ng/mL (0-6.6)
[2022-04-21] MEDS ORDERED: Apixaban 5 MG TAB PO SCH (09:00)
== END 2022-04-20 17:15 | disposition short-term general hospital (02) | DRG 948 ==
LOC: MADMS 20:10
PROVIDERS: ADMIT Family Medicine; ATTEND Family Medicine
DX: R53.81 Other malaise (principal); I82.419 Acute embolism and thrombosis of unspecified femoral vein; K92.2 Gastrointestinal hemorrhage, unspecified; N17.9 Acute kidney failure, unspecified; E87.1 Hypo-osmolality and hyponatremia; J90 Pleural effusion, not elsewhere classified; N39.0 Urinary tract infection, site not specified; N13.8 Other obstructive and reflux uropathy; R53.1 Weakness; J45.909 Unspecified asthma, uncomplicated; G89.29 Other chronic pain; M54.9 Dorsalgia, unspecified; H40.9 Unspecified glaucoma; I12.9 Hypertensive chronic kidney disease with stage 1 through stage 4 chronic kidney disease, or unspecified chronic kidney disease; E11.22 Type 2 diabetes mellitus with diabetic chronic kidney disease; N18.9 Chronic kidney disease, unspecified; R26.81 Unsteadiness on feet; M10.9 Gout, unspecified; R79.89 Other specified abnormal findings of blood chemistry; E11.65 Type 2 diabetes mellitus with hyperglycemia; E87.5 Hyperkalemia; D50.9 Iron deficiency anemia, unspecified; D75.839 Thrombocytosis, unspecified; D63.1 Anemia in chronic kidney disease; N40.1 Benign prostatic hyperplasia with lower urinary tract symptoms; Z96.651 Presence of right artificial knee joint; Z86.73 Personal history of transient ischemic attack (TIA), and cerebral infarction without residual deficits; Z87.442 Personal history of urinary calculi; Z88.8 Allergy status to other drugs, medicaments and biological substances; Z79.899 Other long term (current) drug therapy; Z79.4 Long term (current) use of insulin; Z86.16 Personal history of COVID-19; Z79.01 Long term (current) use of anticoagulants
CPT/HCPCS: 36416; 71045; 74176; 80048; 80053; 82274; 82550; 82553; 82728; 83880; 84484; 85014; 85018; 85025; 85049; 85610; 36415-59; J1940; J7512

== ENCOUNTER 2022-05-09 21:13 | Inpatient (IN) | payer MEDICARE ==
[2022-05-09 22:40] VITALS: BMI 29.2
[2022-05-09] MEDS ORDERED: Dextrose 50% Abboject 50 ML SYRINGE IVP PRN (23:45)
[2022-05-09] MEDS ORDERED: Dextrose 5% in Water 1,000 ML IV PRN (23:45)
[2022-05-09] MEDS ORDERED: HumaLOG 300 UNITS/3 ML VIAL SC PRN ×2 (23:45)
[2022-05-09] MEDS ORDERED: Lidocaine Viscous Sol 2% 15 ml UD Cup SSP PRN (23:47)
[2022-05-09] MEDS ORDERED: Docusate 100 MG CAP PO PRN (23:52)
[2022-05-09] MEDS ORDERED: Benzocaine (Dental) 7 GM TUBE TOP PRN (23:53)
[2022-05-09] MEDS ORDERED: Benzonatate 100 MG CAP PO PRN ×2 (23:53→23:58)
[2022-05-09] MEDS ORDERED: Acetaminophen 325 MG TAB PO PRN (23:56)
[2022-05-10] MEDS: HYDROcodone/Acetaminophen 5/325 mg Tablet PO PRN ×6 (00:58→21:38)
[2022-05-10] MEDS ORDERED: Ferrous Sulfate 325 MG TAB PO SCH (08:00)
[2022-05-10] MEDS: Enoxaparin Sodium 40 MG/0.4 ML SYRINGE SC SCH (08:36)
[2022-05-10] MEDS: Brimonidine Tartrate 0.2% Ophth Soln 5 ml Bottle R EYE SCH ×3 (08:36→20:50)
[2022-05-10] MEDS: Metoprolol Tartrate 25 MG TAB PO SCH ×2 (08:39→20:44)
[2022-05-10] MEDS: Budesonide 0.5 MG/2 ML NEB NEB SCH ×2 (08:39→20:44)
[2022-05-10] MEDS: Allopurinol 100 MG TAB PO SCH (08:39)
[2022-05-10] MEDS: Cholecalciferol (Vitamin D3) 400 UNITS TAB PO SCH (08:40)
[2022-05-10] MEDS: Fluconazole 100 MG TAB PO SCH (08:40)
[2022-05-10] MEDS: Senokot S 8.6-50 MG TAB PO SCH ×2 (08:45→20:44)
[2022-05-10 09:24] LABS: ALT (SGPT) 10 U/L (8-55); AST (SGOT) 11 U/L (5-34); Albumin 2.5 g/dL (3.4-4.8); Alkaline Phosphatase 72 U/L (40-110); Anion Gap 15 mmol/L (10-20); BUN (Urea Nitrogen) 34 mg/dL (8.4-25.7); Bilirubin, Total 0.3 mg/dL (0.2-1.2); Calc. Creatinine Clearance 38 mL/min (70-130); Calcium 8.3 mg/dL (7.8-10.44); Carbon Dioxide 21 mmol/L (23-31); Chloride 104 mmol/L (98-107); Estimated GFR 33; Glucose 144 mg/dL (83-110); Potassium 5.6 mmol/L (3.5-5.1); Protein, Total 5.5 g/dL (5.8-8.1); Sodium 134 mmol/L (136-145)
[2022-05-10] MEDS ORDERED: Polyethylene Glycol 3350 17 GM Packet PO SCH (17:00)
[2022-05-10] MEDS ORDERED: Lantus 1000 UNITS/10 ML VIAL SC SCH (21:00)
[2022-05-10] MEDS ORDERED: Tamsulosin HCl 0.4 MG CAP PO SCH (21:00)
[2022-05-11] MEDS: HYDROcodone/Acetaminophen 5/325 mg Tablet PO PRN ×2 (01:35→05:33)
[2022-05-11 05:27] LABS: #Basophils 0.1 thou/uL (0.0-0.2); #Eosinphils 0.4 thou/uL (0.0-0.7); #Lymphocytes 1.2 thou/uL (1.20-3.40); #Monocytes 0.7 thou/uL (0.11-0.59); #Neutrophils 10.3 thou/uL (1.40-6.50); %Basophils 0.7 % (0.0-1.0); %Eosinophils 2.9 % (0.0-10.0); %Lymphocytes 9.7 % (21.0-51.0); %Monocytes 5.8 % (0.0-10.0); %Neutrophils 80.9 % (42.0-75.0); Hemoglobin 8.2 g/dL (14.0-18.0); Mean Corpuscular HGB CONC 31.9 g/dL (32.0-36.0); Mean Corpuscular Hemoglobin 25.7 pg (27.0-31.0); Mean Corpuscular Volume 80.4 fL (78.0-98.0); Platelet Count 527 thou/uL (130-400); RBC Distribution Width 18.4 % (11.5-14.5); Red Blood Cell (RBC) Count 3.18 mill/uL (4.70-6.10); White Blood Cell (WBC) Count 12.7 thou/uL (4.8-10.8)
[2022-05-11] MEDS ORDERED: Lantiseptic Ointment 130 GM JAR TOP PRN (08:10)
[2022-05-11] MEDS: Senokot S 8.6-50 MG TAB PO SCH (08:33)
[2022-05-11] MEDS: Fluconazole 100 MG TAB PO SCH (08:33)
[2022-05-11] MEDS: Brimonidine Tartrate 0.2% Ophth Soln 5 ml Bottle R EYE SCH ×2 (08:34→14:41)
[2022-05-11] MEDS: Allopurinol 100 MG TAB PO SCH (08:34)
[2022-05-11] MEDS: Cholecalciferol (Vitamin D3) 400 UNITS TAB PO SCH (08:34)
[2022-05-11] MEDS: Enoxaparin Sodium 40 MG/0.4 ML SYRINGE SC SCH (08:34)
[2022-05-11] MEDS: Metoprolol Tartrate 25 MG TAB PO SCH (08:34)
[2022-05-11] MEDS: Budesonide 0.5 MG/2 ML NEB NEB SCH (08:34)
[2022-05-11] MEDS ORDERED: Lantiseptic Ointment 130 GM JAR TOP SCH (09:00)
[2022-05-11 15:25] VITALS: BP 96/62; TEMP 97.8
== END 2022-05-11 15:47 | disposition short-term general hospital (02) | DRG 947 ==
LOC: MADMS 21:13
PROVIDERS: ADMIT Family Medicine; ATTEND Family Medicine
DX: R53.81 Other malaise (principal); A41.9 Sepsis, unspecified organism; C18.4 Malignant neoplasm of transverse colon; I13.0 Hypertensive heart and chronic kidney disease with heart failure and stage 1 through stage 4 chronic kidney disease, or unspecified chronic kidney disease; I50.32 Chronic diastolic (congestive) heart failure; D62 Acute posthemorrhagic anemia; Z20.822 Contact with and (suspected) exposure to COVID-19; R33.9 Retention of urine, unspecified; J45.909 Unspecified asthma, uncomplicated; N40.0 Benign prostatic hyperplasia without lower urinary tract symptoms; G89.29 Other chronic pain; H40.9 Unspecified glaucoma; N18.9 Chronic kidney disease, unspecified; E11.22 Type 2 diabetes mellitus with diabetic chronic kidney disease; D63.1 Anemia in chronic kidney disease; R13.10 Dysphagia, unspecified; M54.50 Low back pain, unspecified; K59.00 Constipation, unspecified; I95.9 Hypotension, unspecified; J20.9 Acute bronchitis, unspecified; Z96.643 Presence of artificial hip joint, bilateral; Z96.653 Presence of artificial knee joint, bilateral; Z79.899 Other long term (current) drug therapy; Z79.4 Long term (current) use of insulin; Z88.8 Allergy status to other drugs, medicaments and biological substances
CPT/HCPCS: 36416; 70450; 71045; 74176; 80053; 81003; 81015; 82330; 82553; 82803; 83605; 83735; 84443; 84484; 84550; 85025; 85610; 85730; 87040; 87086; 93005; 94640; 94760; 36415-59; J0692; J1650; J1815; J2185; J3370; J3430; J3490; J7050; J7120; J7620; J7626

== ENCOUNTER 2022-05-11 16:00 | Emergency (ER) | payer MEDICARE ==
[2022-05-11 16:41] LABS: #Basophils 0.1 thou/uL (0.0-0.2); #Eosinphils 0.3 thou/uL (0.0-0.7); #Lymphocytes 1.4 thou/uL (1.20-3.40); #Neutrophils 11.4 thou/uL (1.40-6.50); %Basophils 0.6 % (0.0-1.0); %Eosinophils 2.3 % (0.0-10.0); %Lymphocytes 9.8 % (21.0-51.0); %Monocytes 6.7 % (0.0-10.0); %Neutrophils 80.7 % (42.0-75.0); Hemoglobin 7.6 g/dL (14.0-18.0); Mean Corpuscular HGB CONC 31.9 g/dL (32.0-36.0); Mean Corpuscular Hemoglobin 26.1 pg (27.0-31.0); Mean Corpuscular Volume 81.6 fL (78.0-98.0); Mean Platelet Volume 6.7 fL (7.4-10.4); Platelet Count 571 thou/uL (130-400); RBC Distribution Width 18.1 % (11.5-14.5); Red Blood Cell (RBC) Count 2.92 mill/uL (4.70-6.10); White Blood Cell (WBC) Count 14.2 thou/uL (4.8-10.8)
[2022-05-11 16:51] LABS: Bilirubin Negative (Negative); Blood, Urine Small (Negative); Clarity Clear (Clear); Glucose, Urine (Dipstick) Negative (Negative); Ketone, Urine Negative (Negative); Leukocyte Negative (Negative); Nitrite Negative (Negative); Protein, Urine (Dipstick) > or equal to 300 mg/dL (Neg-Trace); Specific Gravity, Urine 1.015 (1.005-1.030); Urobilinogen 0.2 mg/dL (Less than 2)
[2022-05-11 16:57] LABS: Bacteria/HPF Rare-Few HPF (None Seen); Squamous Epithelial 0-3 HPF (0-3)
[2022-05-11 16:57] LABS: ALT (SGPT) 8 U/L (8-55); AST (SGOT) 12 U/L (5-34); Albumin 2.6 g/dL (3.4-4.8); Alkaline Phosphatase 67 U/L (40-110); Anion Gap 16 mmol/L (10-20); BUN (Urea Nitrogen) 40 mg/dL (8.4-25.7); Bilirubin, Total 0.3 mg/dL (0.2-1.2); Calc. Creatinine Clearance 0 mL/min (70-130); Calcium 8.2 mg/dL (7.8-10.44); Carbon Dioxide 18 mmol/L (23-31); Chloride 105 mmol/L (98-107); Estimated GFR 27; Globulin 2.9 g/dL (2.4-3.5); Glucose 109 mg/dL (83-110); Potassium 5.5 mmol/L (3.5-5.1); Protein, Total 5.5 g/dL (5.8-8.1); Sodium 133 mmol/L (136-145)
[2022-05-11 17:13] LABS: INR-International Normal Ratio 1.3; Prothrombin Time 16.7 sec (12.0-14.7)
[2022-05-11 17:14] LABS: Base Excess-Venous -4.5 mmol/L (-2.0 to 3.0); Bicarbonate (HCO3v) 19.2 mmol/L (22.0-28.0); CO2 Tension (PvCO2) 29.4 mmHg (42.0-51.0); Calcium, Ionized 1.11 mmol/L (1.15-1.33); Chloride 106 mmol/L (98-107); Hemoglobin - Calc 9.5 g/dL (14.0-18.0); Potassium 5.9 mmol/L (3.5-5.1); Sodium 134 mmol/L (138-145); T. Carbon Dioxide 20.1 mmol/L (22.0-28.0); vO2 Saturation-calc 99.8 % (60.0-85.0)
[2022-05-11 17:25] LABS: CKMB 3.6 ng/mL (0-6.6)
[2022-05-11] MEDS ORDERED: Aspirin Chewable 81 MG TAB ONE (17:40)
[2022-05-11] MEDS ORDERED: Lactated Ringer's 1,000 ML ONE (17:40)
[2022-05-11] MEDS ORDERED: Vancomycin HCl 500 MG VIAL ONE (20:08)
[2022-05-11] MEDS ORDERED: Sodium Chloride 0.9% 250 ML 250 ML ONE (20:08)
[2022-05-11] MEDS ORDERED: Sodium Chloride 0.9% 200 ML ONE (20:08)
[2022-05-11] MEDS ORDERED: Acetaminophen 325 MG TAB ONE ×2 (20:08→21:03)
[2022-05-11] MEDS ORDERED: Cefepime 2 GM VIAL ONE (20:08)
[2022-05-11] MEDS ORDERED: Meropenem 1 GM VIAL ONE (20:10)
[2022-05-11] MEDS ORDERED: Sodium Chloride 0.9% 100 ML ONE (20:10)
[2022-05-11] MEDS ORDERED: Phytonadione 10 MG/ML AMP ONE (20:10)
[2022-05-11] MEDS ORDERED: HYDROcodone/Acetaminophen 5/325 mg Tablet ONE (22:01)
[2022-05-11] MEDS ORDERED: Benzonatate 100 MG CAP ONE (23:31)
== END 2022-05-11 23:54 | disposition short-term general hospital (02) ==
LOC: MADERS 16:00
DX: G93.40 Encephalopathy, unspecified (principal); I21.4 Non-ST elevation (NSTEMI) myocardial infarction; N17.9 Acute kidney failure, unspecified; E86.0 Dehydration; E87.5 Hyperkalemia; R29.704 NIHSS score 4; I13.10 Hypertensive heart and chronic kidney disease without heart failure, with stage 1 through stage 4 chronic kidney disease, or unspecified chronic kidney disease; E11.22 Type 2 diabetes mellitus with diabetic chronic kidney disease; N18.9 Chronic kidney disease, unspecified; D50.0 Iron deficiency anemia secondary to blood loss (chronic); Z87.891 Personal history of nicotine dependence; Z79.82 Long term (current) use of aspirin; Z79.84 Long term (current) use of oral hypoglycemic drugs; Z79.899 Other long term (current) drug therapy; Z96.651 Presence of right artificial knee joint; Z85.038 Personal history of other malignant neoplasm of large intestine
CPT/HCPCS: 70450; 71045; 74176; 80053; 81003; 81015; 82330; 82553; 82803; 83605; 83735; 84443; 84484; 85610; 85730; 87040; 87086; 93005; 94760; J0692; J2185; J3370; J3430; J3490; J7050; J7120

== ENCOUNTER 2022-05-24 13:34 | Inpatient (IN) | payer MEDICARE ==
[2022-05-24] MEDS ORDERED: Ondansetron ODT 4 MG TAB PO PRN (18:01)
[2022-05-24] MEDS ORDERED: Bisacodyl 5 MG TAB PO PRN ×2 (18:01→18:11)
[2022-05-24] MEDS ORDERED: Calcium Carbonate 500 MG ChewTAB PO PRN (18:01)
[2022-05-24] MEDS ORDERED: Senokot S 8.6-50 MG TAB PO PRN (18:01)
[2022-05-24] MEDS ORDERED: Fluticasone Propionate Nasal Spray 16 gm Bottle NASAL PRN (18:11)
[2022-05-24] MEDS ORDERED: Acetaminophen ER (8hr) 650 MG TAB PO PRN (18:11)
[2022-05-24] MEDS ORDERED: Artificial Tear Sol 15 ML BOT EA EYE PRN (18:11)
[2022-05-24] MEDS ORDERED: HumaLOG 300 UNITS/3 ML VIAL SC PRN ×2 (18:11→19:45)
[2022-05-24] MEDS ORDERED: [UNRECOGNIZED DRUG - MIXTURE] TOP PRN (19:37)
[2022-05-24] MEDS ORDERED: Dextrose 50% Abboject 50 ML SYRINGE IVP PRN (19:45)
[2022-05-24] MEDS ORDERED: Dextrose 5% in Water 1,000 ML IV PRN (19:45)
[2022-05-24] MEDS: HYDROcodone/Acetaminophen 5/325 mg Tablet PO PRN (20:51)
[2022-05-24] MEDS: Atorvastatin Calcium 40 MG TAB PO SCH (20:51)
[2022-05-24] MEDS: Tamsulosin HCl 0.4 MG CAP PO SCH (20:51)
[2022-05-24] MEDS: Metoprolol Tartrate 25 MG TAB PO SCH (20:51)
[2022-05-24] MEDS: Brimonidine Tartrate 0.2% Ophth Soln 5 ml Bottle R EYE SCH (20:51)
[2022-05-24] MEDS: Lantus 1000 UNITS/10 ML VIAL SC SCH (20:59)
[2022-05-24] MEDS: Budesonide/Glycopyr/Formoterol [Breztri Aerosphere Inhaler] INH SCH (21:01)
[2022-05-25] MEDS: Cepastat Lozenges 1 LOZ PO PRN (00:34)
[2022-05-25] MEDS: Benzonatate 100 MG CAP PO PRN ×2 (00:36→20:02)
[2022-05-25] MEDS: Cholecalciferol 1,000 UNITS (25 MCG) TAB PO SCH (08:08)
[2022-05-25] MEDS: Metoprolol Tartrate 25 MG TAB PO SCH ×2 (08:09→20:02)
[2022-05-25] MEDS: Allopurinol 100 MG TAB PO SCH (08:09)
[2022-05-25] MEDS: Cyanocobalamin (Vitamin B-12) 1,000 MCG TAB PO SCH (08:09)
[2022-05-25] MEDS: Lantiseptic Ointment 130 GM JAR TOP SCH ×2 (08:09→20:04)
[2022-05-25] MEDS: Dronabinol 2.5 MG CAP PO SCH ×2 (08:10→16:57)
[2022-05-25] MEDS: Brimonidine Tartrate 0.2% Ophth Soln 5 ml Bottle R EYE SCH ×3 (08:14→20:02)
[2022-05-25] MEDS: Budesonide/Glycopyr/Formoterol [Breztri Aerosphere Inhaler] INH SCH ×2 (08:14→20:12)
[2022-05-25] MEDS: HYDROcodone/Acetaminophen 5/325 mg Tablet PO PRN ×2 (13:03→20:01)
[2022-05-25] MEDS: Polyethylene Glycol 3350 17 GM Packet PO SCH (15:27)
[2022-05-25] MEDS: Tamsulosin HCl 0.4 MG CAP PO SCH (20:02)
[2022-05-25] MEDS: Atorvastatin Calcium 40 MG TAB PO SCH (20:02)
[2022-05-25] MEDS: Lantus 1000 UNITS/10 ML VIAL SC SCH (20:09)
[2022-05-26] MEDS: Cepastat Lozenges 1 LOZ PO PRN ×2 (01:40→05:18)
[2022-05-26] MEDS: Acetaminophen 325 MG TAB PO PRN (01:40)
[2022-05-26] MEDS: HYDROcodone/Acetaminophen 5/325 mg Tablet PO PRN (05:18)
[2022-05-26] MEDS: Benzonatate 100 MG CAP PO PRN ×2 (05:19→21:20)
[2022-05-26] MEDS: Cyanocobalamin (Vitamin B-12) 1,000 MCG TAB PO SCH (08:14)
[2022-05-26] MEDS: Dronabinol 2.5 MG CAP PO SCH ×2 (08:14→16:18)
[2022-05-26] MEDS: Metoprolol Tartrate 25 MG TAB PO SCH ×2 (08:14→21:20)
[2022-05-26] MEDS: Brimonidine Tartrate 0.2% Ophth Soln 5 ml Bottle R EYE SCH ×3 (08:14→21:20)
[2022-05-26] MEDS: Allopurinol 100 MG TAB PO SCH (08:14)
[2022-05-26] MEDS: Lantiseptic Ointment 130 GM JAR TOP SCH ×2 (08:15→21:21)
[2022-05-26] MEDS: EPOETIN ALFA-EPBX (ESRD) 10,000 UNIT/ML VIAL SC SCH (08:15)
[2022-05-26] MEDS: Budesonide/Glycopyr/Formoterol [Breztri Aerosphere Inhaler] INH SCH ×2 (08:17→21:19)
[2022-05-26] MEDS: Polyethylene Glycol 3350 17 GM Packet PO SCH (15:36)
[2022-05-26] MEDS: Tamsulosin HCl 0.4 MG CAP PO SCH (21:20)
[2022-05-26] MEDS: Atorvastatin Calcium 40 MG TAB PO SCH (21:20)
[2022-05-26] MEDS: Lantus 1000 UNITS/10 ML VIAL SC SCH (21:20)
[2022-05-26] MEDS: Triple Antibiotic Oint 1 GM Packet TOP PRN (21:40)
[2022-05-27] MEDS: HYDROcodone/Acetaminophen 5/325 mg Tablet PO PRN ×2 (06:02→15:00)
[2022-05-27] MEDS ORDERED: Budesonide 0.5 MG/2 ML NEB ONE (07:22)
[2022-05-27] MEDS: Dronabinol 2.5 MG CAP PO SCH ×2 (07:55→16:47)
[2022-05-27] MEDS: Lantiseptic Ointment 130 GM JAR TOP SCH ×2 (07:58→20:44)
[2022-05-27] MEDS: Metoprolol Tartrate 25 MG TAB PO SCH ×2 (07:59→20:42)
[2022-05-27] MEDS: Cyanocobalamin (Vitamin B-12) 1,000 MCG TAB PO SCH (07:59)
[2022-05-27] MEDS: Allopurinol 100 MG TAB PO SCH (07:59)
[2022-05-27] MEDS: Cholecalciferol 1,000 UNITS (25 MCG) TAB PO SCH (08:00)
[2022-05-27] MEDS: Brimonidine Tartrate 0.2% Ophth Soln 5 ml Bottle R EYE SCH ×3 (08:00→20:43)
[2022-05-27] MEDS: Budesonide/Glycopyr/Formoterol [Breztri Aerosphere Inhaler] INH SCH ×2 (08:02→20:44)
[2022-05-27] MEDS: Triple Antibiotic Oint 1 GM Packet TOP PRN ×2 (10:10→15:15)
[2022-05-27] MEDS: Polyethylene Glycol 3350 17 GM Packet PO SCH (15:00)
[2022-05-27] MEDS: Lantus 1000 UNITS/10 ML VIAL SC SCH (20:40)
[2022-05-27] MEDS: Atorvastatin Calcium 40 MG TAB PO SCH (20:42)
[2022-05-27] MEDS: Tamsulosin HCl 0.4 MG CAP PO SCH (20:42)
[2022-05-27] MEDS: Acetaminophen 325 MG TAB PO PRN (20:45)
[2022-05-28] MEDS: Brimonidine Tartrate 0.2% Ophth Soln 5 ml Bottle R EYE SCH ×3 (08:06→21:07)
[2022-05-28] MEDS: Cyanocobalamin (Vitamin B-12) 1,000 MCG TAB PO SCH (08:07)
[2022-05-28] MEDS: Allopurinol 100 MG TAB PO SCH (08:07)
[2022-05-28] MEDS: Metoprolol Tartrate 25 MG TAB PO SCH ×2 (08:07→21:07)
[2022-05-28] MEDS: Cholecalciferol 1,000 UNITS (25 MCG) TAB PO SCH (08:07)
[2022-05-28] MEDS: Lantiseptic Ointment 130 GM JAR TOP SCH (08:08)
[2022-05-28] MEDS: Dronabinol 2.5 MG CAP PO SCH ×2 (08:09→16:52)
[2022-05-28] MEDS: Budesonide/Glycopyr/Formoterol [Breztri Aerosphere Inhaler] INH SCH ×2 (08:10→21:15)
[2022-05-28] MEDS: Triple Antibiotic Oint 1 GM Packet TOP PRN (08:26)
[2022-05-28] MEDS: Benzonatate 100 MG CAP PO PRN (12:06)
[2022-05-28] MEDS: Polyethylene Glycol 3350 17 GM Packet PO SCH (14:11)
[2022-05-28] MEDS: HYDROcodone/Acetaminophen 5/325 mg Tablet PO PRN ×2 (16:55→21:29)
[2022-05-28] MEDS: Atorvastatin Calcium 40 MG TAB PO SCH (21:07)
[2022-05-28] MEDS: Tamsulosin HCl 0.4 MG CAP PO SCH (21:07)
[2022-05-28] MEDS: Lantus 1000 UNITS/10 ML VIAL SC SCH (21:09)
[2022-05-29] MEDS: HYDROcodone/Acetaminophen 5/325 mg Tablet PO PRN ×2 (01:37→21:52)
[2022-05-29] MEDS: Lantiseptic Ointment 130 GM JAR TOP SCH ×3 (06:58→23:53)
[2022-05-29] MEDS: Cholecalciferol 1,000 UNITS (25 MCG) TAB PO SCH (08:02)
[2022-05-29] MEDS: Allopurinol 100 MG TAB PO SCH (08:02)
[2022-05-29] MEDS: Brimonidine Tartrate 0.2% Ophth Soln 5 ml Bottle R EYE SCH ×3 (08:02→21:50)
[2022-05-29] MEDS: Dronabinol 2.5 MG CAP PO SCH ×2 (08:02→16:40)
[2022-05-29] MEDS: Metoprolol Tartrate 25 MG TAB PO SCH ×2 (08:02→21:52)
[2022-05-29] MEDS: Cyanocobalamin (Vitamin B-12) 1,000 MCG TAB PO SCH (08:02)
[2022-05-29] MEDS: Benzonatate 100 MG CAP PO PRN (08:03)
[2022-05-29] MEDS: Budesonide/Glycopyr/Formoterol [Breztri Aerosphere Inhaler] INH SCH ×2 (08:03→21:59)
[2022-05-29] MEDS: Triple Antibiotic Oint 1 GM Packet TOP PRN (08:10)
[2022-05-29] MEDS: Polyethylene Glycol 3350 17 GM Packet PO SCH (14:17)
[2022-05-29] MEDS: Atorvastatin Calcium 40 MG TAB PO SCH (21:52)
[2022-05-29] MEDS: Tamsulosin HCl 0.4 MG CAP PO SCH (21:52)
[2022-05-29] MEDS: Lantus 1000 UNITS/10 ML VIAL SC SCH (21:53)
[2022-05-30] MEDS: HYDROcodone/Acetaminophen 5/325 mg Tablet PO PRN ×3 (04:01→14:27)
[2022-05-30 05:21] LABS: Anion Gap 12 mmol/L (10-20); BUN (Urea Nitrogen) 29 mg/dL (8.4-25.7); Calc. Creatinine Clearance 61 mL/min (70-130); Calcium 8.2 mg/dL (7.8-10.44); Carbon Dioxide 20 mmol/L (23-31); Chloride 108 mmol/L (98-107); Estimated GFR 63; Glucose 109 mg/dL (83-110); Potassium 4.5 mmol/L (3.5-5.1); Sodium 135 mmol/L (136-145)
[2022-05-30 05:29] LABS: #Eosinphils 0.6 thou/uL (0.0-0.7); #Lymphocytes 1.1 thou/uL (1.20-3.40); #Monocytes 0.5 thou/uL (0.11-0.59); %Basophils 0.7 % (0.0-1.0); %Eosinophils 8.9 % (0.0-10.0); %Monocytes 8.3 % (0.0-10.0); %Neutrophils 64.2 % (42.0-75.0); Hypochromia SLIGHT = 6-15 cells (100X) (0-5/hpf); MDiff Complete? YES; Mean Corpuscular Hemoglobin 27.7 pg (27.0-31.0); Mean Corpuscular Volume 89.4 fL (78.0-98.0); Mean Platelet Volume 7.6 fL (7.4-10.4); Microcytosis SLIGHT = 6-15 cells (100X) (0-5/hpf); Platelet Count 295 thou/uL (130-400); RBC Distribution Width 21.9 % (11.5-14.5); Red Blood Cell (RBC) Count 2.89 mill/uL (4.70-6.10); White Blood Cell (WBC) Count 6.2 thou/uL (4.8-10.8)
[2022-05-30] MEDS: Cholecalciferol 1,000 UNITS (25 MCG) TAB PO SCH (08:01)
[2022-05-30] MEDS: Cyanocobalamin (Vitamin B-12) 1,000 MCG TAB PO SCH (08:01)
[2022-05-30] MEDS: Metoprolol Tartrate 25 MG TAB PO SCH ×2 (08:02→20:47)
[2022-05-30] MEDS: Allopurinol 100 MG TAB PO SCH (08:02)
[2022-05-30] MEDS: Dronabinol 2.5 MG CAP PO SCH ×2 (08:02→17:01)
[2022-05-30] MEDS: Brimonidine Tartrate 0.2% Ophth Soln 5 ml Bottle R EYE SCH ×3 (08:03→20:50)
[2022-05-30] MEDS: Budesonide/Glycopyr/Formoterol [Breztri Aerosphere Inhaler] INH SCH (08:03)
[2022-05-30] MEDS: Lantiseptic Ointment 130 GM JAR TOP SCH ×2 (08:04→20:50)
[2022-05-30] MEDS: Polyethylene Glycol 3350 17 GM Packet PO SCH (14:27)
[2022-05-30] MEDS: Benzonatate 100 MG CAP PO PRN (20:47)
[2022-05-30] MEDS: Tamsulosin HCl 0.4 MG CAP PO SCH (20:47)
[2022-05-30] MEDS: Atorvastatin Calcium 40 MG TAB PO SCH (20:47)
[2022-05-30] MEDS: Cepastat Lozenges 1 LOZ PO PRN (20:47)
[2022-05-30] MEDS: Acetaminophen 325 MG TAB PO PRN (20:47)
[2022-05-30] MEDS: Mometasone/Formoterol 200/5 60 PUFF INH SCH (20:54)
[2022-05-30] MEDS: Lantus 1000 UNITS/10 ML VIAL SC SCH (20:58)
[2022-05-30] MEDS: Triple Antibiotic Oint 1 GM Packet TOP PRN (21:01)
[2022-05-31 00:19] LABS: Bilirubin Negative (Negative); Blood, Urine Large (Negative); Glucose, Urine (Dipstick) Negative (Negative); Ketone, Urine Negative (Negative); Leukocyte Small (Negative); Nitrite Negative (Negative); Protein, Urine (Dipstick) > or equal to 300 mg/dL (Neg-Trace); Urobilinogen 0.2 mg/dL (Less than 2)
[2022-05-31 00:23] LABS: Bacteria/HPF Rare-Few HPF (None Seen); Clarity Cloudy (Clear); RBC/HPF Greater than 50 HPF (0-3); WBC/HPF 21-50 HPF (0-3)
[2022-05-31 00:24] LABS: Urine Culture Reflex No No
[2022-05-31] MEDS: HYDROcodone/Acetaminophen 5/325 mg Tablet PO PRN ×4 (05:52→20:57)
[2022-05-31] MEDS: Dronabinol 2.5 MG CAP PO SCH ×2 (08:06→16:10)
[2022-05-31] MEDS: Allopurinol 100 MG TAB PO SCH (08:06)
[2022-05-31] MEDS: Cholecalciferol 1,000 UNITS (25 MCG) TAB PO SCH (08:06)
[2022-05-31] MEDS: Metoprolol Tartrate 25 MG TAB PO SCH ×2 (08:06→20:58)
[2022-05-31] MEDS: Lantiseptic Ointment 130 GM JAR TOP SCH ×2 (08:07→20:55)
[2022-05-31] MEDS: Cyanocobalamin (Vitamin B-12) 1,000 MCG TAB PO SCH (08:07)
[2022-05-31] MEDS: Brimonidine Tartrate 0.2% Ophth Soln 5 ml Bottle R EYE SCH ×3 (08:07→20:56)
[2022-05-31] MEDS: Mometasone/Formoterol 200/5 60 PUFF INH SCH ×2 (08:07→20:59)
[2022-05-31] MEDS: Polyethylene Glycol 3350 17 GM Packet PO SCH (15:48)
[2022-05-31] MEDS: Triple Antibiotic Oint 1 GM Packet TOP PRN (20:56)
[2022-05-31] MEDS: Atorvastatin Calcium 40 MG TAB PO SCH (20:58)
[2022-05-31] MEDS: Tamsulosin HCl 0.4 MG CAP PO SCH (20:58)
[2022-05-31] MEDS: Lantus 1000 UNITS/10 ML VIAL SC SCH (20:58)
[2022-05-31] MEDS: Cepastat Lozenges 1 LOZ PO PRN (20:58)
[2022-05-31] MEDS: Benzonatate 100 MG CAP PO PRN (20:58)
[2022-06-01] MEDS ORDERED: cefTRIAXone\\ROCEPHIN 500 MG VIAL ONE (00:33)
[2022-06-01] MEDS ORDERED: cefTRIAXone\\ROCEPHIN 1 GM VIAL ONE (00:35)
[2022-06-01 02:29] VITALS: BMI 27.6
[2022-06-01] MEDS: Dronabinol 2.5 MG CAP PO SCH ×2 (08:31→16:10)
[2022-06-01] MEDS: Allopurinol 100 MG TAB PO SCH (08:46)
[2022-06-01] MEDS: Cyanocobalamin (Vitamin B-12) 1,000 MCG TAB PO SCH (08:46)
[2022-06-01] MEDS: Cholecalciferol 1,000 UNITS (25 MCG) TAB PO SCH (08:46)
[2022-06-01] MEDS: Metoprolol Tartrate 25 MG TAB PO SCH ×2 (08:46→21:08)
[2022-06-01] MEDS: Brimonidine Tartrate 0.2% Ophth Soln 5 ml Bottle R EYE SCH ×3 (08:46→21:08)
[2022-06-01] MEDS: Mometasone/Formoterol 200/5 60 PUFF INH SCH ×2 (08:47→21:15)
[2022-06-01] MEDS: Benzonatate 100 MG CAP PO PRN ×2 (08:51→21:20)
[2022-06-01] MEDS: HYDROcodone/Acetaminophen 5/325 mg Tablet PO PRN ×2 (08:51→16:14)
[2022-06-01] MEDS: Polyethylene Glycol 3350 17 GM Packet PO SCH (15:02)
[2022-06-01] MEDS: Atorvastatin Calcium 40 MG TAB PO SCH (21:08)
[2022-06-01] MEDS: Acetaminophen 325 MG TAB PO PRN (21:08)
[2022-06-01] MEDS: Tamsulosin HCl 0.4 MG CAP PO SCH (21:08)
[2022-06-01] MEDS: Lantus 1000 UNITS/10 ML VIAL SC SCH (21:09)
[2022-06-01] MEDS: Triple Antibiotic Oint 1 GM Packet TOP PRN (21:17)
[2022-06-01] MEDS: Cepastat Lozenges 1 LOZ PO PRN (21:21)
[2022-06-02] MEDS: HYDROcodone/Acetaminophen 5/325 mg Tablet PO PRN ×3 (03:51→22:39)
[2022-06-02] MEDS: Dronabinol 2.5 MG CAP PO SCH ×2 (08:06→17:03)
[2022-06-02] MEDS: Mometasone/Formoterol 200/5 60 PUFF INH SCH ×2 (09:14→20:33)
[2022-06-02] MEDS: Brimonidine Tartrate 0.2% Ophth Soln 5 ml Bottle R EYE SCH ×4 (09:16→20:33)
[2022-06-02] MEDS: Cyanocobalamin (Vitamin B-12) 1,000 MCG TAB PO SCH (09:17)
[2022-06-02] MEDS: Metoprolol Tartrate 25 MG TAB PO SCH ×2 (09:17→20:34)
[2022-06-02] MEDS: Allopurinol 100 MG TAB PO SCH (09:17)
[2022-06-02] MEDS: Cholecalciferol 1,000 UNITS (25 MCG) TAB PO SCH (09:17)
[2022-06-02] MEDS: EPOETIN ALFA-EPBX (ESRD) 10,000 UNIT/ML VIAL SC SCH (09:20)
[2022-06-02] MEDS: Polyethylene Glycol 3350 17 GM Packet PO SCH ×2 (15:42→17:04)
[2022-06-02] MEDS: Atorvastatin Calcium 40 MG TAB PO SCH (20:34)
[2022-06-02] MEDS: Benzonatate 100 MG CAP PO PRN (20:34)
[2022-06-02] MEDS: Tamsulosin HCl 0.4 MG CAP PO SCH (20:34)
[2022-06-02] MEDS: Acetaminophen 325 MG TAB PO PRN (20:35)
[2022-06-02] MEDS: Lantus 1000 UNITS/10 ML VIAL SC SCH (20:35)
[2022-06-03] MEDS: HYDROcodone/Acetaminophen 5/325 mg Tablet PO PRN ×2 (07:54→21:33)
[2022-06-03] MEDS: Dronabinol 2.5 MG CAP PO SCH ×2 (07:55→17:13)
[2022-06-03] MEDS: Mometasone/Formoterol 200/5 60 PUFF INH SCH ×2 (07:57→21:31)
[2022-06-03] MEDS: Metoprolol Tartrate 25 MG TAB PO SCH ×2 (08:01→21:30)
[2022-06-03] MEDS: Cholecalciferol 1,000 UNITS (25 MCG) TAB PO SCH (08:01)
[2022-06-03] MEDS: Cyanocobalamin (Vitamin B-12) 1,000 MCG TAB PO SCH (08:01)
[2022-06-03] MEDS: Allopurinol 100 MG TAB PO SCH (08:01)
[2022-06-03] MEDS: Brimonidine Tartrate 0.2% Ophth Soln 5 ml Bottle R EYE SCH ×3 (08:03→21:31)
[2022-06-03] MEDS: Polyethylene Glycol 3350 17 GM Packet PO SCH (14:27)
[2022-06-03] MEDS: Acetaminophen 325 MG TAB PO PRN (17:13)
[2022-06-03 19:24] LABS: #Eosinphils 0.4 thou/uL (0.0-0.7); #Lymphocytes 1.2 thou/uL (1.20-3.40); #Monocytes 0.8 thou/uL (0.11-0.59); #Neutrophils 6.9 thou/uL (1.40-6.50); %Basophils 0.3 % (0.0-1.0); %Eosinophils 4.2 % (0.0-10.0); %Lymphocytes 13.1 % (21.0-51.0); %Monocytes 8.4 % (0.0-10.0); Anion Gap 12 mmol/L (10-20); Anisocytosis SLIGHT = 6-15 cells (100X) (0-5/hpf); BUN (Urea Nitrogen) 40 mg/dL (8.4-25.7); Calc. Creatinine Clearance 55 mL/min (70-130); Calcium 8.2 mg/dL (7.8-10.44); Carbon Dioxide 19 mmol/L (23-31); Chloride 108 mmol/L (98-107); Estimated GFR 55; Glucose 167 mg/dL (83-110); Hemoglobin 7.8 g/dL (14.0-18.0); Hypochromia SLIGHT = 6-15 cells (100X) (0-5/hpf); MDiff Complete? YES; Mean Corpuscular HGB CONC 31.1 g/dL (32.0-36.0); Mean Platelet Volume 7.1 fL (7.4-10.4); Platelet Count 290 thou/uL (130-400); Platelet Morphology Comment Appears Adequate; Potassium 5.2 mmol/L (3.5-5.1); Red Blood Cell (RBC) Count 2.79 mill/uL (4.70-6.10); Sodium 134 mmol/L (136-145); White Blood Cell (WBC) Count 9.3 thou/uL (4.8-10.8)
[2022-06-03 20:00] LABS: Bilirubin Negative (Negative); Blood, Urine Moderate (Negative); Clarity Cloudy (Clear); Glucose, Urine (Dipstick) Negative (Negative); Ketone, Urine Negative (Negative); Leukocyte Small (Negative); Nitrite Positive (Negative); Protein, Urine (Dipstick) > or equal to 300 mg/dL (Neg-Trace); Specific Gravity, Urine 1.015 (1.005-1.030); Urobilinogen 0.2 mg/dL (Less than 2)
[2022-06-03 20:04] LABS: Bacteria/HPF 1+ HPF (None Seen); RBC/HPF 0-3 HPF (0-3); Squamous Epithelial None Seen HPF (0-3); Transitional Epithelial 0-3 HPF (None Seen); WBC/HPF Greater Than 50 HPF (0-3)
[2022-06-03 20:05] LABS: Urine Culture Reflex Yes Yes
[2022-06-03] MEDS: Benzonatate 100 MG CAP PO PRN (21:30)
[2022-06-03] MEDS: Atorvastatin Calcium 40 MG TAB PO SCH (21:30)
[2022-06-03] MEDS: Tamsulosin HCl 0.4 MG CAP PO SCH (21:30)
[2022-06-03] MEDS: Lantus 1000 UNITS/10 ML VIAL SC SCH (21:30)
[2022-06-03] MEDS ORDERED: Ciprofloxacin 500 MG TAB PO SCH (23:15)
[2022-06-04] MEDS: Ciprofloxacin 500 MG TAB PO SCH ×2 (05:28→20:15)
[2022-06-04] MEDS: Metoprolol Tartrate 25 MG TAB PO SCH ×2 (08:08→20:15)
[2022-06-04] MEDS: Dronabinol 2.5 MG CAP PO SCH ×2 (08:08→16:51)
[2022-06-04] MEDS: Brimonidine Tartrate 0.2% Ophth Soln 5 ml Bottle R EYE SCH ×3 (08:08→20:14)
[2022-06-04] MEDS: Cholecalciferol 1,000 UNITS (25 MCG) TAB PO SCH (08:08)
[2022-06-04] MEDS: Cyanocobalamin (Vitamin B-12) 1,000 MCG TAB PO SCH (08:08)
[2022-06-04] MEDS: Mometasone/Formoterol 200/5 60 PUFF INH SCH ×2 (08:09→20:13)
[2022-06-04] MEDS: Allopurinol 100 MG TAB PO SCH (08:10)
[2022-06-04] MEDS: Polyethylene Glycol 3350 17 GM Packet PO SCH (15:13)
[2022-06-04] MEDS: HYDROcodone/Acetaminophen 5/325 mg Tablet PO PRN (20:15)
[2022-06-04] MEDS: Atorvastatin Calcium 40 MG TAB PO SCH (20:15)
[2022-06-04] MEDS: Tamsulosin HCl 0.4 MG CAP PO SCH (20:15)
[2022-06-04] MEDS: Lantus 1000 UNITS/10 ML VIAL SC SCH (20:15)
[2022-06-05] MEDS: Ciprofloxacin 500 MG TAB PO SCH ×2 (05:21→21:00)
[2022-06-05] MEDS: HYDROcodone/Acetaminophen 5/325 mg Tablet PO PRN (05:21)
[2022-06-05] MEDS: Dronabinol 2.5 MG CAP PO SCH ×2 (07:52→16:35)
[2022-06-05] MEDS ORDERED: Benzocaine (Dental) 7 GM TUBE TOP PRN (07:54)
[2022-06-05] MEDS: Brimonidine Tartrate 0.2% Ophth Soln 5 ml Bottle R EYE SCH ×3 (07:55→20:58)
[2022-06-05] MEDS: Mometasone/Formoterol 200/5 60 PUFF INH SCH ×2 (07:55→21:00)
[2022-06-05] MEDS: Cyanocobalamin (Vitamin B-12) 1,000 MCG TAB PO SCH (07:59)
[2022-06-05] MEDS: Metoprolol Tartrate 25 MG TAB PO SCH ×2 (07:59→20:59)
[2022-06-05] MEDS: Cholecalciferol 1,000 UNITS (25 MCG) TAB PO SCH (07:59)
[2022-06-05] MEDS: Allopurinol 100 MG TAB PO SCH (07:59)
[2022-06-05] MEDS: Acetaminophen 325 MG TAB PO PRN (15:35)
[2022-06-05] MEDS: Polyethylene Glycol 3350 17 GM Packet PO SCH (15:35)
[2022-06-05] MEDS: Atorvastatin Calcium 40 MG TAB PO SCH (20:59)
[2022-06-05] MEDS: Tamsulosin HCl 0.4 MG CAP PO SCH (20:59)
[2022-06-05] MEDS: Lantus 1000 UNITS/10 ML VIAL SC SCH (21:02)
[2022-06-06] MEDS: Ciprofloxacin 500 MG TAB PO SCH (06:02)
[2022-06-06] MEDS: Dronabinol 2.5 MG CAP PO SCH ×2 (07:53→16:38)
[2022-06-06] MEDS: Cholecalciferol 1,000 UNITS (25 MCG) TAB PO SCH (07:59)
[2022-06-06] MEDS: Allopurinol 100 MG TAB PO SCH (07:59)
[2022-06-06] MEDS: Brimonidine Tartrate 0.2% Ophth Soln 5 ml Bottle R EYE SCH ×3 (08:00→20:33)
[2022-06-06] MEDS: Cyanocobalamin (Vitamin B-12) 1,000 MCG TAB PO SCH (08:00)
[2022-06-06] MEDS: Metoprolol Tartrate 25 MG TAB PO SCH ×2 (08:01→20:07)
[2022-06-06] MEDS: Mometasone/Formoterol 200/5 60 PUFF INH SCH ×2 (08:01→20:32)
[2022-06-06] MEDS: HYDROcodone/Acetaminophen 5/325 mg Tablet PO PRN ×2 (10:09→20:34)
[2022-06-06] MEDS: Acetaminophen 325 MG TAB PO PRN (14:17)
[2022-06-06] MEDS: Polyethylene Glycol 3350 17 GM Packet PO SCH (14:17)
[2022-06-06] MEDS: Cefepime 1 GM in Sodium Chloride 0.9% 100 ML IVPB SCH (20:32)
[2022-06-06] MEDS: Tamsulosin HCl 0.4 MG CAP PO SCH (20:34)
[2022-06-06] MEDS: Atorvastatin Calcium 40 MG TAB PO SCH (20:34)
[2022-06-06] MEDS: Lantus 1000 UNITS/10 ML VIAL SC SCH (20:49)
[2022-06-07] MEDS: HYDROcodone/Acetaminophen 5/325 mg Tablet PO PRN ×4 (04:10→21:03)
[2022-06-07] MEDS: Dronabinol 2.5 MG CAP PO SCH ×2 (07:30→16:57)
[2022-06-07] MEDS: Acetaminophen 325 MG TAB PO PRN (07:30)
[2022-06-07] MEDS: Cholecalciferol 1,000 UNITS (25 MCG) TAB PO SCH (08:22)
[2022-06-07] MEDS: Allopurinol 100 MG TAB PO SCH (08:22)
[2022-06-07] MEDS: Cyanocobalamin (Vitamin B-12) 1,000 MCG TAB PO SCH (08:22)
[2022-06-07] MEDS: Brimonidine Tartrate 0.2% Ophth Soln 5 ml Bottle R EYE SCH ×3 (08:23→21:14)
[2022-06-07] MEDS: Cefepime 1 GM in Sodium Chloride 0.9% 100 ML IVPB SCH ×2 (08:23→21:06)
[2022-06-07] MEDS: Mometasone/Formoterol 200/5 60 PUFF INH SCH ×2 (08:23→21:14)
[2022-06-07] MEDS: Metoprolol Tartrate 25 MG TAB PO SCH ×2 (08:24→21:05)
[2022-06-07] MEDS: Polyethylene Glycol 3350 17 GM Packet PO SCH (15:34)
[2022-06-07] MEDS: Lantus 1000 UNITS/10 ML VIAL SC SCH (21:05)
[2022-06-07] MEDS: Tamsulosin HCl 0.4 MG CAP PO SCH (21:05)
[2022-06-07] MEDS: Atorvastatin Calcium 40 MG TAB PO SCH (21:05)
[2022-06-07] MEDS: Benzonatate 100 MG CAP PO PRN (21:19)
[2022-06-07] MEDS: Cepastat Lozenges 1 LOZ PO PRN (21:19)
[2022-06-08] MEDS: HYDROcodone/Acetaminophen 5/325 mg Tablet PO PRN ×2 (06:35→18:21)
[2022-06-08] MEDS ORDERED: Dronabinol 2.5 MG CAP PO SCH (08:15)
[2022-06-08] MEDS: Cefepime 1 GM in Sodium Chloride 0.9% 100 ML IVPB SCH ×2 (08:19→20:19)
[2022-06-08] MEDS: Cyanocobalamin (Vitamin B-12) 1,000 MCG TAB PO SCH (08:19)
[2022-06-08] MEDS: Metoprolol Tartrate 25 MG TAB PO SCH ×2 (08:19→20:16)
[2022-06-08] MEDS: Allopurinol 100 MG TAB PO SCH (08:19)
[2022-06-08] MEDS: Cholecalciferol 1,000 UNITS (25 MCG) TAB PO SCH (08:19)
[2022-06-08] MEDS: Mometasone/Formoterol 200/5 60 PUFF INH SCH ×2 (08:22→20:16)
[2022-06-08] MEDS: Brimonidine Tartrate 0.2% Ophth Soln 5 ml Bottle R EYE SCH ×3 (08:22→20:16)
[2022-06-08] MEDS: Dronabinol 2.5 MG CAP PO SCH ×2 (08:34→16:53)
[2022-06-08] MEDS: Acetaminophen 325 MG TAB PO PRN (14:29)
[2022-06-08] MEDS: Polyethylene Glycol 3350 17 GM Packet PO SCH (14:30)
[2022-06-08] MEDS: Atorvastatin Calcium 40 MG TAB PO SCH (20:16)
[2022-06-08] MEDS: Tamsulosin HCl 0.4 MG CAP PO SCH (20:16)
[2022-06-08] MEDS: Cepastat Lozenges 1 LOZ PO PRN (20:16)
[2022-06-08] MEDS: Benzonatate 100 MG CAP PO PRN (20:16)
[2022-06-08] MEDS: Lantus 1000 UNITS/10 ML VIAL SC SCH (20:49)
[2022-06-09] MEDS: Dronabinol 2.5 MG CAP PO SCH ×2 (07:32→16:46)
[2022-06-09] MEDS: HYDROcodone/Acetaminophen 5/325 mg Tablet PO PRN ×2 (07:32→21:16)
[2022-06-09] MEDS: Cefepime 1 GM in Sodium Chloride 0.9% 100 ML IVPB SCH ×2 (08:29→21:11)
[2022-06-09] MEDS: Cholecalciferol 1,000 UNITS (25 MCG) TAB PO SCH (08:35)
[2022-06-09] MEDS: Metoprolol Tartrate 25 MG TAB PO SCH ×2 (08:36→21:13)
[2022-06-09] MEDS: Cyanocobalamin (Vitamin B-12) 1,000 MCG TAB PO SCH (08:36)
[2022-06-09] MEDS: Allopurinol 100 MG TAB PO SCH (08:36)
[2022-06-09] MEDS: Brimonidine Tartrate 0.2% Ophth Soln 5 ml Bottle R EYE SCH ×3 (08:36→21:11)
[2022-06-09] MEDS: Mometasone/Formoterol 200/5 60 PUFF INH SCH ×2 (08:37→21:13)
[2022-06-09] MEDS: EPOETIN ALFA-EPBX (ESRD) 10,000 UNIT/ML VIAL SC SCH (08:47)
[2022-06-09] MEDS: Polyethylene Glycol 3350 17 GM Packet PO SCH (15:43)
[2022-06-09] MEDS: Atorvastatin Calcium 40 MG TAB PO SCH (21:11)
[2022-06-09] MEDS: Lantus 1000 UNITS/10 ML VIAL SC SCH (21:12)
[2022-06-09] MEDS: Tamsulosin HCl 0.4 MG CAP PO SCH (21:14)
[2022-06-09] MEDS: Benzonatate 100 MG CAP PO PRN (21:16)
[2022-06-10 05:01] LABS: #Eosinphils 0.5 thou/uL (0.0-0.7); #Lymphocytes 1.1 thou/uL (1.20-3.40); #Monocytes 0.7 thou/uL (0.11-0.59); %Basophils 0.5 % (0.0-1.0); %Eosinophils 5.6 % (0.0-10.0); %Lymphocytes 13.1 % (21.0-51.0); %Monocytes 8.7 % (0.0-10.0); %Neutrophils 72.1 % (42.0-75.0); Hemoglobin 7.9 g/dL (14.0-18.0); Mean Corpuscular HGB CONC 31.4 g/dL (32.0-36.0); Mean Corpuscular Hemoglobin 28.2 pg (27.0-31.0); Mean Corpuscular Volume 89.9 fL (78.0-98.0); Mean Platelet Volume 6.6 fL (7.4-10.4); Platelet Count 353 thou/uL (130-400); White Blood Cell (WBC) Count 8.3 thou/uL (4.8-10.8)
[2022-06-10 05:17] LABS: Anion Gap 13 mmol/L (10-20); BUN (Urea Nitrogen) 69 mg/dL (8.4-25.7); Calc. Creatinine Clearance 48 mL/min (70-130); Calcium 8.8 mg/dL (7.8-10.44); Carbon Dioxide 18 mmol/L (23-31); Chloride 111 mmol/L (98-107); Estimated GFR 47; Glucose 154 mg/dL (83-110); Potassium 4.6 mmol/L (3.5-5.1); Sodium 137 mmol/L (136-145)
[2022-06-10] MEDS: Mometasone/Formoterol 200/5 60 PUFF INH SCH ×2 (08:21→22:06)
[2022-06-10] MEDS: Dronabinol 2.5 MG CAP PO SCH (08:22)
[2022-06-10] MEDS: HYDROcodone/Acetaminophen 5/325 mg Tablet PO PRN ×2 (08:22→15:37)
[2022-06-10] MEDS: Cyanocobalamin (Vitamin B-12) 1,000 MCG TAB PO SCH (08:22)
[2022-06-10] MEDS: Brimonidine Tartrate 0.2% Ophth Soln 5 ml Bottle R EYE SCH ×3 (08:22→22:07)
[2022-06-10] MEDS: Cholecalciferol 1,000 UNITS (25 MCG) TAB PO SCH (08:23)
[2022-06-10] MEDS: Metoprolol Tartrate 25 MG TAB PO SCH ×2 (08:23→22:07)
[2022-06-10] MEDS: Allopurinol 100 MG TAB PO SCH (08:23)
[2022-06-10] MEDS: Cefepime 1 GM in Sodium Chloride 0.9% 100 ML IVPB SCH ×2 (08:26→22:02)
[2022-06-10] MEDS: Polyethylene Glycol 3350 17 GM Packet PO SCH (15:38)
[2022-06-10] MEDS: Atorvastatin Calcium 40 MG TAB PO SCH (22:00)
[2022-06-10] MEDS: Tamsulosin HCl 0.4 MG CAP PO SCH (22:00)
[2022-06-10] MEDS: Lantus 1000 UNITS/10 ML VIAL SC SCH (22:19)
[2022-06-11] MEDS: Allopurinol 100 MG TAB PO SCH (08:26)
[2022-06-11] MEDS: HYDROcodone/Acetaminophen 5/325 mg Tablet PO PRN ×3 (08:26→20:27)
[2022-06-11] MEDS: Metoprolol Tartrate 25 MG TAB PO SCH ×2 (08:26→20:17)
[2022-06-11] MEDS: Mometasone/Formoterol 200/5 60 PUFF INH SCH ×2 (08:27→20:17)
[2022-06-11] MEDS: Brimonidine Tartrate 0.2% Ophth Soln 5 ml Bottle R EYE SCH ×3 (08:27→20:16)
[2022-06-11] MEDS: Cefepime 1 GM in Sodium Chloride 0.9% 100 ML IVPB SCH (08:28)
[2022-06-11] MEDS: Cholecalciferol 1,000 UNITS (25 MCG) TAB PO SCH (08:29)
[2022-06-11] MEDS: Cyanocobalamin (Vitamin B-12) 1,000 MCG TAB PO SCH (08:29)
[2022-06-11] MEDS: Polyethylene Glycol 3350 17 GM Packet PO SCH (14:07)
[2022-06-11] MEDS: Atorvastatin Calcium 40 MG TAB PO SCH (20:16)
[2022-06-11] MEDS: Tamsulosin HCl 0.4 MG CAP PO SCH (20:18)
[2022-06-11] MEDS: Lantus 1000 UNITS/10 ML VIAL SC SCH (21:27)
[2022-06-12] MEDS: HYDROcodone/Acetaminophen 5/325 mg Tablet PO PRN ×2 (08:29→21:01)
[2022-06-12] MEDS: Brimonidine Tartrate 0.2% Ophth Soln 5 ml Bottle R EYE SCH ×3 (08:39→20:15)
[2022-06-12] MEDS: Mometasone/Formoterol 200/5 60 PUFF INH SCH ×2 (08:39→21:02)
[2022-06-12] MEDS: Cholecalciferol 1,000 UNITS (25 MCG) TAB PO SCH (08:40)
[2022-06-12] MEDS: Cyanocobalamin (Vitamin B-12) 1,000 MCG TAB PO SCH (08:40)
[2022-06-12] MEDS: Metoprolol Tartrate 25 MG TAB PO SCH ×2 (08:40→20:13)
[2022-06-12] MEDS: Allopurinol 100 MG TAB PO SCH (08:40)
[2022-06-12] MEDS: Acetaminophen 325 MG TAB PO PRN (11:38)
[2022-06-12] MEDS: Polyethylene Glycol 3350 17 GM Packet PO SCH (15:45)
[2022-06-12] MEDS: Atorvastatin Calcium 40 MG TAB PO SCH (20:13)
[2022-06-12] MEDS: Tamsulosin HCl 0.4 MG CAP PO SCH (20:13)
[2022-06-12] MEDS: Lantus 1000 UNITS/10 ML VIAL SC SCH (21:02)
[2022-06-13 07:33] VITALS: BP 138/66; TEMP 98.5
[2022-06-13] MEDS: Cholecalciferol 1,000 UNITS (25 MCG) TAB PO SCH (08:44)
[2022-06-13] MEDS: Brimonidine Tartrate 0.2% Ophth Soln 5 ml Bottle R EYE SCH (08:45)
[2022-06-13] MEDS: Mometasone/Formoterol 200/5 60 PUFF INH SCH (08:45)
[2022-06-13] MEDS: Metoprolol Tartrate 25 MG TAB PO SCH (08:45)
[2022-06-13] MEDS: Cyanocobalamin (Vitamin B-12) 1,000 MCG TAB PO SCH (08:45)
[2022-06-13] MEDS: Allopurinol 100 MG TAB PO SCH (08:45)
== END 2022-06-13 11:40 | disposition home health service (06) | DRG 947 ==
LOC: MADMS 16:32
PROVIDERS: ADMIT Family Medicine; ATTEND Family Medicine
DX: R53.1 Weakness (principal); I21.4 Non-ST elevation (NSTEMI) myocardial infarction; I50.32 Chronic diastolic (congestive) heart failure; C18.4 Malignant neoplasm of transverse colon; N39.0 Urinary tract infection, site not specified; M15.9 Polyosteoarthritis, unspecified; Z96.643 Presence of artificial hip joint, bilateral; Z96.653 Presence of artificial knee joint, bilateral; N18.9 Chronic kidney disease, unspecified; D63.1 Anemia in chronic kidney disease; R33.9 Retention of urine, unspecified; R53.81 Other malaise; E11.22 Type 2 diabetes mellitus with diabetic chronic kidney disease; B96.5 Pseudomonas (aeruginosa) (mallei) (pseudomallei) as the cause of diseases classified elsewhere; G89.29 Other chronic pain; M54.50 Low back pain, unspecified; K59.00 Constipation, unspecified; R13.10 Dysphagia, unspecified; I25.10 Atherosclerotic heart disease of native coronary artery without angina pectoris; Z79.4 Long term (current) use of insulin; Z79.899 Other long term (current) drug therapy; Z88.8 Allergy status to other drugs, medicaments and biological substances; J20.9 Acute bronchitis, unspecified
CPT/HCPCS: 36415; 36416; 80048; 81001; 85025; 87077; 87086; 87186; 94664; J0692; J0696; J1815; J3490; J7620; Q0162; Q0167; Q5105

== ENCOUNTER 2022-09-26 10:00 | Emergency (ER) | payer MEDICARE ==
[2022-09-26] MEDS ORDERED: methylPREDNISolone Sod Succ/PF 125 MG/2 ML VIAL ONE (11:34)
[2022-09-26 11:38] LABS: #Basophils 0.1 thou/uL (0.0-0.2); #Eosinphils 0.1 thou/uL (0.0-0.7); #Lymphocytes 0.7 thou/uL (1.20-3.40); #Monocytes 1.2 thou/uL (0.11-0.59); #Neutrophils 9.3 thou/uL (1.40-6.50); %Basophils 0.9 % (0.0-1.0); %Eosinophils 0.5 % (0.0-10.0); %Lymphocytes 6.2 % (21.0-51.0); %Monocytes 10.2 % (0.0-10.0); %Neutrophils 82.2 % (42.0-75.0); Hemoglobin 8.5 g/dL (14.0-18.0); Mean Corpuscular HGB CONC 31.9 g/dL (32.0-36.0); Mean Corpuscular Hemoglobin 29.3 pg (27.0-31.0); Mean Corpuscular Volume 91.8 fl (78.0-98.0); Mean Platelet Volume 5.8 fL (7.4-10.4); Platelet Count 497 10x3/uL (130-400); RBC Distribution Width 16.1 % (11.5-14.5); Red Blood Cell (RBC) Count 2.89 mill/uL (4.70-6.10); White Blood Cell (WBC) Count 11.3 10x3/uL (4.8-10.8)
[2022-09-26 11:55] LABS: ALT (SGPT) 8 U/L (8-55); AST (SGOT) 9 U/L (5-34); Albumin 2.2 g/dL (3.4-4.8); Alkaline Phosphatase 72 U/L (40-110); Anion Gap 14 mmol/L (10-20); BUN (Urea Nitrogen) 23 mg/dL (8.4-25.7); Bilirubin, Total 0.4 mg/dL (0.2-1.2); Calc. Creatinine Clearance 0 mL/min (70-130); Calcium 7.8 mg/dL (7.8-10.44); Carbon Dioxide 20 mmol/L (23-31); Chloride 100 mmol/L (98-107); Estimated GFR 25; Globulin 3.3 g/dL (2.4-3.5); Glucose 123 mg/dL (83-110); Magnesium 1.9 mg/dL (1.6-2.6); Potassium 4.3 mmol/L (3.5-5.1); Protein, Total 5.5 g/dL (5.8-8.1); Sodium 130 mmol/L (136-145)
[2022-09-26 11:57] LABS: INR-International Normal Ratio 1.4; Prothrombin Time 17.7 sec (12.0-14.7)
[2022-09-26 11:58] LABS: PTT 45.1 sec (22.9-36.1)
[2022-09-26 12:07] LABS: Base Excess-Venous -3.7 mmol/L (-2.0 to 3.0); Bicarbonate (HCO3v) 21.9 mmol/L (22.0-28.0); CO2 Tension (PvCO2) 40.8 mmHg (42.0-51.0); Calcium, Ionized 1.14 mmol/L (1.15-1.33); Chloride 99 mmol/L (98-107); Hemoglobin - Calc 8.1 g/dL (14.0-18.0); Sodium 131 mmol/L (138-145); T. Carbon Dioxide 23.1 mmol/L (22.0-28.0); vO2 Saturation-calc 76.3 % (60.0-85.0)
[2022-09-26 12:35] LABS: SARS-CoV-2 NAA Rapid Test Not Detected (NotDetected)
[2022-09-26 12:35] LABS: CKMB 3.7 ng/mL (0-6.6)
== END 2022-09-26 14:10 | disposition left against medical advice (07) ==
LOC: MADERS 10:00
DX: J45.901 Unspecified asthma with (acute) exacerbation (principal); D64.9 Anemia, unspecified; E87.1 Hypo-osmolality and hyponatremia; J90 Pleural effusion, not elsewhere classified; I12.9 Hypertensive chronic kidney disease with stage 1 through stage 4 chronic kidney disease, or unspecified chronic kidney disease; E11.22 Type 2 diabetes mellitus with diabetic chronic kidney disease; N18.9 Chronic kidney disease, unspecified; Z20.822 Contact with and (suspected) exposure to COVID-19; Z87.891 Personal history of nicotine dependence; Z79.82 Long term (current) use of aspirin; Z79.899 Other long term (current) drug therapy; Z79.84 Long term (current) use of oral hypoglycemic drugs
CPT/HCPCS: 71045; 80053; 82330; 82435; 82553; 82803; 83605; 83735; 84132; 84295; 84484; 85025; 85610; 85730; 87040; 93005; 94760; 96374; J2930; J7620